=== PATIENT | male | born 1950 | race Caucasian/White ===

== ENCOUNTER → 2020-08-24 15:07 | Outpatient (BNVA) | payer OTHER, SELFPAY | PROVIDERS: Family Provider Emergency Medicine Emergency Medical Services; PCP Emergency Medicine Emergency Medical Services; Referring Provider Emergency Medicine Emergency Medical Services; Visit Provider Nurse Practitioner Family | DX: N40.1 Benign prostatic hyperplasia with lower urinary tract symptoms (principal); R32 Unspecified urinary incontinence; R97.20 Elevated prostate specific antigen [PSA] | CPT/HCPCS: 81003 ==

== ENCOUNTER → 2020-08-25 07:16 | Outpatient (BNVA) | payer OTHER, SELFPAY | PROVIDERS: Family Provider Emergency Medicine Emergency Medical Services; PCP Emergency Medicine Emergency Medical Services; Referring Provider Emergency Medicine Emergency Medical Services; Visit Provider Nurse Practitioner Family | DX: R32 Unspecified urinary incontinence (principal); N40.1 Benign prostatic hyperplasia with lower urinary tract symptoms; R97.20 Elevated prostate specific antigen [PSA] | CPT/HCPCS: 84153 ==

== ENCOUNTER 2020-09-12 09:17 | Outpatient (CLI) | payer OTHER, SELFPAY ==
--- NOTE | 2020-09-12 09:30 | MR_ITS ---
WS: [id number] MRI LEFT SHOULDER HISTORY: BICIPITAL TENDINITIS, LEFT SHOULDER COMPARISON: None available. TECHNIQUE: Multiplanar sequences of the shoulder joint are submitted. Mild hypertrophic changes involving the AC joint. Soft tissue and bone hypertrophy with increased T2 signal. Downward sloping of the acromion abutting the distal supraspinatus tendon and a moderate size osteophyte along the undersurface of the acromion. Very small amount of fluid in the subacromial bur sa. Biceps tendon is in normal position at the bicipital groove. No increased fluid within the biceps tendon sheath. No os acromion. Moderate narrowing of the acromial humeral space. There is increased T2 signal within the supraspinat us tendon beginning at the superior humeral head and extending distally. There is a small amount of f luid extending intrasubstance within the supraspinatus tendon there is a small insertion site tear an teriorly. Marked fraying along both the bursal and articular surfaces of the tendon. Infraspinatus an d supraspinatus tendons are intact. Subchondral cystic change in the posterior superior humeral head and also multiple subchondral cysts along the glenoid with loss of cartilage. Increased signal extend ing incompletely through the anterior and posterior labrum consistent with tears. MR/MR shoulder LT wo con* [id number] IMPRESSION: 1. Moderate degenerative changes at the glenohumeral joint with subchondral cy stic changes and loss of cartilage and joint space narrowing. 2. Distal 3 to 4 cm of the supraspinatus tendon with tendinopathy and a small insertion site tear with interstitial extension of fluid. 3. Acromiohumeral distance is narrowed due to a high riding humeral head and a n osteophyte from the distal undersurface of the acromion. Acromion is also sarah nsloping contributing to the encroachment. 4. Mild AC joint hypertrophy. 5. Abnormal signal in the anterior and posterior labrum from labral tears.
== END 2020-09-12 09:18 | disposition home or self-care (01) ==
LOC: RADWPI 09:20
PROVIDERS: PCP Emergency Medicine Emergency Medical Services; Visit Provider Orthopaedic Surgery
DX: M75.22 Bicipital tendinitis, left shoulder (principal)
CPT/HCPCS: 73221

== ENCOUNTER 2021-03-21 07:45 | Outpatient (CLI) | payer OTHER, SELFPAY ==
--- NOTE | 2021-03-21 07:53 | MR_ITS ---
WS: [id number] MRI BRAIN WITH AND WITHOUT CONTRAST HISTORY: MEMORY LOSS COMPARISON: None available. TECHNIQUE: Multiplanar imaging performed through the brain with MultiHance 20 ml's IV. No acute infarcts are seen. Damon-white matter differentiation is well preserved. There are a few scat tered T2 and FLAIR signal hyperintensities not unexpected for age. No prior infarcts. There is a prom inent perivascular space in the medial LEFT temporal lobe. Very mild cerebral atrophy. No susceptibility artifacts or prior lacunar infarcts. Ventricles and extra-axial spaces are normal. Clivus and pituitary gland are normal. Visualized posterior fossa and brainstem are also normal. Postcontrast images are negative for masses or vascular malformations. Dural venous sinuses are normal. Paranasal sinuses: Well aerated with no significant disease. Mastoid air cells: Moderate bilateral mastoid air cell effusions. Calvarium and scalp: Normal. MR/MR head wo/w con [id number] IMPRESSION: 1. No acute infarct or hemorrhage. 2. Mild atrophy and mild chronic microvascular ischemic disease. 3. No cerebral mass.
[2021-03-21] MEDS: gadobenate dimeglumine 20 mL vial IV (09:05)
== END 2021-03-21 07:46 | disposition home or self-care (01) ==
LOC: RADSHAW 07:49
PROVIDERS: PCP Emergency Medicine Emergency Medical Services; Visit Provider Emergency Medicine Emergency Medical Services
DX: R41.3 Other amnesia (principal); G31.9 Degenerative disease of nervous system, unspecified; I67.82 Cerebral ischemia
CPT/HCPCS: 70553; A9577

== ENCOUNTER 2021-06-01 12:04 | Outpatient (CLI) | payer OTHER, SELFPAY | END 2021-06-01 12:05 | disposition home or self-care (01) | LOC: LAB 12:07 | PROVIDERS: PCP Emergency Medicine Emergency Medical Services; Visit Provider Surgery | DX: K52.9 Noninfective gastroenteritis and colitis, unspecified (principal) | CPT/HCPCS: 83630; 87177; 87209; 87493; 87506 ==

== ENCOUNTER 2022-08-09 12:45 | Outpatient (CLI) | payer OTHER, SELFPAY ==
--- NOTE | 2022-08-09 13:10 | USCV_ITS ---
Bobby Kiran Age: 72 Gender: M : 1950 Exam Date: 08/09/2022 13:37 Ordering Phys: Edwar Mcgraw DO Technologist: PEACE Exam Location: [facility] [place] Indication: TIA BP: 128 / 80 HR: 52 Rhythm: Sinus Technical Quality: Adequate MEASUREMENTS (Male / Female) Normal Values 2D ECHO LVOT Diameter 2.0 cm LV Ejection Fraction MOD 2C 58.9 % LV Ejection Fraction 2C AL 58.0 % LA Diameter 3.1 cm LA Width 2.3 cm LA Height 5.1 cm RA Width 2.8 cm RA Height 4.0 cm Aorta at Sinotubular Diameter 2.7 cm M-MODE Aortic Annulus Diameter 2.9 cm LA Ao Ratio MM 1.0 MV E Point Septal Separation 0.7 cm DOPPLER AV Peak Velocity 147.0 cm/s LVOT Peak Velocity 116.0 cm/s AV Area Cont Eq vti 2.5 cm squared AV Area Cont Eq pk 2.5 cm squared MV Peak Velocity 95.0 cm/s MV Area PHT 2.9 cm squared Mitral E to A Ratio 0.9 MV E' Velocity 48.0 cm/s Mitral E to MV E' Ratio 9.4 Mitral E to LV E' Lateral Ratio 8.2 Mitral E to LV E' Septal Ratio 11.1 TR Peak Velocity 213.8 cm/s TR Peak Gradient 18.3 mmHg TR Mean Velocity 210.9 cm/s TR Mean Gradient 18.1 mmHg TR Velocity Time Integral 84.4 cm TV Peak E Velocity 49.0 cm/s Right Atrial Pressure 8.0 mmHg Pulmonary Artery Systolic Pressu 26.3 mmHg PV Peak Velocity 115.0 cm/s RV Acceleration Time 0.2 s RV Ejection Time 0.3 s RV AcT/ET 0.5 FINDINGS Left Ventricle Normal LV size with normal LV ejection fraction of 59%.. No significant wall motion abnormalities grade I/IV diastolic dysfunction (abnormal relaxation filling pattern), normal to mildly elevated filling pressures. Right Ventricle The right ventricle is normal in size and function. Right Atrium The right atrium is normal in size. Left Atrium Mildly increased left atrial size. Mitral Valve Mild mitral valve regurgitation. Aortic Valve No gross abnormalities noted Tricuspid Valve Trace of tricuspid regurgitation Pulmonic Valve Pulmonic valve not well visualized. Pericardium Normal pericardium without effusion. Aorta Normal ascending aorta dimension. IVC Normal inferior vena cava. CONCLUSIONS Normal LV size with normal LV ejection fraction of 59%. No gross wall motion normalities. Grade I/IV diastolic dysfunction (abnormal relaxation filling pattern), normal to mildly elevated filling pressures. Mildly increased left atrial size. Mild mitral valve regurgitation. Trace of tricuspid regurgitation There is no pericardial effusion. There are no intracardiac masses. No similar previous studies are available for comparison Dr Bridgette Cortes MD FACC (Electronically Signed) Final Date: 09 August 2022 20:27 S
--- NOTE | 2022-08-09 13:34 | USCV_ITS ---
Bobby Kiran Age: 72 Gender: M : 1950 Exam Date: 08/09/2022 13:53 Ordering Phys: Edwar Mcgraw DO Technologist: KIM Exam Location: [facility] [place] Indication: HX of TIA Risk Factors: Previous Vascular Surgery: Right Brachial BP: / Left Brachial BP: / Right Left Velocity (cm/s) Spectral Plaque Velocity (cm/s) Spectral Plaque Syst/Diast Broadening Syst/Diast Broadening 73.90/ 17.60 Prox CCA 76.10 / 12.40 72.80/ 19.80 Mid CCA 74.60 / 14.00 52.00/ 14.00 Distal CCA 63.10 / 17.10 41.90/ 14.00 Prox ICA 73.60 / 23.70 41.90/ 23.30 Mid ICA 72.30 / 26.30 89.30/ 32.00 Distal ICA 72.60 / 29.10 75.40 ECA 69.70 1.21 ICA/CCA 0.97 Antegrade Vertebral Antegrade 52.90/ 9.90 cm/s 56.40/ 15.40 cm/s Tri Subclavian Tri 268.9 145.7 0 0 FINDINGS Comparison: none available. No significant elevation of systolic or diastolic velocities. Waveforms are normal. No significant amount of calcified plaque or intimal thickening identified. Antegrade vertebral arteries. CONCLUSIONS Normal carotid doppler ultrasound. Dr. Nakia Boles DO (Electronically Signed) Final Date: 09 August 2022 14:28 S
== END 2022-08-09 12:46 | disposition home or self-care (01) ==
PROVIDERS: PCP Emergency Medicine Emergency Medical Services; Visit Provider Emergency Medicine Emergency Medical Services
DX: Z86.73 Personal history of transient ischemic attack (TIA), and cerebral infarction without residual deficits (principal); I08.1 Rheumatic disorders of both mitral and tricuspid valves
CPT/HCPCS: 93306; 93880

== ENCOUNTER 2024-06-21 15:07 | Outpatient (CLI) | payer OTHER, SELFPAY | END 2024-06-21 15:08 | disposition home or self-care (01) | LOC: LAB 15:13 | PROVIDERS: PCP Family Medicine; Visit Provider Urology | DX: R97.20 Elevated prostate specific antigen [PSA] (principal) | CPT/HCPCS: 36415; 84153 ==

== ENCOUNTER → 2024-06-30 08:24 | Outpatient (BNVA) | payer MEDICARE, OTHER, SELFPAY | PROVIDERS: PCP Family Medicine; Visit Provider Podiatrist Foot & Ankle Surgery | DX: M79.671 Pain in right foot (principal); L84 Corns and callosities | CPT/HCPCS: 73630; 99203 ==

== ENCOUNTER → 2024-08-18 14:39 | Outpatient (BNVA) | payer OTHER, SELFPAY | PROVIDERS: PCP Family Medicine; Visit Provider Podiatrist Foot & Ankle Surgery | DX: L84 Corns and callosities (principal) | CPT/HCPCS: 99213 ==

== ENCOUNTER 2024-10-19 07:34 | Outpatient (CLI) | payer OTHER, SELFPAY ==
[2024-10-19 07:53] VITALS: BMI 16.9
--- NOTE | 2024-10-19 07:56 | ECG_ITS ---
[place] Test Date: 2024-10-19 Pat Name: Bobby Kiran Department: Room: Gender: Male Brand Advisor: : 1950 Requested By: Jenny Kasper Order Number: [id number] Reading MD: ELENA SIMMONS Interpretive Statements Lung unchanged pre/post procedure; Intraprocedure shortess of breath; Symptoms resoled by discharge EXERCISE DATA: The patient was exercised by Marcelino protocol. Baseline heart rate was 89 beats per minute. Baseline blood pressure was 143/86 millimeters of mercury. Target heart rate was 147 beats per minute. Maximum heart rate achieved was 134, which was 91 % of the target heart rate. Maximum blood pressure was 160/112 millimeters of mercury. Total exercise time was 6 minutes 59 seconds. Maximum METs achieved was 10.2, maximum VO2 was 35.7. The reason for ending the test was maximum effort achieved. The patient complained of shortness of breath during the stress test, which then resolved at the end of the test. ELECTROCARDIOGRAM: BASELINE: Showed sinus rhythm, normal axis, no significant ST-T changes at the baseline noted. EXERCISE: At the peak exercise level, no significant ST-T changes suggestive of ischemia noted. RECOVERY: During the recovery period, heart rate dropped appropriately. No significant ST-T changes in the recovery suggestive of ischemia noted. CONCLUSION: 1. Exercise capacity fair. 2. Heart rate response was appropriate. 3. Blood pressure response was appropriate. 4. Symptoms not suggestive of ischemia. 5. Electrocardiogram portion of the stress test was not suggestive of ischemia. 6. Nuclear scan will be documented separately. Electronically Signed On 10-26-2024 19:17:57 CDT by ELENA SIMMONS [email or web address]
--- NOTE | 2024-10-19 07:57 | NMCV_ITS ---
NM gabriella perf SPECT r/s* [id number] Bobby Kiran Age: 74 Gender: M : 1950 Exam Date: 10/19/2024 08:43 Ordering Phys: Jenny Kasper MD Technologist: HAYDE Rahman Exam Location: [facility] Indications: cp STRESS TEST Please [facility] IMAGE PROTOCOL Rest/Stress 1 Exercise Day Radiopharmaceutical Dose (mCi) Administration Site Administered by Rest: Tc-99m 10.9 IV Maria Victoria Corbin, PROJECT ADMIN Sestamibi Stress:Tc-99m 32.8 IV Maria Vitcoria Corbin, PROJECT ADMIN Sestamibi Rest: 19-Oct-2024 60 Discovery 630 Stress: 19-Oct-2024 30 Discovery 630 Radiopharmaceutical was injected at 85 % maximum heart rate. Images obtained in supine and prone position. SPECT RESULTS Technical Quality: Good Raw Data Analysis: Normal Image Corrections: No attenuation or motion correction applied Summed Stress Score: 5 Summed Rest Score: 9 Summed Difference Score: 1 PERFUSION FINDINGS Medium sized area of fixed perfusion defect noted in basal to distal inferior wall suggestive of old myocardial infarction versus scarring. This study is negative for ischemia but shows old myocardial infarction in RCA territory. FUNCTIONAL RESULTS (calculated via Gated SPECT) Stress Image LV EF (%): 60 Stress EDV (mL):101 TID: 0.86 Stress ESV (mL):40 FUNCTIONAL FINDINGS: There appeared to be basal to distal inferior wall akinesis IMPRESSIONS Medium sized area of fixed perfusion defect noted in basal to distal inferior wall suggestive of old myocardial infarction versus scarring. This study is negative for ischemia but shows old myocardial infarction in RCA territory. Nayan Gómez MD (Electronically Signed) Final Date: 26 Oct 2024 12:34 S
[2024-10-19 09:30] VITALS: BP 100/70; PULSE 72
== END 2024-10-19 07:35 | disposition home or self-care (01) ==
LOC: CDL 07:35
PROVIDERS: PCP Family Medicine; Visit Provider Family Medicine
DX: R07.9 Chest pain, unspecified (principal); R93.1 Abnormal findings on diagnostic imaging of heart and coronary circulation; I25.2 Old myocardial infarction
CPT/HCPCS: 36415; 78452; 93017; 96374; A9500

== ENCOUNTER 2025-02-17 14:27 | Emergency (ER) | payer OTHER, SELFPAY ==
--- OUTSIDE RECORDS SUMMARY | 2024-05-31 08:00 | XMS_ITS | Encounter Summary ---
Author Name [facility] Address [address] [place] [address] Care Team Providers Care Transplanter Orchid Name Role Phone ILIANA GOODEN Primary Care Provider Unavailabl e Insurance Providers: All historical and current Section Date Range: From patient's date of to the date document was created. This section includes the names of all active insurance providers for the patient. Insurance Provider Type of Coverage Plan Name Start of Policy Coverage End of Policy Coverage Group Number Member ID Insurance Provider's Telephone Number Policy Canas's Name Patient's Relationship to Policy Canas MEDICARE (WNR) MEDICARE (M) PART A Jul 24, 2016 PART A [id number] [phone] LISSETTEMARIO PATIENT MEDICARE (WNR) MEDICARE (M) PART A Jul 24, 2016 PART A [id number] MARIO MCLAUGHLIN PATIENT Selected Encounter This section includes the information on record at [place] for the Encounter. Date/Time Encounter Type Encounter Description Reason Provider Source May 31, 2024 01:00 PM TELEHEALTH FACILITY FEE PRIMARY CARE/MEDICINE ICD-10-CM M79.674 Pain in right toe(s) JASMINA NICOLE Encounter Template Text not used by VA Assessments - Encounter Diagnoses This section includes the primary and secondary diagnoses documented for the Encounter. Date/Time Primary/Secondary Diagnosis Diagnosis Name Provider Source Jun 01, 2024 09:08 AM PRIMARY Pain in right toe(s) SATISH HOOKS [facility] Plan of Treatment: Future Appointments (+ 6 months) and Future Tests (+/- 45 days) The Plan of Treatment section includes [facility] care activities for the [facility] [place] [facility] This section includes future appointments and future orders which are active, pending or scheduled. Future Appointments This section includes appointments that were scheduled to occur 6 months from the date of the Encounter, up to a maximum of 20 appointments. The data comes from all [place] treatment facilities. Appointment Date/Time Appointment Type Appointme nt Facility Name Jun 14, 2024 11:41 AM AMBULATORY - MEDICINE [facility] Jun 30, 2024 09:00 AM AMBULATORY - MEDICINE [facility] Jul 07, 2024 11:00 AM AMBULATORY - MEDICINE [facility] Jul 22, 2024 10:40 AM AMBULATORY - MEDICINE [facility] Sep 20, 2024 08:00 AM AMBULATORY - MEDICINE [facility] Oct 04, 2024 02:30 PM AMBULATORY - MEDICINE [facility] Oct 19, 2024 08:15 AM AMBULATORY - MEDICINE [facility] Vital Signs: All taken on the encounter date This section contains inpatient and outpatient Vital Signs collected on the date of the Encounter. Date/Time Temperature Pulse Blood Pressure Respiratory Rate SP02 Pain Height Weight Body Mass Index Source May 31, 2024 01:07 PM 72 138/78 95 [facility] May 31, 2024 01:06 PM 71 18 97 0 72.0 234.8 32 [facility] Social History: Smoking Status (Most current) and Tobacco Use (All prior to encounter date) This section includes the most current, and the historical, smoking and tobacco- related health factors from the [place] facility where the Encounter took place. Current Smoking Status This section includes the most current smoking, or tobacco-related health factor, from the [place] facility where the Encounter took place. Date/Time Current Smoking Status Comment Alem willis Jan 15, 2024 09:00 AM VA-TOBACCO FORMER USER [facility] Tobacco Use History This section includes a history of the smoking, or tobacco-related health factors, that were collected on or before the date of the Encounter. The data comes from the [place] facility where the Encounter took place. Date/Time Smoking Status/Tobacco Use Comment F acility Jan 15, 2024 09:00 AM VA-TOBACCO QUIT 15 YRS OR MORE [facility] Apr 30, 2022 01:00 PM VA-TOBACCO FORMER USER [facility] Apr 30, 2022 01:00 PM VA-TOBACCO QUIT 15 YRS OR MORE [facility] Mar 13, 2021 11:00 AM VA-TOBACCO FORMER USER [facility] Mar 13, 2021 11:00 AM VA-TOBACCO QUIT 15 YRS OR MORE [facility] Mar 24, 2018 11:33 AM QUIT TOBACCO >7 YEARS AGO [facility] Feb 11, 2018 02:19 PM QUIT TOBACCO >7 YEARS AGO [facility] Apr 07, 2008 09:34 AM QUIT TOBACCO >7 YEARS AGO [facility] Dec 23, 2007 03:21 PM QUIT TOBACCO >7 YEARS AGO [facility] Advance Directives: All historical and current Section Date Range: From patient's date of to the date document was created. This section includes ALL of a patient's completed or amended [place] Advance and Rescinded Directives. The entries below indicate that a directive exists for the patient, but an actual copy is not included with this document. The data comes from all [facility]. Date Advance Directives Provider Source Mar 17, 2017 ADVANCE DIRECTIVE SEJAL ACOSTA [facility]UL[facility] Radiology Reports: +/- 30 days of the encounter Radiology Reports For cases when an order for radiology services may have been completed prior to the date of the Encounter, the report list includes the Radiology Reports that were completed up to 30 days before dateof the Encounter. For cases when an order for radiology services may have been completed after the date of the Encounter, the report list also includes the Radiology Reports that were completed up to30 days after date of the Encounter. The data comes from all [place] treatment facilities. Date/Time Radiology Report Provider Source May 31, 2024 03:27 PM FOOT,RIGHT,3 VIEWS OR MORE: MARYNarcisaSHYMARIO MADELINE [id number] -1950 M Exm Date: MAY 31, 2024@15:27 Req Phys: JASMINA NICOLE Loc: PB-POC CVT POCKET MAKER(PRO) (Req'g Loc) Img Loc: PB-XRAY [place] Service: [place] [address] (Case [id number] COMPLETE) FOOT,RIGHT,3 VIEWS OR MORE (RAD Detailed) CPT:66501 Proc Modifiers : RIGHT Reason for Study: pain of 5th toe, right foot. Clinical History: Report Status: Verified Date Reported: MAY 31, 2024 Date Verified: MAY 31, 2024 Data Support Specialist E-Sig: Report: EXAM: Right foot AP, oblique, and lateral views. FINDINGS: There is no acute fracture or dislocation. There is hallux valgus. There are degenerative changes including bunion deformity involving the first MTP joint. Impression: 1. No evidence of acute osseous injury involving the right foot. 2. Hallux valgus. 3. Degenerative changes Primary Interpreting Staff: Lenka Fritz M.D., Radiology (Data Support Specialist, no e-sig) /LENKA LUIS [facility] Encounter Notes: All associated encounter notes This section contains the clinical notes associated to the Encounter. Date/Time Encounter Note(s) Provider Source May 31, 2024 12:58 PM PRIMARY CARE NURSI NG NOTE: LOCAL TITLE: PRIMARY CARE NURSING PROGRESS NOTE (TEXT) NURSING P STANDARD TITLE: PRIMARY CARE NURSING NOTE DATE OF NOTE: MAY 31, 2024@12:58 ENTRY DATE: MAY 31, 2024@12:58:58 AUTHOR: SATISH HOOKS EXP COSIGNER: URGENCY: STATUS: COMPLETED Established Patient MARIO MCLAUGHLIN IS A 73 YEAR OLD MALE BEING SEEN IN CLINIC MAY 31, 2024. REASON FOR VISIT: here today with c/o Redness and Pain to Right 5th toe/foot. He reports is has been a problem for several months and would like something done. On the Fifth toe there is a Calus on the inside of the 5th toe. He reports it is painful to touch. He is using Wood pads and gets some relief from that. He reports it is much better when he is not wearing shoes. Are you receiving care any where other than the [facility]? No HEALTH AND SURGICAL HISTORY: Does patient report using home oxygen? No CURRENT ACTIVE MEDICATIONS FOR REVIEW: Allergies/ADRs (Tool #5) FACILITY ALLERGY/ADR -------- No Remote Allergy/ADR Data available for this patient [facility] No Known Allergies Med. Reconciliation (Tool #1) INCLUDED IN THIS LIST: Alphabetical list of active outpatient prescriptions dispensed from this [place] (local) and dispensed from another [place] or [facility] facility (remote) as well as inpatient orders (local pending and active), local clinic medications, locally documented non-VA medications, and local prescriptions that have or been discontinued in the past 90 days. Non-VA Meds Last Documented On: Jan 09, 2023 NOTE The display of VA prescriptions dispensed from another [place] or [facility] facility (remote) is limited to active outpatient prescription entries matched to National Drug File at the originating site and may not include some items such as investigational drugs, compounds, etc. NOT INCLUDED IN THIS LIST: Medications self-entered by the patient into personal health records (i.e. [employer]) are NOT included in this list. Non-VA medications documented outside this [place], remote inpatient orders (regardless of status) and remote clinic medications are NOT included in this list. The patient and provider must always discuss medications the patient is taking, regardless of where the medication was dispensed or obtained. OUTPT ATORVASTATIN CALCIUM 20MG TAB (Status = Active/Suspended) TAKE ONE TABLET BY MOUTH EVERY EVENING FOR HIGH CHOLESTEROL Rx# [id number] Last Released: 04/24/24 Qty/Days Supply: Rx Expiration Date: 01/15/25 Refills Remainin Indication: FOR HIGH CHOLESTEROL OUTPT CETIRIZINE HCL 10MG TAB (Status = Active) TAKE ONE TABLET BY MOUTH ONCE A DAY FOR ALLERGY SYMPTOMS Rx# [id number] Last Released: 02/11/24 Qty/Days Supply: Rx Expiration Date: 02/09/25 Refills Remainin Indication: FOR ALLERGY SYMPTOMS Non-VA CHOLECALCIF 50MCG (D3-2,000UNIT) TAB TAKE ONE TABLET BY MOUTH ONCE A DAY Medication prescribed by Non-VA provider OUTPT MEMANTINE HCL 10MG TAB (Status = Discontinued) TAKE ONE TABLET BY MOUTH EVERY MORNING AND TAKE ONE TABLET EVERY EVENING Rx# [id number] Last Released: 04/13/24 Qty/Days Supply: Rx Expiration Date: 07/07/24 Refills Remainin OUTPT MEMANTINE HCL 10MG TAB (Status = Active/Suspended) TAKE ONE TABLET BY MOUTH EVERY MORNING AND TAKE ONE TABLET EVERY EVENING Rx# [id number] Last Released: QtDays Supply: Rx Expiration Date: 07/18/24 Refills Remainin OUTPT MONTELUKAST NA 10MG TAB (Status = Discontinued) TAKE ONE TABLET BY MOUTH EVERY EVENING Rx# [id number] Last Released: 12/05/23 Qty/Days Supply: Rx Expiration Date: 03/24/24 Refills Remainin OUTPT MONTELUKAST NA 10MG TAB (Status = Active) TAKE ONE TABLET BY MOUTH EVERY EVENING Rx# [id number] Last Released: 03/29/24 Qty/Days Supply: Rx Expiration Date: 03/27/25 Refills Remainin OUTPT SILDENAFIL CITRATE 100MG TAB (Status = Active) TAKE ONE TABLET BY MOUTH EVERY WEEK NEEDED FOR ERECTILE DYSFUNCTION (TAKE 60 MINUTES PRIOR TO SEXUAL ACTIVITY) - LIMIT 4 DOSES PER 30 DAYS Rx# [id number] Last Released: 05/28/24 Qty/Days Supply: Rx Expiration Date: 05/25/25 Refills Remainin OUTPT TAMSULOSIN HCL 0.4MG CAP (Status = Active) TAKE ONE CAPSULE BY MOUTH EVERY EVENING APPROXIMATELY 30 MINUTES AFTER THE SAME MEAL EACH DAY (FOR PROSTATE) Rx# [id number] Last Released: 04/30/24 Qty/Days Supply: Rx Expiration Date: 01/30/25 Refills Remainin SUPPLIES PHARMACY TERMS AND POSSIBLE PATIENT ACTIONS INPT = [place] inpatient order IV = [place] intravenous medication OUTPT = [place] outpatient prescription PHARMACY POSSIBLE PATIENT TERMS EXPLANATION ACTIONS -------- --- ACTIVE A prescription that can be If you have refills, filled at the local [place] pharmacy. you may request a refill of this prescription from your [place] pharmacy. CLINIC A medication you received during If you have questions a visit to a [place] clinic or about this medication emergency department. contact your [place] healthcare team. DISCONTINUED A prescription your provider has Contact your [place] stopped. It is no longer healthcare team if you available to be sent to you or need more of this picked up at the [place] pharmacy medication. window. A prescription which is too old Contact your [place] to fill. This does not refer to healthcare team if you the expiration date of the need more of this medication in the container. medication. NON-VA A medication that came from If this medication someplace other than a VA information is pharmacy. This may be a incorrect or out of prescription from either the VA date, please tell your or non VA providers that was VA healthcare team. filled outside the VA. Or, it may be an [id number] (OTC), herbal, dietary supplements or sample medication. ON HOLD An active prescription that will Contact your VA not be filled until pharmacy pharmacy when you need resolves the issue. more of this medication. PARKED An active prescription that will Contact your VA not be filled until the patient pharmacy when you need requests it. this medication. PENDING This prescription order has been If you have been sent to the pharmacy for review instructed to start and is not ready yet. this medication now, contact your VA pharmacy. SUSPENDED An active prescription that is Contact your VA not scheduled to be filled yet. pharmacy if you need You should receive it before this medication now. you run out. ======== Patient reports taking medications as IS PATIENT TAKING ANY OVER THE COUNTER MEDICATIONS, SUCH VITAMINS OR HERBAL SUPPLEMENTS, INCLUDING ANY MEDICATIONS PRESCRIBED BY ANOTHER PHYSICIAN? No ALLERGIES/ADVERSE REACTIONS: Patient has answered NKA Does patient have any new allergies to report since last visit? NO VITALS: TEMPERATURE: 97.8 F [36.6 C] (01/15/2024 09:05) BP: 137/84 (01/15/2024 09:44) RESP: 19 (01/15/2024 09:05) PULSE: 57 (01/15/2024 09:05) HT: 72.0 in [182.9 cm] (01/15/2024 09:05) WT: 230.8 lb [104.69 kg] (01/15/2024 09:05) BMI: 31.4 PAIN ASSESSMENT: (Most Recent Pain Score in Vitals Package: 0 (01/15/2024 09:05) ) The patient indicated that they and their close contacts have not traveled outside of the [place] in the past 21 days. The patient reports the following symptoms: No symptoms present The patient is not immunocompromised. The patient does not report having a history of Multi Drug Resistant Organism (MDRO) within the last five years. The patient does not report having been exposed to measles, chickenpox, or zoster in last 30 days. Patient reports no pain at this visit. Pain Score = 0. STRESS: Thank you for your service. Now let us serve you. At the [facility], we strive to provide you with exceptional health care that improves your health and well-being. Are you feeling sad, empty, or depressed? No Do you need to talk about things in your life that worry you or cause you stress? No Do you need to talk about personal problems, family problems, alcohol use, drug use, or mental or emotional illness? No SUICIDE SCREENING: The patient was asked, Over the past two weeks, how often have you been bothered by thoughts that you would be better off or of hurting yourself in some way? Not At All SPIRITUAL ASSESSMENT: Are there sabianist practices or spiritual concerns you want the merchandise presentation manager, your physician, and other health care team members to immediately know about? No Patient advised to call the clinic for any concerns, questions, or symptoms. Patient and/or caregiver verbalized understanding of plan of care. /reyna/ SATISH HOOKS LPN Signed: 05/31/2024 13:26 SATISH HOOKS [facility]
--- OUTSIDE RECORDS SUMMARY | 2024-05-31 08:01 | XMS_ITS | Encounter Summary ---
Author Name [facility] [place] [place] Organization [facility] [place] Address [address] [place] [address] Care Team Providers Care Oil Sales And Service Rep Name Role Phone GIACOMOILIANA MAGAÑA Primary Care Provider Unavailabl e Insurance Providers: [...] PART A Jul 24, 2016 PART A [id number] LISSETTEMARIO PATIENT MEDICARE (WNR) MEDICARE (M) PART A Jul 24, 2016 PART A [id number] MARIO MCLAUGHLIN PATIENT Selected Encounter This section includes the information on record at [place] for the Encounter. Date/Time Encounter Type Encounter Description Reason Provider Source May 31, 2024 01:01 PM OFFICE O/P EST LOW 20 MIN PRIMARY CARE/MEDICINE ICD-10-CM M79.674 Pain in right toe(s) JASMINA NICOLE Encounter Template Text not used by [facility] Assessments - Encounter Diagnoses This section includes the primary and secondary diagnoses documented for the Encounter. Date/Time Primary/Secondary Diagnosis Diagnosis Name Provider Source May 31, 2024 01:28 PM PRIMARY Pain in right toe(s) [facility]AS[facility]A NICOLE [facility] Plan of Treatment: Future Appointments (+ 6 months) and Future Tests (+/- 45 days) The Plan of Treatment section includes future care activities for the [facility] This section includes future appointments and future orders which are active, pending or scheduled. Future Appointments This section includes appointments that were scheduled to occur 6 months from the date of the Encounter, up to a maximum of 20 appointments. The data comes from all [facility]. Appointment Date/Time Appointment Type Appointme nt Facility Name Jun 14, 2024 11:41 AM AMBULATORY - MEDICINE [facility] Jun 30, 2024 09:00 AM [facility] Jul 07, 2024 11:00 AM [facility] Jul 22, 2024 10:40 AM AM[facility] Sep 20, 2024 08:00 AM AMBULATORY - MEDICINE [facility] Oct 04, 2024 02:30 PM AMBULATORY - MEDICINE [facility] Oct 19, 2024 08:15 AM AMBULATORY - MEDICINE [facility] Advance Directives: All historical and current Section Date Range: From patient's date of to the date document was created. This section includes ALL of a patient's completed or amended [place] Advance and Rescinded Directives. The entries below indicate that a directive exists for the patient, but an actual copy is not included with this document. The data comes from all [facility]. Date Advance Directives Provider Source Mar 17, 2017 ADVANCE DIRECTIVE SEJAL ACOSTA [facility] Radiology Reports: +/- 30 days of the [...] the Encounter. The data comes from all [facility] treatment facilities. 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 Clinical History: Report Status: Verified Date Reported: MAY 31, 2024 Date Verified: MAY 31, 2024 Sulfuric Acid Plant Operator E-Sig: Report: EXAM: Right foot AP, oblique, and lateral views. FINDINGS: There is no acute fracture or dislocation. There is hallux valgus. There are degenerative changes including bunion deformity involving the first MTP joint. Impression: 1. No evidence of acute osseous injury involving the right foot. 2. Hallux valgus. 3. Degenerative changes Primary Interpreting Staff: Lenka Fritz M.D., Radiology (Sulfuric Acid Plant Operator, no e-sig) /LENKA LUIS [facility] Encounter Notes: All associated encounter notes This section contains the clinical notes associated to the Encounter. Date/Time Encounter Note(s) Provider Source May 31, 2024 01:21 PM PRIMARY CARE PROGR ESS NOTE: LOCAL TITLE: PRIMARY CARE CLINIC PROGRESS NOTE PB STANDARD TITLE: PRIMARY CARE PROGRESS NOTE DATE OF NOTE: MAY 31, 2024@13:21 ENTRY DATE: MAY 31, 2024@13:21:42 AUTHOR: JASMINA NICOLE EXP COSIGNER: URGENCY: STATUS: COMPLETED SUBJECTIVE: MARIO MCLAUGHLIN is a 73 y.o.MALE. HPI: contacted via Telehealth appointment due to location/staffing limitations. Patient is located at the [facility] for this appointment, whereas [facility] affiliated provider is located off-site utilizing remotely secured video connection. Patient is being seen for a pain of right 5th toe with callus to medial side of this toe. he has not been evaluated by podiatry. he is not diabetic. denies injury to foot. denies fever. denies drainag from affected area. He is agreeable to podiatry apt. Problem List 1) Depression 2) Elevated PSA 3) Primary erectile dysfunction 4) Insomnia 5) Memory loss 6) Lacunar infarction 7) COPD - Chronic Obstructive Pulmonary Disease (SCT [id number]) 8) Carotid artery stenosis 9) Bilateral tinnitus 10) Sensorineural hearing loss of bilateral ears 11) Mild neurocognitive disorder 12) Allergic Rhinitis ([facility] [id number]) Active Outpatient Medications (including Supplies): Active Outpatient Medications Status 1) ATORVASTATIN CALCIUM 20MG TAB TAKE ONE TABLET BY ACTIVE (S) MOUTH EVERY EVENING FOR HIGH CHOLESTEROL 2) CETIRIZINE HCL 10MG TAB TAKE ONE TABLET BY MOUTH ONCE ACTIVE A DAY FOR ALLERGY SYMPTOMS 3) MEMANTINE HCL 10MG TAB TAKE ONE TABLET BY MOUTH EVERY ACTIVE (S) MORNING AND TAKE ONE TABLET EVERY EVENING 4) MONTELUKAST NA 10MG TAB TAKE ONE TABLET BY MOUTH ACTIVE EVERY EVENING 5) SILDENAFIL CITRATE 100MG TAB TAKE ONE TABLET BY MOUTH ACTIVE EVERY WEEK NEEDED FOR ERECTILE DYSFUNCTION (TAKE 60 MINUTES PRIOR TO SEXUAL ACTIVITY) - LIMIT 4 DOSES PER 30 DAYS 6) TAMSULOSIN HCL 0.4MG CAP TAKE ONE CAPSULE BY MOUTH ACTIVE EVERY EVENING APPROXIMATELY 30 MINUTES AFTER THE SAME MEAL EACH DAY (FOR PROSTATE) Active Non-VA Medications Status 1) Non-VA CHOLECALCIF 50MCG (D3-2,000UNIT) TAB 50MCG BY ACTIVE MOUTH ONCE A DAY 7 Total Medications Allergies: Patient has answered NKA Review of Systems Systemic: Denies fatique, fever, chills, or weight loss CV: Denies chest pain, palpitations Pulm: Denies hemoptysis GI: Denies constipation, bloody stools. Musculo- skeletal: Denies swelling Neuro: Denies slurred speech Skin: Denies abnormal lesions; denies any new rashes PSYCH: Denies SI/HI OBJECTIVE: Vital Signs Temperature: 97.8 F [36.6 C] (01/15/2024 09:05) Respiratory Rate: 18 (05/31/2024 13:06) Pulse Rate: 72 (05/31/2024 13:07) Blood Pressure: 138/78 (05/31/2024 13:07) HT: 72.0 in [182.9 cm] (05/31/2024 13:06) WT: 234.8 lb [106.50 kg] (05/31/2024 13:06) BMI: 31.9 SPO2: 95% (05/31/2024 13:07) Vital Signs per chart to date and reviewed by signee. Physical Exam: exam completed utilising telecart with clear steth. General: NAD noted, A&Ox3, pleasant, appears stated age HEENT: NCAT Neck: Supple, normal ROM Heart: s1 s2 wnl, no murmurs noted. Resp: Respirations even and unlabored; CTA APL Abdomen: Non-distended appearing Musculo- skeletal: No obvious deformity skin: 5th toe right foot with callus present. no open lesions, drainage, or erythema present. Neuro: Grossly intact Psych: Affect normal, answers questions appropriately throughout visit A/P: ASSESSMENT and PLAN Callus of right 5th toe: poditary consult placed. keep area clean and dry. place barrier between 4th and 5th toe. I would suggest getting a wider shoe as the shoes he has on do appear narrow. f/u w/ podiatry as directed. Stable. Discussed health conditions listed above and medications with patient; med rec completed. Continue current regimen as prescribed by PCP and specialists. RTC as needed if developing any new or worsening symptoms. Please notify PACT with medication changes or for orders coordination as needed if seen by a specialist in the future. Will f/u with patient once updated labs / imaging / testing received; otherwise f/u as listed below. Follow-up: months and/or as needed. All questions answered; agrees to plan of care. Follow up as listed above, annually, and as needed. Keep all appointments. Medications Reconciled. Time spent 30 minutes. Discussed with patient that in the event of community imaging / testing being ordered in the future, once the imaging / testing has been completed, please notify PACT of completion at outside facility if not called with results within 1 week by a [facility] PACT member; this is due to intermittent lapses in notification of imaging completion within [facility]. Appointment was conducted via [facility] Video Connect, Video to home, or Telehealth via in-person interview within the local [place] [facility] as discussed in note above. VVC / Video to home / Telehealth via in-person interview appointment information: The following items were reviewed: - The nature of telehealth, its benefits, and risks. - Confidentiality and its limits. - The importance of having a confidential location for the service. - The emergency plan. - The appointment should be treated like an in person appointment (no smoking or driving during session, showing up fully dressed, etc.) *The Virtual Medical Room locked for this encounter (VVC or Video to home). *A survey of the environment was conducted and it is appropriate to conduct a CVT/VVC appointment. *Confirmed [place]'s Non-VA location for appointment (VVC or Video to home). *[place] was notified of right to decline Telehealth services and eligibility for other options. consented to be seen via CVT/VVC/Telehealth via in-person interview at local CB. EMERGENCY PLAN In the event of an emergency, the [place] or family will call emergency services, if capable. Teleprovider will remain in the virtual medical room until emergency response arrives and handoff to emergency services is complete. If is unable to make emergency call, Teleprovider is to call the national E911 service at [phone] and ask to be connected to emergency services for the [place]'s location. Crisis Hotline: 589.439.2973 [employer] Help Desk ([employer]): 366.259.7064 or [phone] Verified Provider's location and contact information for this appointment: Other Location: [facility] or Remote from home /es/ DIMAS SANCHEZ-ADAN NASSAR [facility] Signed: 05/31/2024 13:26 JASMINA NICOLE [facility]
--- OUTSIDE RECORDS SUMMARY | 2024-06-14 06:41 | XMS_ITS | Encounter Summary ---
Author Name [facility] [place] Organization [place] Address [address] [place] [address] Care Team Providers Care International Marketing Specialist Name Role Phone ILIANA GOODEN Primary Care [...] PART A Jul 24, 2016 PART A [id number] LISSETTEMARIO PATIENT MEDICARE (WNR) MEDICARE (M) PART A Jul 24, 2016 PART A [id number] MARIO MCLAUGHLIN PATIENT Selected Encounter This section includes the information on record at [place] for the Encounter. Date/Time Encounter Type Encounter Description Reason Provider Source Jun 14, 2024 11:41 AM OFF/OP EST OCTOBER X REQ PHY/QHP PRIMARY CARE/MEDICINE ICD-10-CM M79.674 Pain in right toe(s) CUSTRED,LEIGH J IHE Encounter Template Text not used by [place] Assessments - Encounter Diagnoses This section includes the primary and secondary diagnoses documented for the Encounter. Date/Time Primary/Secondary Diagnosis Diagnosis Name Provider Source Jun 14, 2024 02:23 PM PRIMARY Pain in right toe(s) DEELEIGH Rea [facility] Plan of Treatment: Future Appointments (+ 6 months) and Future Tests (+/- 45 days) The Plan of Treatment section includes future care activities for the patient from all [place] treatmentfacilities. This section includes future appointments and future orders which are active, pending or scheduled. Future Appointments This section includes appointments that were scheduled to occur 6 months from the date of the Encounter, up to a maximum of 20 appointments. The data comes from all [place] treatment facilities. Appointment Date/Time Appointment Type Appointme nt Facility Name Jun 30, 2024 09:00 AM AMBULATORY - MEDICINE [facility] Jul 07, 2024 11:00 AM AMBULATORY - MEDICINE [facility] Jul 22, 2024 10:40 AM AMBULATORY - MEDICINE [facility] Sep 20, 2024 08:00 AM AMBULATORY - MEDICINE [facility] Oct 04, 2024 02:30 PM AMBULATORY - MEDICINE [facility] Oct 19, 2024 08:15 AM AMBULATORY - MEDICINE [facility] Vital Signs: All taken on the encounter date This section contains inpatient and outpatient Vital Signs collected on the date of the Encounter. Date/Time Temperature Pulse Blood Pressure Respiratory Rate SP02 Pain Height Weight Body Mass Index Source Jun 14, 2024 01:02 PM 97.3 92 143/88 [facility] Social History: Smoking Status (Most current) and Tobacco Use (All prior to encounter date) This section includes the most current, and the historical, smoking and tobacco- related health factors from the [place] facility where the Encounter took place. Current Smoking Status This section includes the most current smoking, or tobacco-related health factor, from the [place] facility where the Encounter took place. Date/Time Current Smoking Status Mynor willis Jan 15, 2024 09:00 AM VA-TOBACCO FORMER USER [facility] Tobacco Use History This section includes a history of the smoking, or tobacco-related health factors, that were collected on or before the date of the Encounter. The data comes from the [place] facility where the Encounter took place. Date/Time Smoking Status/Tobacco Use Comment F acility Jan 15, 2024 09:00 AM VA-TOBACCO QUIT 15 YRS OR MORE [facility] Apr 30, 2022 01:00 PM VA-TOBACCO FORMER USER [facility] Apr 30, 2022 01:00 PM VA-TOBACCO QUIT 15 YRS OR MORE [facility] Mar 13, 2021 11:00 AM VA-TOBACCO FORMER USER [facility] Mar 13, 2021 11:00 AM VA-TOBACCO QUIT 15 YRS OR MORE [facility] Mar 24, 2018 11:33 AM QUIT TOBACCO >7 YEARS AGO [facility] Feb 11, 2018 02:19 PM QUIT TOBACCO >7 YEARS AGO [facility] Apr 07, 2008 09:34 AM QUIT TOBACCO >7 YEARS AGO [facility] Dec 23, 2007 03:21 PM QUIT TOBACCO >7 YEARS AGO [facility] Advance Directives: All historical and current Section Date Range: From patient's date of to the date document was created. This section includes ALL of a patient's completed or amended [place] Advance and Rescinded Directives. The entries below indicate that a directive exists for the patient, but an actual copy is not included with this document. The data comes from all [place] facilities. Date Advance Directives Provider Source Mar 17, 2017 ADVANCE DIRECTIVE SEJAL ACOSTA [facility] Radiology Reports: +/- 30 days of the [...] the Encounter. The data comes from all [place] treatment facilities. Date/Time Radiology Report Provider Source May 31, 2024 03:27 PM FOOT,RIGHT,3 VIEWS OR MORE: MARIO MCLAUGHLIN [id number] -1950 M Exm Date: MAY 31, 2024@15:27 Req Phys: JASMINA NICOLE Loc: PB-POC CVT E/M ENGINEER(PRO) (Req'g Loc) Img Loc: PB-XRAY [place] Service: Unknown [place] [address] (Case [id number] COMPLETE) FOOT,RIGHT,3 VIEWS OR MORE (RAD Detailed) CPT:22471 Proc Modifiers : RIGHT Reason for Study: pain of 5th toe, right foot. Clinical History: Report Status: Verified Date Reported: MAY 31, 2024 Date Verified: MAY 31, 2024 Salesperson Jewelry E-Sig: Report: EXAM: Right foot AP, oblique, and lateral views. FINDINGS: There is no acute fracture or dislocation. There is hallux valgus. There are degenerative changes including bunion deformity involving the first MTP joint. Impression: 1. No evidence of acute osseous injury involving the right foot. 2. Hallux valgus. 3. Degenerative changes Primary Interpreting Staff: Lenka Fritz M.D., Radiology (Salesperson Jewelry, no e-sig) /LENKA LUIS [facility] Encounter Notes: All associated encounter notes This section contains the clinical notes associated to the Encounter. Date/Time Encounter Note(s) Provider Source Jun 14, 2024 01:02 PM NURSING PROGRESS N OTE: LOCAL TITLE: NURSING NOTE PB STANDARD TITLE: NURSING PROGRESS NOTE DATE OF NOTE: JUN 14, 2024@13:02 ENTRY DATE: JUN 14, 2024@13:02:05 AUTHOR: LEIGH PRICE EXP COSIGNER: URGENCY: STATUS: COMPLETED Blood Pressure: 143/88 Pulse: 92 Temperature: 97.3 F (36.3 C) Pulse Oximetry: 97% Active Outpatient Medications: Active Outpatient Medications (including Supplies): Active Outpatient Medications Status 1) ATORVASTATIN CALCIUM 20MG TAB TAKE ONE TABLET BY MOUTH EVERY ACTIVE (S) EVENING Indication: FOR HIGH CHOLESTEROL 2) CETIRIZINE HCL 10MG TAB TAKE ONE TABLET BY MOUTH ONCE A DAY ACTIVE Indication: FOR ALLERGY SYMPTOMS 3) MEMANTINE HCL 10MG TAB TAKE ONE TABLET BY MOUTH EVERY ACTIVE (S) MORNING AND TAKE ONE TABLET EVERY EVENING 4) MONTELUKAST NA 10MG TAB TAKE ONE TABLET BY MOUTH EVERY ACTIVE EVENING 5) SILDENAFIL CITRATE 100MG TAB TAKE ONE TABLET BY MOUTH EVERY ACTIVE (S) WEEK NEEDED FOR ERECTILE DYSFUNCTION (TAKE 60 MINUTES PRIOR TO SEXUAL ACTIVITY) - LIMIT 4 DOSES PER 30 DAYS 6) TAMSULOSIN HCL 0.4MG CAP TAKE ONE CAPSULE BY MOUTH EVERY ACTIVE EVENING APPROXIMATELY 30 MINUTES AFTER THE SAME MEAL EACH DAY (FOR PROSTATE) Active Non-VA Medications Status 1) Non-VA CHOLECALCIF 50MCG (D3-2,000UNIT) TAB 50MCG BY MOUTH ACTIVE ONCE A DAY CC: Banks presents stating pain in toe. Subjective: presents complaining of pain in right little toe. He was seen by Pact team 05/31/24 and toe was addressed during that visit. states he has podiatry appointment scheduled with Dr. Grant 06/30/2023. O/A: is alert and oriented. States pain in right little toe continues and is inquiring about if podiatry appointment can be moved to sooner date. Right toes assessed. Forth toe pushes into side of little toe. Small calous noted. Mild redness noted to little toe but no heat, drainage, or signs of infection. Circulation check normal. Plan/ Intervention: Banks appointment with podiatry in 2 weeks, encouraged to keep appointment as scheduled. Educated on signs of complications such as redness, swelling, warmth and increased pain requires immediate evaluation either in clinic or ER. 72 hour ER reporting information given with understanding. 2x2 guaze given to to place between toes with stated improvement of discomfort. Encouraged to rest when able with foot elevated, and use guaze between toes. If any changes to toe seek evaluation. RTC: As scheduled and as needed. /reyna/ LEIGH CARRIZALES, [facility] Signed: 06/14/2024 13:17 Receipt Acknowledged By: 06/14/2024 13:24 /es/ JASMINA CASANOVA D.O. for ILIANA PRICE,[facility]IGH [facility]
--- OUTSIDE RECORDS SUMMARY | 2024-09-20 03:00 | XMS_ITS | Encounter Summary ---
Author Name [facility] Organization [facility] [place] Address [address] [place] [address] Care Team Providers Care Valver Name Role Phone JENNY KASPER Primary Care Provider Unavailabl e Insurance Providers: [...] PART A Jul 24, 2016 PART A [id number] [phone] [place] PATIENT MEDICARE (WNR) MEDICARE (M) PART A Jul 24, 2016 PART A [id number] MARIO MCLAUGHLIN PATIENT Selected Encounter This section includes the information on record at [place] for the Encounter. Date/Time Encounter Type Encounter Description Reason Provider Source Sep 20, 2024 08:00 AM OFF/OP EST OCTOBER X REQ PHY/QHP PRIMARY CARE/MEDICINE ICD-10-CM R07.9 Chest pain, unspecified CUSTRED,LUCERO Lucia Mike Encounter Template Text not used by [place] Assessments - Encounter Diagnoses This section includes the primary and secondary diagnoses documented for the Encounter. Date/Time Primary/Secondary Diagnosis Diagnosis Name Provider Source Sep 20, 2024 09:06 AM PRIMARY Chest pain, unspecified LUCERO JENSEN [facility] Plan of Treatment: Future Appointments (+ 6 months) and Future Tests (+/- 45 days) The Plan of Treatment section includes future care activities for the patient from all [place] [facility]. This section includes future appointments and future orders which are active, pending or scheduled. Future Appointments This section includes appointments that were scheduled to occur 6 months from the date of the Encounter, up to a maximum of 20 appointments. The data comes from all [place] treatment facilities. Appointment Date/Time Appointment Type Appointme nt Facility Name Oct 04, 2024 02:30 PM AMBULATORY - MEDICINE [facility] Oct 19, 2024 08:15 AM AMBULATORY - MEDICINE [facility] [facility] Dec 27, 2024 09:30 AM AMBULATORY - PSYCHIATRY PO [place] [facility] Dec 27, 2024 09:31 AM AMBULATORY - PSYCHIATRY [facility] Dec 30, 2024 08:30 AM AMBULATORY - MEDICINE [facility] Jan 03, 2025 08:00 AM AMBULATORY - MEDICINE [facility] Jan 14, 2025 08:30 AM AMBULATORY - MEDICINE [facility] Jan 14, 2025 08:45 AM AMBULATORY - MEDICINE [facility] Jan 31, 2025 09:00 AM AMBULATORY - MEDICINE [facility] Feb 03, 2025 08:00 AM AMBULATORY - MEDICINE [facility] Feb 07, 2025 09:15 AM AMBULATORY - MEDICINE [facility] Feb 09, 2025 03:30 PM AMBULATORY - MEDICINE [facility] [facility] Feb 17, 2025 01:30 PM AMBULATORY - MEDICINE [facility] Feb 25, 2025 11:30 AM AMBULATORY - NONE [facility] [facility] Mar 02, 2025 01:30 PM AMBULATORY - MEDICINE [facility] [facility] Mar 03, 2025 11:30 AM AMBULATORY - MEDICINE [facility] [facility] Vital Signs: All taken on the encounter date This section contains inpatient and outpatient Vital Signs collected on the date of the Encounter. Date/Time Temperature Pulse Blood Pressure Respiratory Rate SP02 Pain Height Weight Body Mass Index Source Sep 20, 2024 08:49 AM 98.1 72 128/85 [facility] Social History: Smoking Status (Most current) and Tobacco Use (All prior to encounter date) This section includes the most current, and the historical, smoking and tobacco- related health factors from the [place] facility where the Encounter took place. Current Smoking Status This section includes the most current smoking, or tobacco-related health factor, from the [place] facility where the Encounter took place. Date/Time Current Smoking Status Comment Facil ity Jan 15, 2024 09:00 AM VA-TOBACCO FORMER USER [facility] Tobacco Use History This section includes a history of the smoking, or tobacco-related health factors, that were collected on or before the date of the Encounter. The data comes from the [place] facility where the Encounter took place. Date/Time Smoking Status/Tobacco Use Comment F acility Jan 15, 2024 09:00 AM VA-TOBACCO QUIT 15 YRS OR MORE [facility] Apr 30, 2022 01:00 PM VA-TOBACCO FORMER USER [facility] Apr 30, 2022 01:00 PM VA-TOBACCO QUIT 15 YRS OR MORE [facility] Mar 13, 2021 11:00 AM VA-TOBACCO FORMER USER [facility] Mar 13, 2021 11:00 AM VA-TOBACCO QUIT 15 YRS OR MORE [facility] Mar 24, 2018 11:33 AM QUIT TOBACCO >7 YEARS AGO [facility] Feb 11, 2018 02:19 PM QUIT TOBACCO >7 YEARS AGO [facility] Apr 07, 2008 09:34 AM QUIT TOBACCO >7 YEARS AGO [facility] Dec 23, 2007 03:21 PM QUIT TOBACCO >7 YEARS AGO [facility] Advance Directives: All historical and current Section Date Range: From patient's date of to the date document was created. This section includes ALL of a patient's completed or amended [place] Advance and Rescinded Directives. The entries below indicate that a directive exists for the patient, but an actual copy is not included with this document. The data comes from all [place] facilities. Date Advance Directives Provider Source Mar 17, 2017 ADVANCE DIRECTIVE SEJAL ACOSTA FF [facility] Radiology Reports: +/- 30 days of [...] the Encounter. The data comes from all [place] treatment facilities. Date/Time Radiology Report Provider Source Sep 24, 2024 01:09 PM CHEST X-RAY, 2 VIE WS: MARIO MCLAUGHLIN [id number] -[id number] M Exm Date: SEP 24, 2024@13:09 Req Phys: JENNY KASPER Loc: PB-SATINDER PACT ECHO CHRIS (Req'g Lo Img Loc: PB-XRAY COLON Service: [place] [address] (Case [id number] COMPLETE) CHEST X-RAY, 2 VIEWS (RAD Detailed) CPT:23773 Reason for Study: chest pain Clinical History: Report Status: Verified Date Reported: SEP 24, 2024 Date Verified: SEP 24, 2024 Damage Inside Adjuster E-Sig: Report: EXAM: Chest x-ray PA and lateral views. Findings: There is atherosclerotic change involving the thoracic aorta. There is no pulmonary vascular congestion or pleural effusion. The lungs are free of acute infiltrate. The heart is normal in size. There is degenerative change involving the thoracic spine. There is mild obstructive lung disease. Impression: 1. No active disease in the chest. 2. Mild obstructive lung disease. 3. Chronic changes. Primary Interpreting Staff: Lenka Fritz M.D., Radiology (Damage Inside Adjuster, no e-sig) /LENKA LUIS [facility] Encounter Notes: All associated encounter notes This section contains the clinical notes associated to the Encounter. Date/Time Encounter Note(s) Provider Source Sep 24, 2024 07:13 AM CARDIOLOGY NOTE: LOCAL TITLE: CP EKG PB STANDARD TITLE: CARDIOLOGY NOTE DATE OF NOTE: SEP 24, 2024@07:13:51 ENTRY DATE: SEP 24, 2024@07:13:51 AUTHOR: CLINICAL,DEVICE PRO EXP COSIGNER: URGENCY: STATUS: COMPLETED PROCEDURE SUMMARY CODE: Machine Resulted DATE/TIME PERFORMED: SEP 20, 2024@08:39:5 DOCUMENT IN VISTA IMAGING SEE FULL REPORT IN VISTA IMAGING SIGNATURE NOT REQUIRED SEE SIGNATURE IN VISTA IMAGING (MUSE EKG POP) AUTO-INSTRUMENT DIAGNOSIS Procedure: [id number] 12 Lead ECG Release Status: Released Off-Line Verified Date Verified: Sep 24, 2024@07:13:50 60786.2 Ventricular Rate: 68 BPM 87099.3 Atrial Rate: 68 BPM 76860.4 P-R Interval: 208 ms 61668.5 QRS Duration: 96 ms 32593.6 Q-T Interval: 400 ms 63971 QTC Calculation(Bazett)425 ms 14417.12 Calculated P [place]: 55 degrees 89279.13 Calculated R [place]: -40 degrees 93369.14 Calculated T [place]: 29 degrees Normal sinus rhythm Left axis deviation Possible Lateral infarct (cited on or before 21-MAY-2012) Abnormal ECG When compared with ECG of 20-SEP-2024 08:38, No significant change was found Confirmed by VANDA MARTINEZ ([id number]) on 09/24/2024 7:13:44 AM Administrative Closure: 09/24/2024 by: CLINICAL,DEVICE PROXY SERVICE CLINICAL,DEVICE PROXY SERVICE [facility] Sep 20, 2024 08:48 AM NURSING PROGRESS N OTE: LOCAL TITLE: NURSING NOTE PB STANDARD TITLE: NURSING PROGRESS NOTE DATE OF NOTE: SEP 20, 2024@08:48 ENTRY DATE: SEP 20, 2024@08:48:57 AUTHOR: LUCERO JENSEN EXP COSIGNER: URGENCY: STATUS: COMPLETED NURSING NOTE PB Has ADDENDA Blood Pressure: 128/85 Pulse: 72 Temperature: 98.1 F (36.7 C) Pulse Oximetry: 97% Active Outpatient Medications: Active Outpatient Medications (including Supplies): Active Outpatient Medications Status === 1) ATORVASTATIN CALCIUM 20MG TAB TAKE ONE TABLET BY MOUTH EVERY ACTIVE EVENING Indication: FOR HIGH CHOLESTEROL 2) CETIRIZINE HCL 10MG TAB TAKE ONE TABLET BY MOUTH ONCE A DAY ACTIVE Indication: FOR ALLERGY SYMPTOMS 3) MONTELUKAST NA 10MG TAB TAKE ONE TABLET BY MOUTH EVERY ACTIVE EVENING 4) SILDENAFIL CITRATE 100MG TAB TAKE ONE TABLET BY MOUTH EVERY ACTIVE WEEK NEEDED FOR ERECTILE DYSFUNCTION (TAKE 60 MINUTES PRIOR TO SEXUAL ACTIVITY) - LIMIT 4 DOSES PER 30 DAYS 5) TAMSULOSIN HCL 0.4MG CAP TAKE ONE CAPSULE BY MOUTH EVERY ACTIVE EVENING APPROXIMATELY 30 MINUTES AFTER THE SAME MEAL EACH DAY (FOR PROSTATE) Active Non-VA Medications Status === 1) Non-VA CHOLECALCIF 50MCG (D3-2,000UNIT) TAB 50MCG BY MOUTH ACTIVE ONCE A DAY CC: reports to walk in clinic with reports of back pain radiating to chest. Subjective: reports over last couple of weeks he has had 3-4 episodes of pain that starts over left upper abdomen and flank area that radiates to chest. states that pain in chest is significant. States episodes usually last for 3-4 minutes and then subsides. Denies any contributing factors to when pain occurs such as exertion. Denies any dizziness, palpatations, shortness of breath, or edema. Denies any injury or trauma. O/A: is alert and oriented. Respirations are easy and non-labored with clear breath sounds throughout both lung lopez. Denies cough or dypsnea. Heart rate regular apically with no peripheral edema. Abdomen soft with normal bowel sounds. Denies nausea, vomiting, or tenderness on palpation. No pain at present time. Plan/ Intervention: Discussed with PACT PCP. EKG and Chest x-ray ordered. EKG done in clinic. X-ray machine not available today, ok to postpone. Huntley is to start taking baby ASA daily and schedule follow up appointment with PACT PCP. If any episodes of chest pain occur educated that he needs to be evaluated in ER. 72 hour self reporting information given with education. RTC: Follow up with PCP 10/04/24 as scheduled. Per A Directive 1605.06, wristband documentation: Patient wristband was removed and destroyed by (staff name) Lucero Jensen RN and placed in the designated Glocaled-It bin. /reyna/ LUCERO CARRIZALES, RN [facility] Signed: 09/20/2024 09:05 Receipt Acknowledged By: 09/20/2024 15:29 /reyna/ Jenny Kasper MD [facility] 09/20/2024 ADDENDUM STATUS: COMPLETED ECG done in clinic without any chest pain shows a normal sinus rhythm with a first-degree AV block ventricular rate of 67 he does have a leftward axis deviation no acute ST changes. /reyna/ Jenny Kasper MD [facility] Signed: 09/20/2024 15:30 LUCERO JENSEN [facility]
--- OUTSIDE RECORDS SUMMARY | 2024-10-04 09:30 | XMS_ITS | Encounter Summary ---
Author Name [facility] [place] Organization [facility] [place] Address [address] [place] [address] Care Team Providers Care Gis Geographer Name Role Phone JENNY KASPER Primary Care [...] PART A Jul 24, 2016 PART A [id number] [phone] LISSETTEMARIO PATIENT MEDICARE (WNR) MEDICARE (M) PART A Jul 24, 2016 PART A [id number] [phone] MARIO MCLAUGHLIN PATIENT Selected Encounter This section includes the information on record at [place] for the Encounter. Date/Time Encounter Type Encounter Description Reason Provider Source Oct 04, 2024 02:30 PM OFFICE O/P EST MOD 30 MIN PRIMARY CARE/MEDICINE ICD-10-CM R07.9 Chest pain, unspecified JENNY KASPER IHMike Encounter Template Text not used by [place] Assessments - Encounter Diagnoses This section includes the primary and secondary diagnoses documented for the Encounter. 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 This section includes future appointments and future orders which are active, pending or scheduled. Future Appointments This section includes appointments that were scheduled to occur 6 months from the date of the Encounter, up to a maximum of 20 appointments. The data comes from all [place] treatment facilities. Appointment Date/Time Appointment Type Appointme nt Facility Name Oct 19, 2024 08:15 AM AMBULATORY - MEDICINE [place] [facility] Dec 27, 2024 09:30 AM AMBULATORY - PSYCHIATRY [facility] Dec 27, 2024 09:31 AM AMBULATORY - PSYCHIATRY [facility] Dec 30, 2024 08:30 AM AMBULATORY - MEDICINE [facility] Jan 03, 2025 08:00 AM AMBULATORY - MEDICINE [facility] Jan 14, 2025 08:30 AM AMBULATORY - MEDICINE [facility] Jan 14, 2025 08:45 AM AMBULATORY - MEDICINE [facility] Jan 31, 2025 09:00 AM AMBULATORY - MEDICINE [facility] Feb 03, 2025 08:00 AM AMBULATORY - MEDICINE [facility] Feb 07, 2025 09:15 AM AMBULATORY - MEDICINE [place] [facility] Feb 09, 2025 03:30 PM AMBULATORY - MEDICINE [place] [facility] Feb 17, 2025 01:30 PM AMBULATORY - MEDICINE [facility] Feb 25, 2025 11:30 AM AMBULATORY - NONE [place] [facility] Mar 02, 2025 01:30 PM [facility]BUL[facility] Mar 03, 2025 11:30 AM AMBULATORY - MEDICINE [facility] Vital Signs: All taken on the encounter date This section contains inpatient and outpatient Vital Signs collected on the date of the Encounter. Date/Time Temperature Pulse Blood Pressure Respiratory Rate SP02 Pain Height Weight Body Mass Index Source Oct 04, 2024 02:27 PM 98 73 118/82 20 95 0 236 32 [facility] Social History: Smoking Status (Most current) and Tobacco Use (All prior to encounter date) This section includes the most current, and the historical, smoking and tobacco- related health factors from the [place] facility where the Encounter took place. Current Smoking Status This section includes the most current smoking, or tobacco-related health factor, from the [place] facility where the Encounter took place. Date/Time Current Smoking Status Comment Facil ity Jan 15, 2024 09:00 AM VA-TOBACCO FORMER USER [facility] Tobacco Use History This section includes a history of the smoking, or tobacco-related health factors, that were collected on or before the date of the Encounter. The data comes from the [place] facility where the Encounter took place. Date/Time Smoking Status/Tobacco Use Comment F acility Jan 15, 2024 09:00 AM VA-TOBACCO QUIT 15 YRS OR MORE [facility] Apr 30, 2022 01:00 PM VA-TOBACCO FORMER USER [facility] Apr 30, 2022 01:00 PM VA-TOBACCO QUIT 15 YRS OR MORE [facility] Mar 13, 2021 11:00 AM VA-TOBACCO FORMER USER [facility] Mar 13, 2021 11:00 AM VA-TOBACCO QUIT 15 YRS OR MORE [facility] Mar 24, 2018 11:33 AM QUIT TOBACCO >7 YEARS AGO [facility] Feb 11, 2018 02:19 PM QUIT TOBACCO >7 YEARS AGO [facility] Apr 07, 2008 09:34 AM QUIT TOBACCO >7 YEARS AGO [facility] Dec 23, 2007 03:21 PM QUIT TOBACCO >7 YEARS AGO [facility] Advance Directives: All historical and current Section Date Range: From patient's date of to the date document was created. This section includes ALL of a patient's completed or amended [place] Advance and Rescinded Directives. The entries below indicate that a directive exists for the patient, but an actual copy is not included with this document. The data comes from all [place] facilities. Date Advance Directives Provider Source Mar 17, 2017 ADVANCE DIRECTIVE [facility] Radiology Reports: +/- 30 days of [...] the Encounter. The data comes from all [place] treatment facilities. Date/Time Radiology Report Provider Source Sep 24, 2024 01:09 PM CHEST X-RAY, 2 VIE WS: MARIO MCLAUGHLIN MADELINE [id number] -[id number] M Exm Date: SEP 24, 2024@13:09 Req Phys: JENNY KASPER Pat Loc: PB-[facility] PACT ECHO [facility] (Req'g Lo Img Loc: PB-XRAY [place] Service: [place] [address] (Case [id number] COMPLETE) CHEST X-RAY, 2 VIEWS (RAD Detailed) CPT:52967 Reason for Study: chest pain Clinical History: Report Status: Verified Date Reported: SEP 24, 2024 Date Verified: SEP 24, 2024 Csw E-Sig: Report: EXAM: Chest x-ray PA and [...] Primary Interpreting Staff: Lenka Fritz M.D., Radiology (Csw, no e-sig) /LENKA LUIS [facility] Encounter Notes: All associated encounter notes This section contains the clinical notes associated to the Encounter. Date/Time Encounter Note(s) Provider Source November 08, 2024 09:45 AM ADDENDUM: LOCAL TITLE: Addendum STANDARD TITLE: ADDENDUM DATE OF NOTE: NOVEMBER 08, 2024@09:45:40 ENTRY DATE: NOVEMBER 08, 2024@09:45:41 AUTHOR: JENNY KASPER COSIGNER: URGENCY: STATUS: COMPLETED Notify patient that his nuclear stress test showed an old area of infarct at the RCA territory no new ischemic areas. No further workup needed at this time important to control risk factors with an aspirin a day cholesterol and blood pressure control. /es/ Jenny Kasper MD [facility] Signed: 11/08/2024 09:46 Receipt Acknowledged By: 11/10/2024 09:15 /es/ LILO BRANDT LPN [facility] --- Original Document --- 10/04/24 PRIMARY CARE CLINIC PROGRESS NOTE PB: CC: Back pain HPI: Patient reports about 3 weeks ago started having some heartburn which consisted of a raw throat and pain in his chest started taking some over-the- counter antiacids and then developed left-sided back pain that would radiate into his chest with significant squeeze type feeling lasting 3 to 5 minutes at a time. Not necessarily associated with activity. He was seen as a nurse visit on September 20, 2024 at that time had an ECG that did show normal sinus rhythm with a first-degree AV block ventricular rate of 67 he does have a leftward axis deviation no acute ST changes. Chest x-ray performed on 09/24/2024 was unremarkable. Patient reports he has had no further back chest pain or heartburn since he was last seen at his nurse visit he is no longer using the antiacid. In addition he was started on memantine by neurologist and reports not really noticing any improvement with that. The main thing he notices is he just cannot remember what he did the day before but if somebody will remind him then he will remember. Non-VA Primary Care Provider None Specialty Services ?neurologist [facility] urologist, Dr. 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 OVERSEAS STATIONS/DEPLOYMENTS: MAJOR ACCIDENTS OR INJURIES WHILE ON ACTIVE DUTY: no MST: no SURGICAL HX: Bilteral eyelids Problem List: 1) Depression 2) Elevated PSA 3) Primary erectile dysfunction 4) Insomnia 5) Memory loss 6) Lacunar infarction 7) COPD - Chronic Obstructive Pulmonary Disease ([facility] [id number]) 8) Carotid artery stenosis 9) Bilateral tinnitus 10) Sensorineural hearing loss of bilateral ears 11) Mild neurocognitive disorder 12) Allergic Rhinitis ([facility] [id number]) Active Outpatient Medications (including Supplies): Active Outpatient [...] 50MCG BY MOUTH ACTIVE ONCE A DAY 6 Total Medications OBJECTIVE: Vital Signs Temperature: 98 F [36.7 C] (10/04/2024 14:27) Respiratory Rate: 20 (10/04/2024 14:27) Pulse Rate: 73 (10/04/2024 14:27) Blood Pressure: 118/82 (10/04/2024 14:27) HT: 72.0 in [182.9 cm] (05/31/2024 13:06) WT: 236 lb [107.05 kg] (10/04/2024 14:) BMI: 32.1 95% (10/04/2024 14:) Physical Exam General: NAD noted, A&Ox3, pleasant, appears stated age HEENT: NCAT, TM's clear, nares and oropharynx clear Neck: Supple with normal active ROM, without any lymphadenopathy Heart: RRR, no murmur, clicks, or rub Resp: Lungs CTA bilaterally, respirations even and unlabored Abdomen: Soft, non-distended, non-tender Ext: No clubbing, cyanosis, edema or obvious deformity Neuro: Grossly intact Psych: Affect normal, answers questions appropriately throughout visit Assessment/Plan: 1) Chest pain/heartburn possible angina equivalent. Will set him up for an exercise stress test he has already taken 81 mg aspirin daily which instructed him to continue taking. 2) ischemic dementia-will add Aricept to his medicine regimen at this time and reassess at his next visit in December Follow-up: As scheduled s and/or as needed. Discussed with patient that in the event of community imaging / testing being ordered in the future, once the imaging / testing has been completed, please notify PACT of completion at outside facility if not called with results within 1 week by a [facility] PACT member; this is due to intermittent lapses in notification of imaging completion within CPRS. All questions answered; agrees to plan of care. Follow up as listed above, annually, and as needed. Keep all appointments. Medications Reconciled. See AVS given to Holman. Time spent 30 minutes. /reyna/ Jenny Kasper MD [facility] Signed: 10/04/2024 14:48 JENNY KASPER [facility] Oct 04, 2024 02:35 PM PRIMARY CARE NURSI NG NOTE: LOCAL TITLE: PRIMARY CARE NURSING PROGRESS NOTE (TEXT) NURSING P STANDARD TITLE: PRIMARY CARE NURSING NOTE DATE OF NOTE: OCT 04, 2024@14:35 ENTRY DATE: OCT 04, 2024@14:35:29 AUTHOR: HERMAN ORTEGA COSIGNER: URGENCY: STATUS: COMPLETED Established Patient MARIO MCLAUGHLIN IS A 74 YEAR OLD MALE BEING SEEN IN CLINIC OCT 04, 2024. = = REASON FOR VISIT: Here for follow up on complaint of radiating pain to back. Holman states he has had no further pain since stopping antacids on the advice of someone. he does voice concern that his memory is getting worse 'at a rapid pace'. States he cant recall what happened in the past 1-2 days but can his youth. When asked if he is cued as to some kind of incident from the day before if he can recall it and he said he can if he is reminded. Are you receiving care any where other than the [facility]? No HEALTH AND SURGICAL HISTORY: Does patient report using home oxygen? CURRENT ACTIVE MEDICATIONS FOR REVIEW: Allergies/ADRs (Tool #5) FACILITY ALLERGY/ADR -------- No Remote Allergy/ADR Data available for this patient [facility] No Known Allergies Med. Reconciliation (Tool #1) INCLUDED IN THIS LIST: Alphabetical list of active outpatient prescriptions dispensed from this [facility] (local) and dispensed from another [place] or [facility] facility (remote) as well as inpatient orders (local pending and active), local clinic medications, locally documented non-VA medications, and local prescriptions that have or been discontinued in the past 90 days. Non-VA Meds Last Documented On: Jan 09, 2023 NOTE The display of VA prescriptions dispensed from another [place] or [facility] facility (remote) is limited to active outpatient prescription entries matched to National Drug File at the originating site and may not include some items such as investigational drugs, compounds, etc. NOT INCLUDED IN THIS LIST: Medications self-entered by the patient into personal health records (i.e. [employer]) are NOT included in this list. Non-VA medications documented outside this [place], remote inpatient orders (regardless of status) and remote clinic medications are NOT included in this list. The patient and provider must always discuss medications the patient is taking, regardless of where the medication was dispensed or obtained. OUTPT ATORVASTATIN CALCIUM 20MG TAB (Status = Active) TAKE ONE TABLET BY MOUTH EVERY EVENING FOR HIGH CHOLESTEROL Rx# [id number] Last Released: 07/05/24 Qty/Days Supply: Rx Expiration Date: 01/15/25 Refills Remainin Indication: FOR HIGH CHOLESTEROL OUTPT CETIRIZINE HCL 10MG TAB (Status = Active) TAKE ONE TABLET BY MOUTH ONCE A DAY FOR ALLERGY SYMPTOMS Rx# [id number] Last Released: 08/19/24 Qty/Days Supply: Rx Expiration Date: 02/09/25 Refills Remainin Indication: FOR ALLERGY SYMPTOMS Non-VA CHOLECALCIF 50MCG (D3-2,000UNIT) TAB TAKE ONE TABLET BY MOUTH ONCE A DAY Medication prescribed by Non-VA provider OUTPT MEMANTINE HCL 10MG TAB (Status = ) TAKE ONE TABLET BY MOUTH EVERY MORNING AND TAKE ONE TABLET EVERY EVENING Rx# [id number] Last Released: 07/02/24 Qty/Days Supply: 180/ Rx Expiration Date: 07/18/24 Refills Remainin OUTPT MONTELUKAST NA 10MG TAB (Status = Active) TAKE ONE TABLET BY MOUTH EVERY EVENING Rx# [id number] Last Released: 07/12/24 Qty/Days Supply: 90 Rx Expiration Date: 03/27/25 Refills Remainin OUTPT SILDENAFIL CITRATE 100MG TAB (Status = Active) TAKE ONE TABLET BY MOUTH EVERY WEEK NEEDED FOR ERECTILE DYSFUNCTION (TAKE 60 MINUTES PRIOR TO SEXUAL ACTIVITY) - LIMIT 4 DOSES PER 30 DAYS Rx# [id number] Last Released: 08/02/24 Qty/Days Supply: Rx Expiration Date: 05/25/25 Refills Remainin OUTPT TAMSULOSIN HCL 0.4MG CAP (Status = Active) TAKE ONE CAPSULE BY MOUTH EVERY EVENING APPROXIMATELY 30 MINUTES AFTER THE SAME MEAL EACH DAY (FOR PROSTATE) Rx# [id number] Last Released: 09/13/24 Qty/Days Supply: Rx Expiration Date: 01/30/25 Refills Remainin SUPPLIES PHARMACY TERMS AND POSSIBLE PATIENT ACTIONS INPT = [place] inpatient order IV = [place] intravenous medication OUTPT = [place] outpatient prescription PHARMACY POSSIBLE PATIENT TERMS EXPLANATION ACTIONS -------- ---- ACTIVE A prescription that can be If you have refills, filled at the local [place] pharmacy. you may request a refill of this prescription from your [place] pharmacy. CLINIC A medication you received during If you have questions a visit to a [place] clinic or about this medication emergency department. contact your [place] healthcare team. DISCONTINUED A prescription your provider has Contact your [place] stopped. It is no longer healthcare team if you available to be sent to you or need more of this picked up at the [place] pharmacy medication. window. A prescription which is too old Contact your VA to fill. This does not refer to [...] the VA. Or, it may be an mcqg-yvt-bjvfyeh (OTC), herbal, dietary supplements or sample medication. [...] before this medication now. you run out. Medication list reviewed with Patient IS PATIENT TAKING ANY OVER THE COUNTER MEDICATIONS, SUCH VITAMINS OR HERBAL SUPPLEMENTS, INCLUDING ANY MEDICATIONS PRESCRIBED BY ANOTHER PHYSICIAN? Yes, List: Vitamin C 1000mg 2 tab daily / Vitamin D 2,000iu daily Does patient have any new allergies to report since last visit? VITALS: TEMPERATURE: 98 F [36.7 C] (10/04/2024 14:27) BP: 118/82 (10/04/2024 14:27) RESP: 20 (10/04/2024 14:27) PULSE: 73 (10/04/2024 14:) HT: 72.0 in [182.9 cm] (05/31/2024 13:06) WT: 236 lb [107.05 kg] (10/04/2024 14:27) BMI: 32.1 PAIN ASSESSMENT: (Most Recent Pain Score in Vitals Package: 0 (10/04/2024 14:27) ) The patient indicated that they and [...] chickenpox, or zoster in last 30 days. STRESS: Thank you for your service. Now let us serve you. At the [facility], we strive to provide you with exceptional [...] Not At All SPIRITUAL ASSESSMENT: Are there advent practices or spiritual concerns you want the information security analyst, your physician, and other health care team members to immediately know about? Patient advised to call the clinic for any concerns, questions, or symptoms. Patient and/or caregiver verbalized understanding of plan of care. Pain Assessment: - PAIN ASSESSMENT: .. Patient reports no pain at this visit. Pain Score = 0. Patient's self identified pain goal: 0 Patient/Nurse Interview: * * Patient states that questions were answered in a way that was easily understood. /reyna/ HERMAN ORTEGA LPN Signed: 10/04/2024 14:39 HERMAN ORTEGA [facility] Oct 04, 2024 02:26 PM PRIMARY CARE PROGR ESS NOTE: LOCAL TITLE: PRIMARY CARE CLINIC PROGRESS NOTE PB STANDARD TITLE: PRIMARY CARE PROGRESS NOTE DATE OF NOTE: OCT 04, 2024@14:26 ENTRY DATE: OCT 04, 2024@14:26:49 AUTHOR: JENNY KASPER COSIGNER: URGENCY: STATUS: COMPLETED PRIMARY CARE CLINIC PROGRESS NOTE PB Has ADDENDA CC: Back pain HPI: Patient reports about 3 weeks ago started having some heartburn which consisted of a raw throat and pain in his chest started taking some over-the- counter antiacids and then developed left-sided back pain that would radiate into his chest with significant squeeze type feeling lasting 3 to 5 minutes at a time. Not necessarily associated with activity. He was seen as a nurse visit on September 20, 2024 at that time had an ECG that did show normal sinus rhythm with a first-degree AV block ventricular rate of 67 he does have a leftward axis deviation no acute ST changes. Chest x-ray performed on 09/24/2024 was unremarkable. Patient reports he has had no further back chest pain or heartburn since he was last seen at his nurse visit he is no longer using the antiacid. In addition he was started on memantine by neurologist and reports not really noticing any improvement with that. The main thing he notices is he just cannot remember what he did the day before but if somebody will remind him then he will remember. Non-VA Primary Care Provider None Specialty Services ?neurologist [place] urologist, Dr. Grimm FAMILY HX: Mother is , age - 90 Father is , age - 81 Brother x2- prostate cancer SOCIAL HX: MARITAL STATUS: lives with SO WORK HX: work at [employer] HOBBIES: deer and [employer] TOBACCO: quit 1983; 20pyh ALCOHOL: sober 1980 DRUGS: no HX: BRANCH: [address] 1967-. 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 OVERSEAS STATIONS/DEPLOYMENTS: MAJOR ACCIDENTS OR INJURIES WHILE ON ACTIVE DUTY: no MST: no SURGICAL HX: Bilteral eyelids Problem List: 1) Depression 2) Elevated PSA 3) Primary erectile dysfunction 4) Insomnia 5) Memory loss 6) Lacunar infarction 7) COPD - Chronic Obstructive Pulmonary Disease ([facility] [id number]) 8) Carotid artery stenosis 9) Bilateral tinnitus 10) Sensorineural hearing loss of bilateral ears 11) Mild neurocognitive disorder 12) Allergic Rhinitis ([facility] [id number]) Active Outpatient Medications (including Supplies): Active Outpatient [...] 50MCG BY MOUTH ACTIVE ONCE A DAY 6 Total Medications OBJECTIVE: Vital Signs Temperature: 98 F [36.7 C] (10/04/2024 14:27) Respiratory Rate: 20 (10/04/2024 14:27) Pulse Rate: 73 (10/04/2024 14:27) Blood Pressure: 118/82 (10/04/2024 14:27) HT: 72.0 in [182.9 cm] (05/31/2024 13:06) WT: 236 lb [107.05 kg] (10/04/2024 14:27) BMI: 32.1 95% (10/04/2024 14:27) Physical Exam General: NAD noted, A&Ox3, pleasant, appears stated age HEENT: NCAT, TM's clear, nares and oropharynx clear Neck: Supple with normal active ROM, without any lymphadenopathy Heart: RRR, no murmur, clicks, or rub Resp: Lungs CTA bilaterally, respirations even and unlabored Abdomen: Soft, non-distended, non-tender Ext: No clubbing, cyanosis, edema or obvious deformity Neuro: Grossly intact Psych: Affect normal, answers questions appropriately throughout visit Assessment/Plan: 1) Chest pain/heartburn possible angina equivalent. Will set him up for an exercise stress test he has already taken 81 mg aspirin daily which instructed him to continue taking. 2) ischemic dementia-will add Aricept to his medicine regimen at this time and reassess at his next visit in December Follow-up: As scheduled s and/or as needed. Discussed with patient that in the event of community imaging / testing being ordered in the future, once the imaging / testing has been completed, please notify PACT of completion at outside facility if not called with results within 1 week by a [facility] PACT member; this is due to intermittent lapses in notification of imaging completion within CPRS. All questions answered; agrees to plan of care. Follow up as listed above, annually, and as needed. Keep all appointments. Medications Reconciled. See AVS given to . Time spent 30 minutes. /reyna/ Jenny Kasper MD [facility] Signed: 10/04/2024 14:48 11/08/2024 ADDENDUM STATUS: COMPLETED Notify patient that his nuclear stress test showed an old area of infarct at the RCA territory no new ischemic areas. No further workup needed at this time important to control risk factors with an aspirin a day cholesterol and blood pressure control. /reyna/ Jenny Kasper MD [facility] Signed: 11/08/2024 09:46 Receipt Acknowledged By: 11/10/2024 09:15 /es/ LILO BRANDT LPN [facility] 11/10/2024 ADDENDUM STATUS: COMPLETED Called and advised of the following: Notify patient that his nuclear stress test showed an old area of infarct at the RCA territory no new ischemic areas. No further workup needed at this time important to control risk factors with an aspirin a day cholesterol and blood pressure control. /reyna/ Jenny Kasper MD [facility] Primary Care Signed: 11/08/2024 09:46 Holman voiced understanding of all. No questions. /reyna/ LILO BRANDT LPN [facility] Signed: 11/10/2024 09:19 JENNY KASPER [facility]
--- OUTSIDE RECORDS SUMMARY | 2024-12-27 03:30 | XMS_ITS | Encounter Summary ---
Author Name Department of Vetera Affairs ([place]) Organization Department of Vetera [facility] ([place]) Address [address] [place] [address] Care Team Providers Care Remote Sensing Technician Name Role Phone ILIANA GOODEN Primary Care [...] PART A Jul 24, 2016 PART A [id number] LISSETTEMARIO PATIENT MEDICARE (WNR) MEDICARE (M) PART A Jul 24, 2016 PART A [id number] MARIO MCLAUGHLIN PATIENT Selected Encounter This section includes the information on record at [place] for the Encounter. Date/Time Encounter Type Encounter Description Reason Pro vider Source Dec 27, 2024 08:30 AM Outpatient Encounter PRIMARY CARE/MEDICINE IHE Encounter Template Text not used by [facility] Plan of Treatment: Future Appointments (+ 6 months) and Future Tests (+/- 45 days) The Plan of Treatment section includes future care activities for the patient from all [place] [facility] This section includes future appointments and future orders which are active, pending or scheduled. Future Appointments This section includes appointments that were scheduled to occur 6 months from the date of the Encounter, up to a maximum of 20 appointments. The data comes from all [facility]. Appointment Date/Time Appointment Type Appointme nt Facility Name Dec 30, 2024 08:30 AM AMBULATORY - MEDICINE [facility] Jan 03, 2025 08:00 AM AMBULATORY - MEDICINE [facility] Jan 14, 2025 08:30 AM AMBULATORY - MEDICINE [facility] Jan 14, 2025 08:45 AM AMBULATORY - MEDICINE [facility] Jan 31, 2025 09:00 AM AMBULATORY - MEDICINE [facility] Feb 03, 2025 08:00 AM AMBULATORY - MEDICINE [facility] Feb 07, 2025 09:15 AM AMBULATORY - MEDICINE [facility] Feb 09, 2025 03:30 PM AM[place]UL[place]ORY [place]ICINE [place] [facility] Feb 17, 2025 01:30 PM AMBULATORY - MEDICINE [facility] Feb 25, 2025 11:30 AM AMBULATORY - NONE [place] [facility] Mar 02, 2025 01:30 PM AMBUL[facility]ORY - MEDICINE [place] [facility] Mar 03, 2025 11:30 AM AMBULATORY - MEDICINE [place] [facility] Active, Pending, and Scheduled Orders This section includes a listing of several types of active, pending, and scheduled orders, including clinic medications orders, diagnostic test orders, procedure orders and consult orders; where the start date of the order is 45 days before the date of the Encounter or 45 days after the date of theEncounter. The data comes from all [facility]. Test Date/Time Test Type Test Details Facility Name Dec 27, 2024 01:54 PM Consult Order COMM[facility]ITY CARE-NEUROLOGY [id number] Cons Trench Pipe Layer's Choice [place] [facility] Dec 30, 2024 12:00 AM Laboratory - Chemi stry Order POC UA (STL-PB-MA) URINE SP [facility] Jan 03, 2025 12:36 PM Consult Order COMMUNITY CARE-OPTOMETRY ROUTINE [id number] Cons Trench Pipe [facility] Jan 28, 2025 12:34 PM Consult Order COMM[facility]ITY CARE-GI GENERAL [id number] Cons Trench Pipe [facility]'s Choice [facility] Lab Results: +/- 30 days of the encounter This section includes the Chemistry and Hematology Lab Results on record with [place] for the patient. Radiology Reports and Pathology Reports are provided separately, in subsequent sections. Lab Results This section contains the Chemistry/Hematology Results that were resulted 30 days before or 30 daysafter the date of the Encounter. Date/Time Source Result Type Result - Unit Interpretation Reference Range Specimen Type Comment Jan 14, 2025 09:01 AM [facility] LWSRHITVA-ASYXV-7,3-GALACTOSE IGE SERUM Speci men Type: SERUM Comment: REFERENCE RANGE: <0.10 kU/L Results above 0.1 kU/L indicate an allergen-specific IgE sensitization to truzuqrtw-v-9,3-g alactose, and such patients are at risk for delayed allergic reactions following beef, pork, or sahu consumption. Circulating IgE antibodies may remain undetectable despite a convincing clinical history because these antibodies may be directed towards allergens revealed or altered during industrial processing, cooking, or digestion and therefore do not exist in the original food for which the patient is tested. Sometimes individuals diagnosed with chronic urticaria may develop IgE antibodies directed against human thyroglobulin. Such antibodies may cross-react with the bovine thyroglobulin used in ImmunoCAP(R) Allergen o215, alpha-Gal, leading to a false-positive test result. A definitive diagnosis should be based on the evaluation of both clinical and laboratory findings and not on any single diagnostic method. Additional information can be found at http://www..[employer] .A & A Custom Cornhole Test performed by [facility] [address] [place] [address] Manager Adobe: Atiya Marie MD,PHD,CY Test Reported by [facility], [facility] [place], [id number] [place] [address] Edi Bansal M.D., Ph.D., Director of Laboratories , [place] [id number] Ordering Provider: LUPE FRANKS III Report Released Date/Time: Jan 14, 2025 08:46 AM Reporting Lab: [place] [facility] [address] [address] Performing Lab: [place] [facility] [address] [facility] GGKRAZQHH-ANHBY-0,3-GALACTOSE IGE <0.10 kU/L SEE BELOW Jan 14, 2025 09:01 AM [facility] CB COMPREHENSIVE METABOLIC PANEL PLASMA Specimen Type: PLASMA No comment entered. Ordering Provider: LUPE FRANKS III Report Released Date/Time: Jan 14, 2025 08:46 AM Reporting Lab: [place] [facility] [address] [place] [address] Performing Lab: [place] [facility] [address] [place] [address] CREATININE 1.04 mg/dL 0.7-1.3 UREA NITROGEN 18 mg/dL 9-25 GLUCOSE 99 mg/dL 72-99 SODIUM 143 meq/L 136-145 POTASSIUM 3.3 meq/L L 3.5-5 CHLORIDE 108 meq/L H 98-107 CARBON DIOXIDE 24 meq/L 22-31 CALCIUM 8.9 mg/dL 8.4-10.4 PROTEIN 6.7 g/dL 6-8.6 ALBUMIN 4.1 g/dL 3.4-5 TOTAL BILIRUBIN 0.9 mg/dL 0.2-1.2 ALKALINE PHOSPHATASE 115 U/L 40-150 AST/SGOT 22 U/L 5-34 ALT/SGPT 23 U/L 8-40 EGFR (CKD-EPI 2020) 76 Jan 14, 2025 09:01 AM [facility] CBC BLOOD Specimen Type: BLOOD No comment entered. Ordering Provider: LUPE FRANKS III Report Released Date/Time: Jan 14, 2025 08:46 AM Reporting Lab: [place] [facility] [address] [address] Performing Lab: [place] [facility] [address] [place] [address] WBC 5.7 10*3/uL 3.6-11.2 RBC 5.00 10*6/uL 4.10-5.70 HGB 13.9 g/dL 13.1-16.8 HCT 41.8 38.2-48.4 MCV 83.6 fL 80.0-100.0 MCH 27.8 pg 27.0-34.0 MCHC 33.3 g/dL 33.0-36.0 PLT 186 10*3/uL 150-400 MPV 10.0 fL 7.5-11.2 RDW 13.2 11.8-15.1 LYMPHOCYTES, AUTO % 25.7 MONOCYTES, AUTO % 12.6 NEUTROPHILS, AUTO % 60.3 EOSINOPHILS, AUTO % 0.9 BASOPHILS, AUTO % 0.3 LYMPHOCYTES, ABSOLUTE 1.47 10*3/uL 0.77- 4.50 MONOCYTES, ABSOLUTE 0.72 10*3/uL 0.19-0. 8 NEUTROPHILS, ABSOLUTE 3.46 10*3/uL 2.10- 8.00 EOSINOPHILS, ABSOLUTE 0.05 10*3/uL 0.00- 0.60 BASOPHILS, ABSOLUTE 0.02 10*3/uL 0.00-0. 20 IMMATURE GRANS, AUTO % 0.2 IMMATURE GRANS, AUTO ABS 0.01 10*3/uL 0. 00-0.05 Jan 03, 2025 02:29 PM [facility] OVA & PARASITE, STOOL (PB) FECES Specimen Typ e: FECES Comment: OVA AND PARASITES, CONCENTRATE AND PERMANENT SMEAR EXAMINATION FOR OVA AND PARASITES SOURCE : [id number] RESULT/COMMENT: It is controversial whether identification of Blastocystis in the stool requires treatment. In a symptomatic patient, isolation of cysts in stool specimens should trigger a thorough evaluation for other causes of the patient's gastrointestinal tract complaints, given the possibility for co-infection with other pathogens. 1. Few Blastocystis hominis Reference Range: No Ova and Parasites seen Routine Ova and Parasite Exam may not detect some parasites that occasionally cause diarrheal illness. Cryptosporidium Antigen and/or Cyclospora and Isospora Exam may be ordered to detect these parasites. One negative sample does not necessarily rule out the presence of a parasitic infection. Assay performed by wet mount after concentration. PARASITE EXAM, TRICHROME STAIN For additional information, please refer to https://education.Seriosity/faq/EKC012 (This link is being provided for informational/ educational purposes only.) Test Performed by [facility], [employer] [facility], [address] [place] [address] Edi Bansal M.D., Ph.D., Director of Laboratories , CLIA [id number] Ordering Provider: ILIANA GOODEN Report Released Date/Time: Jan 03, 2025 09:00 AM Reporting Lab: [place] [facility] [address] [place] [address] Performing Lab: [place] [facility] [address] [facility] OVA & PARASITE, STOOL (PB) comment Jan 03, 2025 02:29 PM [facility] C DIFF EPI PCR PNL FECES Specimen Type: FECES Comment: OVA AND PARASITES, CONCENTRATE AND PERMANENT SMEAR EXAMINATION FOR OVA AND PARASITES SOURCE : [id number] RESULT/COMMENT: It is controversial whether identification of Blastocystis in the stool requires treatment. In a symptomatic patient, isolation of cysts in stool specimens should trigger a thorough evaluation for other causes of the patient's gastrointestinal tract complaints, given the possibility for co-infection with other pathogens. 1. Few Blastocystis hominis Reference Range: No Ova and Parasites seen Routine Ova and Parasite Exam may not detect some parasites that occasionally cause diarrheal illness. Cryptosporidium Antigen and/or Cyclospora and Isospora Exam may be ordered to detect these parasites. One negative sample does not necessarily rule out the presence of a parasitic infection. Assay performed by wet mount after concentration. PARASITE EXAM, TRICHROME STAIN For additional information, please refer to https://education.Flyezee.com.A & A Custom Cornhole/faq/SBK875 (This link is being provided for informational/ educational purposes only.) Test Performed by [facility], [facility], [address] [place], [place] Edi Bansal M.D., Ph.D., Director of Laboratories , CLIA [id number] Ordering Provider: ILIANA GOODEN Report Released Date/Time: Jan 03, 2025 09:00 AM Reporting Lab: [place] [facility] [address] [facility] [address] Performing Lab: [place] [facility] [address] [facility] [address] [id number] STRAIN OF C.DIFF Presumptive Negativ e Presumptive Negative C DIFF EPI PCR Negative Negative Jan 03, 2025 02:29 PM [facility] FECAL LEUKOCYTES (PB) FECES Specimen Type: FE NICHOLAS Comment: OVA AND PARASITES, CONCENTRATE AND PERMANENT SMEAR EXAMINATION FOR OVA AND PARASITES SOURCE : [id number] RESULT/COMMENT: It is controversial whether identification of Blastocystis in the stool requires treatment. In a symptomatic patient, isolation of cysts in stool specimens should trigger a thorough evaluation for other causes of the patient's gastrointestinal tract complaints, given the possibility for co-infection with other pathogens. 1. Few Blastocystis hominis Reference Range: No Ova and Parasites seen Routine Ova and Parasite Exam may not detect some parasites that occasionally cause diarrheal illness. Cryptosporidium Antigen and/or Cyclospora and Isospora Exam may be ordered to detect these parasites. One negative sample does not necessarily rule out the presence of a parasitic infection. Assay performed by wet mount after concentration. PARASITE EXAM, TRICHROME STAIN For additional information, please refer to https://education.Flyezee.com.A & A Custom Cornhole/faq/COX772 (This link is being provided for informational/ educational purposes only.) Test Performed by [facility], [employer] [facility], [address] [place] [address] Edi Bansal M.D., Ph.D., Director of Laboratories , [facility] [id number] Ordering Provider: ILIANA GOODEN Report Released Date/Time: Jan 03, 2025 09:00 AM Reporting Lab: [place] [facility] [address] [facility] [address] Performing Lab: [place] [facility] [address] [facility] [address] FECAL LEUKOCYTES (PB) POSITIVE Dec 30, 2024 09:46 AM [facility] POC UA (STL-PB-MA) URINE Specimen Type: URINE No comment entered. Ordering Provider: ILIANA GOODEN Report Released Date/Time: Dec 30, 2024 09:53 AM Reporting Lab: [facility] [address] [facility] [address] Performing Lab: [facility] [address] [facility] [address] [facility] [address] PROTEIN POC UA 30 mg/dL Negative BLOOD POC UA Negative Negative LEUKOCYTES POC UA Negative Negative COLOR POC UA Mary YELLOW SPEC GRAV POC UA >=1.030 1.005-1.030 UROBILINOGEN POC UA 1.0 {Surendra'U}/dL 0 .1-1.0 BILIRUBIN POC UA Negative Negative KETONES POC UA Trace mg/dL Negative GLUCOSE POC UA Negative mg/dL Negative pH POC UA 6.0 5.0-8.0 NITRITE POC UA Negative Negative CLARITY POC UA Clear CLEAR Vital Signs: All taken on the encounter date This section contains inpatient and outpatient Vital Signs collected on the date of the Encounter. Date/Time Temperature Pulse Blood Pressure Respiratory Rate SP02 Pain Height Weight Body Mass Index Source Dec 27, 2024 11:03 AM 142/74 mm[Hg] [facility] Dec 27, 2024 10:45 AM 97.3 F 50 /min 155/87 mm[Hg] 20 /min 97 % 0 235.9 lb 32 [facility] Social History: Smoking Status (Most current) and Tobacco Use (All prior to encounter date) This section includes the most current, and the historical, smoking and tobacco- related health factors from the [place] facility where the Encounter took place. Current Smoking Status This section includes the most current smoking, or tobacco-related health factor, from the AL facility where the Encounter took place. Date/Time Current Smoking Status Comment Facil ity Jan 15, 2024 09:00 AM AL-TOBACCO FORMER USER [facility] Tobacco Use History This section includes a history of the smoking, or tobacco-related health factors, that were collected on or before the date of the Encounter. The data comes from the [place] facility where the Encounter took place. Date/Time Smoking Status/Tobacco Use Comment F acility Jan 15, 2024 09:00 AM VA-TOBACCO QUIT 15 YRS OR MORE [facility] Apr 30, 2022 01:00 PM VA-TOBACCO FORMER USER [facility] Apr 30, 2022 01:00 PM VA-TOBACCO QUIT 15 YRS OR MORE [facility] Mar 13, 2021 11:00 AM VA-TOBACCO FORMER USER [facility] Mar 13, 2021 11:00 AM VA-TOBACCO QUIT 15 YRS OR MORE [facility] Mar 24, 2018 11:33 AM QUIT TOBACCO >7 YEARS AGO [facility] Feb 11, 2018 02:19 PM QUIT TOBACCO >7 YEARS AGO [facility] Apr 07, 2008 09:34 AM QUIT TOBACCO >7 YEARS AGO [facility] Dec 23, 2007 03:21 PM QUIT TOBACCO >7 YEARS AGO [facility] Advance Directives: All historical and current Section Date Range: From patient's date of to the date document was created. This section includes ALL of a patient's completed or amended [facility] Advance and Rescinded Directives. The entries below indicate that a directive exists for the patient, but an actual copy is not included with this document. The data comes from all [place] facilities. Date Advance Directives Provider Source Mar 17, 2017 ADVANCE DIRECTIVE SEJAL ACOSTA [facility] Radiology Reports: +/- 30 days of [...] the Encounter. The data comes from all [place] treatment facilities. Date/Time Radiology Report Provider Source Jan 14, 2025 08:48 AM OBSTRUCTIVE SERIES : MARIO MCLAUGHLIN MADELINE [id number] -1950 M Exm Date: JAN 14, 2025@08:48 Req Phys: LUPE FRANKS E III Pat Loc: PB-SATINDER PACT ECHO CHRIS (Req'g Lo Img Loc: PB-XRAY [place] Service: [place] [address] (Case [id number] COMPLETE) OBSTRUCTIVE SERIES (RAD Detailed) CPT:02313 Reason for Study: diarrhea Clinical History: diarrhea x 4 weeks Report Status: Verified Date Reported: JAN 14, 2025 Date Verified: JAN 14, 2025 Environmental Services Worker E-Sig: Report: Multiple views of the abdomen and a single PA view of the chest reveal mild degenerative skeletal change with no acute osseous abnormality. The bowel pattern is nonspecific, and without evidence of bowel obstruction. There is no appreciable ascites or pneumoperitoneum. There is no identified urinary tract stone. There is no infiltrate, effusion or other acute intrathoracic process. Heart size is normal. Impression: No acute process Primary Interpreting Staff: TARIQ PIERSON RADIOLOGIST (Environmental Services Worker, no e-sig) /TARIQ Crawford [facility] Pathology Reports: +/- 30 days of the encounter Pathology Reports For cases when an order for pathology services may have been completed prior to the date of the Encounter, the report list includes the Pathology Reports that were completed up to 30 days before dateof the Encounter. For cases when an order for pathology services may have been completed after the date of the Encounter, the report list also includes the Pathology Reports that were completed up to30 days after date of the Encounter. The data comes from all [place] treatment facilities. Date/Time Pathology Report Provider Source Jan 03, 2025 02:29 PM LR MICROBIOLOGY RE PORT: Accession [UID]: [id number] [[id number]] Received: Jan 03, 2025@14:29 Collection sample: STOOL Collection date: Jan 03, 2025 14:29 Site/Specimen: FECES Provider: ILIANA GOODEN Test(s) ordered: C&S STOOL..................... completed: Jan 08, 2025 10:27 * BACTERIOLOGY FINAL REPORT => Jan 08, 2025 11:12 TECH CODE: [id number] Bacteriology Remark(s): 01/06/25 MANJULA Culture shows LIGHT GROWTH NORMAL ENTERIC VIKKI. There will be no work up. 01/07/25 MANJULA CULTURE IN PROGRESS. 01/08/25 RS NO Aeromonas, Campylobacter, E.coli 0157, Plesiomonas, Salmonella, Shigella, or Yersinia isolated. CULTURE GREW USUAL ENTERIC VIKKI- NO ENTERIC PATHOGENS ISOLATED. CULTURE COMPLETE. =--=--=--=--=--=--=--=--=--=--= --=--=--=--=--=--=--=--=--=--=- -=--=--=--=--=-- Performing Laboratory: Bacteriology Report Performed By: [facility] CLIA# [id number] [address] [facility] [address] [place] [address] LISA GARCIA [facility]
--- OUTSIDE RECORDS SUMMARY | 2024-12-27 04:31 | XMS_ITS | Encounter Summary ---
Author Name [facility] Organization [facility] Address [address] [place] [address] Care Team Providers Care Collar Closer Lockstitch Name Role Phone ILIANA GOODEN Primary Care [...] PART A Jul 24, 2016 PART A [id number] [phone] LISSETTEMARIO PATIENT MEDICARE (WNR) MEDICARE (M) PART A Jul 24, 2016 PART A [id number] [phone] MARIO MCLAUGHLIN PATIENT Selected Encounter This section includes the information on record at [place] for the Encounter. Date/Time Encounter Type Encounter Description Reason Provider Source Dec 27, 2024 09:31 AM [facility] FACILITY FEE PCMHI INDIV ICD-10-CM F41.9 Anxiety disorder, unspecified RENETTA CARLIN I[facility]ike Encounter Template Text not used by [facility] Assessments - Encounter Diagnoses This section includes the primary and secondary diagnoses documented for the Encounter. Date/Time Primary/Secondary Diagnosis Diagnosis Name Provider Source Dec 28, 2024 12:54 PM PRIMARY Anxiety disorder, unspecified NIGEL,SHERI Y Raymond [facility] Plan of Treatment: Future Appointments (+ 6 months) and Future Tests (+/- 45 days) The Plan of Treatment section includes future care activities for the patient from all [facility]. This section includes future appointments and future orders which are active, pending or scheduled. Future Appointments This section includes appointments that were scheduled to occur 6 months from the date of the Encounter, up to a maximum of 20 appointments. The data comes from all [facility]. Appointment Date/Time Appointment Type Appointme nt Facility Name Dec 30, 2024 08:30 AM AMBULATORY - MEDICINE [facility] Jan 03, 2025 08:00 AM AMBULATORY - MEDICINE [facility] Jan 14, 2025 08:30 AM AMBULATORY - MEDICINE [facility] Jan 14, 2025 08:45 AM AMBULATORY - MEDICINE [facility] Jan 31, 2025 09:00 AM AMBULATORY - MEDICINE [facility] Feb 03, 2025 08:00 AM AMBULATORY - MEDICINE [facility] Feb 07, 2025 09:15 AM AMBULATORY - MEDICINE [facility] Feb 09, 2025 03:30 PM [place] [place]IC[place] [facility] Feb 17, 2025 01:30 PM AMBULATORY - MEDICINE [facility] Feb 25, 2025 11:30 AM AMBULATORY - NONE [place] [facility] Mar 02, 2025 01:30 PM AM[facility] - [place]IC[place] [facility] Mar 03, 2025 11:30 AM [facility] - MEDICINE [place] [facility] Active, Pending, and Scheduled Orders This section includes a listing of several types of active, pending, and scheduled orders, including clinic medications orders, diagnostic test orders, procedure orders and consult orders; where the start date of the order is 45 days before the date of the Encounter or 45 days after the date of theEncounter. The data comes from all [facility]. Test Date/Time Test Type Test Details Facility Name Dec 27, 2024 01:54 PM Consult Order [facility]-NEUROLOGY [id number] Cons Flat Lock Operator's Choice [place] [facility] Dec 30, 2024 12:00 AM Laboratory - Chemi stry Order POC UA (STL-PB-MA) URINE SP [facility] Jan 03, 2025 12:36 PM Consult Order [facility]-OPTOMETRY ROUTINE [id number] Cons Flat Lock Operator's [facility] Jan 28, 2025 12:34 PM Consult Order [facility]-GI GENERAL [id number] Cons Flat Lock Operator's [facility] Lab Results: +/- 30 days of the encounter This section includes the Chemistry and Hematology Lab Results on record with [place] for the patient. Radiology Reports and Pathology Reports are provided separately, in subsequent sections. Lab Results This section contains the Chemistry/Hematology Results that were resulted 30 days before or 30 daysafter the date of the Encounter. Date/Time Source Result Type Result - Unit Interpretation Reference Range Specimen Type Comment Jan 14, 2025 09:01 AM [facility] CB KQJFBCWQT-IQSVI-3,3-GALACTOSE IGE SERUM Speci men Type: SERUM Comment: REFERENCE RANGE: <0.10 kU/L Results above 0.1 kU/L indicate an allergen-specific IgE sensitization to zwrosjjlw-m-2,3-g alactose, and such patients are at risk [...] method. Additional information can be found at [email or web address] .[employer] Test performed by [employer] [address] [place] [address] Lining Cutter: Atiya Marie MD,PHD,CY Test Reported by [employer], [employer], [address] [place], [place] Edi Bansal M.D., Ph.D., Director of Laboratories , JENNIFER [id number] Ordering Provider: LUPE FRANKS III Report Released Date/Time: Jan 14, 2025 08:46 AM Reporting Lab: [place] [facility] [address] [place] [address] Performing Lab: [place] [facility] [address] [facility] [id number]-QMWMK-0,3-GALACTOSE IGE <0.10 kU/L SEE BELOW Jan 14, 2025 09:01 AM [facility] COMPREHENSIVE METABOLIC PANEL PLASMA Specimen Type: PLASMA No comment entered. Ordering Provider: LUPE FRANKS III Report Released Date/Time: Jan 14, 2025 08:46 AM Reporting Lab: [place] [facility] [address] [place] [address] Performing Lab: [place] [facility] [address] [place] [address] CREATININE 1.04 mg/dL 0.7-1.3 UREA NITROGEN 18 [...] 2020) 76 Jan 14, 2025 09:01 AM [facility] CBC BLOOD Specimen Type: BLOOD No comment entered. Ordering Provider: LUPE FRANKS III Report Released Date/Time: Jan 14, 2025 08:46 AM Reporting Lab: [place] [facility] [address] [place] [address] Performing Lab: [place] [facility] [address] [place] [address] WBC 5.7 10*3/uL 3.6-11.2 RBC 5.00 10*6/uL [...] 0. 00-0.05 Jan 03, 2025 02:29 PM [facility] OVA & PARASITE, STOOL (PB) FECES Specimen Typ e: FECES Comment: OVA AND PARASITES, CONCENTRATE AND PERMANENT SMEAR EXAMINATION FOR OVA AND PARASITES SOURCE : [id number] RESULT/COMMENT: It is controversial whether identification of [...] STAIN For additional information, please refer to https://[employer] ([employer]).Gongpingjia/faq/TTO028 (This link is being provided for informational/ educational purposes only.) Test Performed by [employer], [employer], [address] [place] [address] Edi Bansal M.D., Ph.D., Director of Laboratories , [facility] [id number] Ordering Provider: ILIANA GOODEN Report Released Date/Time: Jan 03, 2025 09:00 AM Reporting Lab: [place] [facility] [address] [facility] [address] Performing Lab: [facility] [address] [facility] OVA & PARASITE, STOOL (PB) comment Jan 03, 2025 02:29 PM [facility] C DIFF EPI PCR PNL FECES Specimen Type: FECES Comment: OVA AND PARASITES, CONCENTRATE AND PERMANENT SMEAR EXAMINATION FOR OVA AND PARASITES SOURCE : [id number] RESULT/COMMENT: It is controversial whether identification of [...] STAIN For additional information, please refer to https://[employer] ([employer]).Gongpingjia/faq/DFI285 (This link is being provided for informational/ educational purposes only.) Test Performed by [employer], [address] [place], [place] Edi Bansal M.D., Ph.D., Director of Laboratories , CLIA [id number] Ordering Provider: ILIANA GOODEN Report Released Date/Time: Jan 03, 2025 09:00 AM Reporting Lab: [facility] [address] [place] [facility] [address] Performing Lab: [place] [facility] [address] [facility] [address] [id number] STRAIN OF C.DIFF Presumptive Negativ e Presumptive Negative C DIFF EPI PCR Negative Negative Jan 03, 2025 02:29 PM [facility] FECAL LEUKOCYTES (PB) FECES Specimen Type: FE NICHOLAS Comment: OVA AND PARASITES, CONCENTRATE AND PERMANENT SMEAR EXAMINATION FOR OVA AND PARASITES SOURCE : [id number] RESULT/COMMENT: It is controversial whether identification of [...] STAIN For additional information, please refer to https://education.[facility].[employer]/faq/OFE463 (This link is being provided for informational/ educational purposes only.) Test Performed by [employer], [employer] [facility], [address] [place] [address] Edi Bansal M.D., Ph.D., Director of Laboratories , CLIA [id number] Ordering Provider: ILIANA GOODEN Report Released Date/Time: Jan 03, 2025 09:00 AM Reporting Lab: [place] [facility] [address] [place] [address] Performing Lab: [place] [facility] [address] [place] [address] FECAL LEUKOCYTES (PB) POSITIVE Dec 30, 2024 09:46 AM [facility] POC UA (STL-PB-MA) URINE Specimen Type: URINE No comment entered. Ordering Provider: ILIANA GOODEN Report Released Date/Time: Dec 30, 2024 09:53 AM Reporting Lab: [facility] [address] [facility] [address] Performing Lab: [facility] [address] [facility] [address] PROTEIN POC UA 30 mg/dL Negative BLOOD [...] Dec 27, 2024 11:03 AM 142/74 mm[Hg] [facility] Dec 27, 2024 10:45 AM 97.3 F 50 /min 155/87 mm[Hg] 20 /min 97 % 0 235.9 lb 32 [facility] Social History: Smoking Status (Most current) and Tobacco Use (All prior to encounter date) This section includes the most current, and the historical, smoking and tobacco- related health factors from the [place] facility where the Encounter took place. Current Smoking Status This section includes the most current smoking, or tobacco-related health factor, from the [place] facility where the Encounter took place. Date/Time Current Smoking Status Comment Alem willis Jan 15, 2024 09:00 AM VA-TOBACCO FORMER USER [facility] Tobacco Use History This section includes a history of the smoking, or tobacco-related health factors, that were collected on or before the date of the Encounter. The data comes from the [place] facility where the Encounter took place. Date/Time Smoking Status/Tobacco Use Comment F acility Jan 15, 2024 09:00 AM VA-TOBACCO QUIT 15 YRS OR MORE [facility] Apr 30, 2022 01:00 PM VA-TOBACCO FORMER USER [facility] Apr 30, 2022 01:00 PM VA-TOBACCO QUIT 15 YRS OR MORE [facility] Mar 13, 2021 11:00 AM VA-TOBACCO FORMER USER [facility] Mar 13, 2021 11:00 AM VA-TOBACCO QUIT 15 YRS OR MORE [facility] Mar 24, 2018 11:33 AM QUIT TOBACCO >7 YEARS AGO [facility] Feb 11, 2018 02:19 PM QUIT TOBACCO >7 YEARS AGO [facility] Apr 07, 2008 09:34 AM QUIT TOBACCO >7 YEARS AGO [facility] Dec 23, 2007 03:21 PM QUIT TOBACCO >7 YEARS AGO [facility] Advance Directives: All historical and current Section Date Range: From patient's date of to the date document was created. This section includes ALL of a patient's completed or amended [place] Advance and Rescinded Directives. The entries below indicate that a directive exists for the patient, but an actual copy is not included with this document. The data comes from all [facility]. Date Advance Directives Provider Source Mar 17, 2017 ADVANCE DIRECTIVE SEJAL ACOSTA [facility] Radiology Reports: +/- 30 days of [...] the Encounter. The data comes from all [place] treatment facilities. Date/Time Radiology Report Provider Source Jan 14, 2025 08:48 AM OBSTRUCTIVE SERIES : MARIO MCLAUGHLIN [id number] -[id number] M Exm Date: JAN 14, 2025@08:48 Req Phys: TINY,MOLLYR E III Pat Loc: PB-SATINDER PACT ECHO CHRIS (Req'g Lo Img Loc: PB-XRAY [place] Service: [place] [address] (Case [id number] COMPLETE) OBSTRUCTIVE SERIES (RAD Detailed) CPT:24040 Reason for Study: diarrhea Clinical History: diarrhea x 4 weeks Report Status: Verified Date Reported: JAN 14, 2025 Date Verified: JAN 14, 2025 Manufacturing Baker E-Sig: Report: Multiple views of the abdomen [...] process Primary Interpreting Staff: TARIQ PIERSON RADIOLOGIST (Manufacturing Baker, no e-sig) /TARIQ Crawford [facility] Pathology Reports: +/- 30 days of the [...] the Encounter. The data comes from all [place] treatment facilities. Date/Time Pathology Report Provider Source Jan 03, 2025 02:29 PM LR MICROBIOLOGY RE PORT: Accession [UID]: [id number] [[id number]] Received: Jan 03, 2025@14:29 Collection sample: STOOL Collection date: Jan 03, 2025 14:29 Site/Specimen: FECES Provider: ILIANA GOODEN Test(s) ordered: C&S STOOL..................... completed: Jan 08, 2025 10:27 * BACTERIOLOGY FINAL REPORT => Jan 08, 2025 11:12 TECH CODE: [id number] Bacteriology Remark(s): 01/06/25 MANJULA Culture shows LIGHT GROWTH NORMAL ENTERIC VIKKI. There will be no work up. 01/07/25 MANJULA CULTURE IN PROGRESS. 01/08/25 RS NO Aeromonas, Campylobacter, E.coli 0157, Plesiomonas, Salmonella, Shigella, or Yersinia isolated. CULTURE GREW USUAL ENTERIC VIKKI- NO ENTERIC PATHOGENS ISOLATED. CULTURE COMPLETE. =--=--=--=--=--=--=--=--=--=--= --=--=--=--=--=--=--=--=--=--=- -=--=--=--=--=-- Performing Laboratory: Bacteriology Report Performed By: [address]# [id number] [address] [facility] [address] [place] [address] LISA GARCIA [facility] Encounter Notes: All associated encounter notes This section contains the clinical notes associated to the Encounter. Date/Time Encounter Note(s) Provider Source Dec 27, 2024 10:18 AM NURSING PROGRESS N OTE: LOCAL TITLE: NURSING NOTE STANDARD TITLE: NURSING PROGRESS NOTE DATE OF NOTE: DEC 27, 2024@10:18 ENTRY DATE: DEC 27, 2024@10:19:03 AUTHOR: LADONNA GAINES EXP COSIGNER: URGENCY: STATUS: COMPLETED This nurse met in room 128 @ 1012 after his appt with Renetta Carlin and escorted him to room 112. stated talking with Renetta was helpful. Lyle states he thinks sleeping is the real problem. Many years ago his to go to sleep med was alcohol. He went to rehab and attended AAA meetings. 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 William called while in this room and wanting to send him questionnaires that would need to be filled out prior to getting scheduled MH appt. was hesitant to do these over text or email. This nurse TEAMs messaged William and let the know this nurse will ask the questions. Active Outpatient Medications: Active Outpatient Medications (including Supplies): Active Outpatient Medications Status 1) ATORVASTATIN CALCIUM 20MG TAB TAKE ONE TABLET BY MOUTH EVERY ACTIVE EVENING Indication: FOR HIGH CHOLESTEROL 2) CETIRIZINE HCL 10MG TAB TAKE ONE TABLET BY MOUTH ONCE A DAY ACTIVE Indication: FOR ALLERGY SYMPTOMS 3) DONEPEZIL HCL 10MG TAB TAKE ONE-HALF TABLET BY MOUTH AT ACTIVE BEDTIME (JUST BEFORE BEDTIME) Indication: FOR DEMENTIA 4) MONTELUKAST NA 10MG TAB TAKE ONE [...] 50MCG BY MOUTH ACTIVE ONCE A DAY takes the above meds as prescribed ALONG with OTC ASA 81mg and vit B12 daily. Suicide Screen - V: C-SSRS Screening [place] Suicide Severity Rating Scale (C-SSRS) screener 1. Over the past month, have you wished you were or wished you could go to sleep and not wake up? No 2. Over the past month, have you had any actual thoughts of killing yourself? No 3. Over the past month, have you been thinking about how you might do this? Response not required due to responses to other questions. 4. Over the past month, have you had these thoughts and had some intention of acting on them? Response not required due to responses to other questions. 5. Over the past month, have you started to work out or worked out the details of how to kill yourself? Response not required due to responses to other questions. 6. If yes, at any time in the past month did you intend to carry out this plan? Response not required due to responses to other questions. 7. In your lifetime, have you ever done anything, started to do anything, or prepared to do anything to end your life (for example, collected pills, obtained a gun, gave away valuables, went to the roof but didn't jump)? No 8. If YES, was this within the past 3 months? Response not required due to responses to other questions. Pain Assessment: - PAIN ASSESSMENT: .. Patient reports no pain at this visit. Pain Score = 0. Patient's self-identified pain goal: 0 PTSD Screening - V: PC-PTSD-5 A PTSD screening test (PC-PTSD-5) was negative (score=0). Sometimes things happen to people that are unusually or especially frightening, horrible or traumatic. For example: A serious accident or fire a physical or sexual assault or abuse An earthquake or flood A war Seeing someone be killed or seriously injured Having a loved one through homicide or suicide 1. Have you ever experienced this kind of event? NO 2. Had nightmares about the event(s) or thought about the event(s) when you did not want to? Response not required due to responses to other questions. 3. Tried hard not to think about the event(s) or went out of your way to avoid situations that reminded you of the event(s)? Response not required due to responses to other questions. 4. Been constantly on guard, watchful, or easily startled? Response not required due to responses to other questions. 5. [place] numb or detached from people, activities, or your surroundings? Response not required due to responses to other questions. 6. [place] guilty or unable to stop blaming yourself or others for the event(s) or any problems the event(s) may have caused? Response not required due to responses to other questions. Depression Monitoring (PHQ-9) - M,N,P,PH,PS,R,S,T: PHQ-9 A PHQ-9 screen was performed. The score was 4. 1. Little interest or pleasure in doing things Not at all 2. Feeling down, depressed, or hopeless Not at all 3. Trouble falling or staying asleep, or sleeping too much Nearly every day He sleeps about 4 hrs. and wakes up, after that he dozes off and on until he gets up. 4. Feeling tired or having little energy Several days 5. Poor appetite or overeating Not at all 6. Feeling bad about yourself or that you are a failure or have let yourself or your family down Not at all 7. Trouble concentrating on things, such as reading the newspaper or watching television Not at all 8. Moving or speaking so slowly that other people could have noticed. Or the opposite being so fidgety or restless that you have been moving around a lot more than usual Not at all 9. Thoughts that you would be better off or of hurting yourself in some way Not at all 10. If you checked off any problems, how DIFFICULT have these problems made it for you to do your work, take care of things at home or get along with other people? Somewhat difficult Lyle had no previous PHQ-9 score to compare to current score to gauge improvement Interprofessional Communication: Other Communication: is not interested in MH, he feels his problems are related to not being able to sleep HTN Assess for Elevated BP>=140/90 - N,P,PH: Repeat blood pressure: 142/74 Generalized Anxiety Disorder- 1. Feeling nervous anxious or on edge several days 2. Not being able to stop or control worrying nearly every day 3. Worrying too much about different things nearly every day 4. Trouble relaxing several days 5. Being so restless that it is hard to sit still not at all 6. Becoming easily annoyed or irritable nearly every day 7. Feeling afraid as if something awful might happen several days Insomnia Severity Scale 1. Difficulty falling asleep mild 2. Difficulty staying asleep mild 3. Problems waking up too early severe 4. How satisfied/dissatisfied are you with your current sleep pattern? dissatisfied 5. How noticeable to others do you think your sleep problem is in terms of impairing the quality of your life? much 6. How worried/distressed are you about your current sleep problem? very much worried 7. To what extent do you consider your sleep problem to interfere with your daily functioning currently? very much interfering Danya is calm and pleasant during this assessment. He states he is not interested in MH counseling/psychiatry. Danya again states his biggest concern is his sleep. he will sleep about 4 hrs. and then wake up, after that he dozes off and on. Danya has never tried any sleep aids prescribed or OTC. This nurse explained there were multiple OTC sleep aids available, one of which is melatonin. Explained to him this nurse was going to talk with Dr Gooden on the does she recommended. Instructed he danya 10mg is what she recommended and wrote the name and dose on a sticky not for him. he is aware he has an appt with her scheduled for 12-30-24 @ 0830 and he will be able to let her know if this med is effective. Danya is agreeable to this plan and will let us know in the future if he wanted MH services. He was escorted to the lobby in satisfactory condition. /reyna/ SOFIE WINTER, RN [facility] Signed: 12/27/2024 11:29 LADONNA GAINES [facility]
--- OUTSIDE RECORDS SUMMARY | 2024-12-30 03:30 | XMS_ITS | Encounter Summary ---
Author Name [facility] [place] Organization [facility] [place] Address [address] [place] [address] Care Team Providers Care [employer] Team Member Name Role Phone ILIANA GOODEN Primary Care [...] PART A Jul 24, 2016 PART A [id number] LISSETTEMARIO PATIENT MEDICARE (WNR) MEDICARE (M) PART A Jul 24, 2016 PART A [id number] [phone] MARIO MCLAUGHLIN PATIENT Selected Encounter This section includes the information on record at [place] for the Encounter. Date/Time Encounter Type Encounter Description Reason Provider Source Dec 30, 2024 08:30 AM OFFICE O/P EST MOD 30 MIN PRIMARY CARE/MEDICINE ICD-10-CM F41.9 Anxiety disorder, unspecified ILIANA GOODEN [employer] Encounter Template Text not used by [place] Assessments - Encounter Diagnoses This section includes the primary and secondary diagnoses documented for the Encounter. Date/Time Primary/Secondary Diagnosis Diagnosis Name Provider Source Dec 30, 2024 01:26 PM PRIMARY Anxiety disorder, unspecified ILIANA GOODEN [facility] Dec 30, 2024 01:26 PM SECONDARY Primary insomnia ILIANA GOODEN [facility] Dec 30, 2024 01:26 PM SECONDARY Vascular dementia, unsp severity, without beh/psych/mood/anx ILIANA GOODEN [facility] Plan of Treatment: Future Appointments (+ 6 months) and Future Tests (+/- 45 days) The Plan of Treatment section includes future care activities for the patient from all [facility]. This section includes future appointments and future orders which are active, pending or scheduled. Future Appointments This section includes appointments that were scheduled to occur 6 months from the date of the Encounter, up to a maximum of 20 appointments. The data comes from all [facility]. Appointment Date/Time Appointment Type Appointme nt Facility Name Jan 03, 2025 08:00 AM AMBULATORY - MEDICINE [facility] Jan 14, 2025 08:30 AM AMBULATORY - MEDICINE [facility] Jan 14, 2025 08:45 AM AMBULATORY - MEDICINE [facility] Jan 31, 2025 09:00 AM AMBULATORY - MEDICINE [facility] Feb 03, 2025 08:00 AM AMBULATORY - MEDICINE [facility] Feb 07, 2025 09:15 AM AMBULATORY - MEDICINE [facility] Feb 09, 2025 03:30 PM AMBULATORY - MEDICINE [place] [facility] Feb 17, 2025 01:30 PM AMBULATORY - MEDICINE [facility] Feb 25, 2025 11:30 AM AMBULATORY - NONE [place] [facility] Mar 02, 2025 01:30 PM AMBULATORY - MEDICINE [place] [facility] Mar 03, 2025 11:30 AM AMBULATORY - MEDICINE [place] [facility] Active, Pending, and Scheduled Orders This section includes a listing of several types of active, pending, and scheduled orders, including clinic medications orders, diagnostic test orders, procedure orders and consult orders; where the start date of the order is 45 days before the date of the Encounter or 45 days after the date of theEncounter. The data comes from all [facility] treatment facilities. Test Date/Time Test Type Test Details Facility Name Dec 27, 2024 01:54 PM Consult Order [facility]-NEUROLOGY [id number] Cons Risk Investigator's Choice [place] [facility] Dec 30, 2024 12:00 AM Laboratory - Chemi stry Order POC UA (STL-PB-MA) URINE SP [facility] CB Jan 03, 2025 12:36 PM Consult Order [facility]-OPTOMETRY ROUTINE [id number] Cons Risk Investigator's [facility] Jan 28, 2025 12:34 PM Consult Order [facility]-GI GENERAL [id number] [facility] Risk Investigator's [facility] Lab Results: +/- 30 days of the encounter This section includes the Chemistry and Hematology Lab Results on record with [place] for the patient. Radiology Reports and Pathology Reports are provided separately, in subsequent sections. Lab Results This section contains the Chemistry/Hematology Results that were resulted 30 days before or 30 daysafter the date of the Encounter. Date/Time Source Result Type Result - Unit Interpretation Reference Range Specimen Type Comment Jan 14, 2025 09:01 AM [facility] ZBVBTAKHC-WFHMA-6,3-GALACTOSE IGE SERUM Speci men Type: SERUM Comment: REFERENCE RANGE: <0.10 kU/L Results above 0.1 kU/L indicate an allergen-specific IgE sensitization to aebxurymk-y-8,3-g alactose, and such patients are at risk [...] method. Additional information can be found at [email or web address] [email or web address]! Happen .Acomni Test performed by [employer] [facility] [address] [place] [address] Chief Medical Officer: Atiya Marie MD,PHD,CY Test Reported by [facility], [employer] [facility], [address] [place], [place] Edi Bansal M.D., Ph.D., Director of Laboratories , [place] [id number] Ordering Provider: LUPE FRANKS III Report Released Date/Time: Jan 14, 2025 08:46 AM Reporting Lab: [place] [facility] [address] [place] [address] Performing Lab: [place] [facility] [address] [facility] ASFOCHOUJ-MJDWZ-0,3-GALACTOSE IGE <0.10 kU/L SEE BELOW Jan 14, 2025 09:01 AM [facility] COMPREHENSIVE METABOLIC PANEL PLASMA Specimen Type: PLASMA No comment entered. Ordering Provider: LUPE FRANKS III Report Released Date/Time: Jan 14, 2025 08:46 AM Reporting Lab: [place] [facility] [address] [place] [address] Performing Lab: [place] [facility] [address] [place] [address] CREATININE 1.04 mg/dL 0.7-1.3 UREA NITROGEN 18 [...] 2020) 76 Jan 14, 2025 09:01 AM [facility] CBC BLOOD Specimen Type: BLOOD No comment entered. Ordering Provider: LUPE FRANKS III Report Released Date/Time: Jan 14, 2025 08:46 AM Reporting Lab: [place] [facility] [address] [place] [address] Performing Lab: [place] [facility] [address] [place] [address] WBC 5.7 10*3/uL 3.6-11.2 RBC 5.00 10*6/uL [...] EXAMINATION FOR OVA AND PARASITES SOURCE : [id number] RESULT/COMMENT: It is controversial whether identification of [...] STAIN For additional information, please refer to [email or web address]/faq/LOH002 (This link is being provided for informational/ educational purposes only.) Test Performed by [employer] [place], [employer] [facility], [address] [place] [address] Edi Bansal M.D., Ph.D., Director of Laboratories , [place] [id number] Ordering Provider: ILIANA GOODEN Report Released Date/Time: Jan 03, 2025 09:00 AM Reporting Lab: [facility] [address] [facility] [address] Performing Lab: [place] [id number] [facility] OVA & PARASITE, STOOL (PB) comment Jan 03, 2025 02:29 PM [facility] C DIFF EPI PCR PNL FECES Specimen Type: FECES Comment: OVA AND PARASITES, CONCENTRATE AND PERMANENT SMEAR EXAMINATION FOR OVA AND PARASITES SOURCE : [id number] RESULT/COMMENT: It is controversial whether identification of [...] STAIN For additional information, please refer to https://education.[employer]/faq/ZXS014 (This link is being provided for informational/ educational purposes only.) Test Performed by [employer], [address] [place] [address] Edi Bansal M.D., Ph.D., Director of Laboratories , [facility] [id number] Ordering Provider: ILIANA GOODEN Report Released Date/Time: Jan 03, 2025 09:00 AM Reporting Lab: [facility] [address] [facility] [address] Performing Lab: [facility] [address] [facility] [address] [id number] STRAIN OF C.DIFF Presumptive Negativ e Presumptive Negative C DIFF EPI PCR Negative Negative Jan 03, 2025 02:29 PM [facility] FECAL LEUKOCYTES (PB) FECES Specimen Type: FE NICHOLAS Comment: OVA AND PARASITES, CONCENTRATE AND PERMANENT SMEAR EXAMINATION FOR OVA AND PARASITES SOURCE : [id number] RESULT/COMMENT: It is controversial whether identification of [...] STAIN For additional information, please refer to [email or web address].[employer]/faq/VGF980 (This link is being provided for informational/ educational purposes only.) Test Performed by [employer], [address] [place] [address] Edi Bansal M.D., Ph.D., Director of Laboratories , [facility] [id number] Ordering Provider: ILIANA GOODEN Report Released Date/Time: Jan 03, 2025 09:00 AM Reporting Lab: [place] [facility] [address] [place] [address] Performing Lab: [place] [facility] [address] [place] [address] FECAL LEUKOCYTES (PB) POSITIVE Dec 30, 2024 09:46 AM [facility] POC UA (STL-PB-MA) URINE Specimen Type: URINE No comment entered. Ordering Provider: ILIANA GOODEN Report Released Date/Time: Dec 30, 2024 09:53 AM Reporting Lab: [facility] [address] [facility] [address] Performing Lab: [facility] [address] [facility] [address] PROTEIN POC UA 30 mg/dL Negative BLOOD [...] Height Weight Body Mass Index Source Dec 30, 2024 08:27 AM 98.3 F 74 /min 125/82 mm[Hg] 18 /min 94 % 0 72.0 in 228.6 lb 31 [facility] Social History: Smoking Status (Most current) and Tobacco Use (All prior to encounter date) This section includes the most current, and the historical, smoking and tobacco- related health factors from the [place] facility where the Encounter took place. Current Smoking Status This section includes the most current smoking, or tobacco-related health factor, from the [place] facility where the Encounter took place. Date/Time Current Smoking Status Comment Facil ity Jan 15, 2024 09:00 AM [place]-TOBACCO FORMER USER [facility] Tobacco Use History This section includes a history of the smoking, or tobacco-related health factors, that were collected on or before the date of the Encounter. The data comes from the [place] facility where the Encounter took place. Date/Time Smoking Status/Tobacco Use Comment F acility Jan 15, 2024 09:00 AM VA-TOBACCO QUIT 15 YRS OR MORE [facility] Apr 30, 2022 01:00 PM VA-TOBACCO FORMER US[place] [facility] Apr 30, 2022 01:00 PM VA-TOBACCO QUIT 15 YRS OR MORE [facility] Mar 13, 2021 11:00 AM VA-TOBACCO FORMER USER [facility] Mar 13, 2021 11:00 AM VA-TOBACCO QUIT 15 YRS OR MORE [facility] Mar 24, 2018 11:33 AM QUIT TOBACCO >7 YEARS AGO [facility] Feb 11, 2018 02:19 PM QUIT TOBACCO >7 YEARS AGO [facility] Apr 07, 2008 09:34 AM QUIT TOBACCO >7 YEARS AGO [facility] Dec 23, 2007 03:21 PM QUIT TOBACCO >7 YEARS AGO [facility] Advance Directives: All historical and current Section Date Range: From patient's date of to the date document was created. This section includes ALL of a patient's completed or amended [place] Advance and Rescinded Directives. The entries below indicate that a directive exists for the patient, but an actual copy is not included with this document. The data comes from all [place] facilities. Date Advance Directives Provider Source Mar 17, 2017 ADVANCE DIRECTIVE SEJAL ACOSTA [facility] Radiology Reports: +/- 30 days [...] the Encounter. The data comes from all [place] treatment facilities. Date/Time Radiology Report Provider Source Jan 14, 2025 08:48 AM OBSTRUCTIVE SERIES : MARIO MCLAUGHLIN [id number] -[id number] M Exm Date: JAN 14, 2025@08:48 Req Phys: FRANKS,MOLLYR E III Pat Loc: PB-SATINDER PACT ECHO CHRIS (Req'g Lo Img Loc: PB-XRAY [place] Service: [place] [address] (Case [id number] COMPLETE) OBSTRUCTIVE SERIES (RAD Detailed) CPT:11975 Reason for Study: diarrhea Clinical History: diarrhea x 4 weeks Report Status: Verified Date Reported: JAN 14, 2025 Date Verified: JAN 14, 2025 Learning Specialist E-Sig: Report: Multiple views of the abdomen [...] process Primary Interpreting Staff: TARIQ PIERSON RADIOLOGIST (Learning Specialist, no e-sig) /TARIQ Crawford [facility] Pathology Reports: +/- 30 days of [...] the Encounter. The data comes from all [place] treatment facilities. Date/Time Pathology Report Provider Source Jan 03, 2025 02:29 PM LR MICROBIOLOGY RE PORT: Accession [UID]: [id number] [[id number]] Received: Jan 03, 2025@14:29 Collection sample: STOOL Collection date: Jan 03, 2025 14:29 Site/Specimen: FECES Provider: ILIANA GOODEN Test(s) ordered: C&S STOOL..................... completed: Jan 08, 2025 10:27 * BACTERIOLOGY FINAL REPORT => Jan 08, 2025 11:12 TECH CODE: [id number] Bacteriology Remark(s): 01/06/25 [facility] Culture shows LIGHT GROWTH NORMAL ENTERIC VIKKI. There will be no work up. 01/07/25 MANJULA CULTURE IN PROGRESS. 01/08/25 NO Aeromonas, Campylobacter, E.coli 0157, Plesiomonas, Salmonella, Shigella, or Yersinia isolated. CULTURE GREW USUAL ENTERIC VIKKI- NO ENTERIC PATHOGENS ISOLATED. CULTURE COMPLETE. =--=--=--=--=--=--=--=--=--=--= --=--=--=--=--=--=--=--=--=--=- -=--=--=--=--=-- Performing Laboratory: Bacteriology Report Performed By: [facility] [address] CLIA# [id number] [address] [address] LISA GARCIA [facility] Encounter Notes: All associated encounter notes This section contains the clinical notes associated to the Encounter. Date/Time Encounter Note(s) Provider Source Dec 30, 2024 08:31 AM PRIMARY CARE PROGR ESS NOTE: LOCAL TITLE: PRIMARY CARE CLINIC PROGRESS NOTE PB STANDARD TITLE: PRIMARY CARE PROGRESS NOTE DATE OF NOTE: DEC 30, 2024@08:31 ENTRY DATE: DEC 30, 2024@08:31:32 AUTHOR: ILIANA GODOEN EXP COSIGNER: URGENCY: STATUS: COMPLETED SUBJECTIVE: MARIO MCLAUGHLIN is a 74 years old MALE. CC: anxiety HPI: Patient reports increasing issues with his baseline anxiety especially the last couple of weeks with starting a new job. He reports just difficulty shutting his mind down to sleep and and feeling anxious in general. He was seen by mental health nurse on 12/27/24, and after talking with me was started on melatonin 10 mg at bedtime. He does report sleeping better the last couple of days. He does report he is noticing that his dementia is continuing to slowly progress he has appointment neurology he thinks next week. He is also for the last 4 days he had a little bodyaches some diarrhea for the last 2 days chills frequent urination but is actually feeling better today. Non-VA Primary Care Provider None Specialty Services ?neurologist [place] urologist, Dr. 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] 50MCG BY MOUTH ACTIVE ONCE A DAY 7 Total Medications Allergies: Patient has answered NKA Review of Systems: as per HPI and Systemic: Denies fatigue, fever, chills, or weight loss CV: Denies chest pain, palpitations Pulmonary: Denies hemoptysis, Shortness of breath, dyspnea on exertion GI: Denies constipation, bloody stools, diarrhea, indigestion, or n/v Ext: Denies any swelling Neuro: Denies slurred speech or dizziness Skin: Denies abnormal lesions; denies any new rashes PSYCH: Denies SI/HI; denies nightmares OBJECTIVE: Vital Signs Temperature: 98.3 F [36.8 C] (12/30/2024 08:27) Respiratory Rate: 18 (12/30/2024 08:27) Pulse Rate: 74 (12/30/2024 08:27) Blood Pressure: 125/82 (12/30/2024 08:27) HT: 72.0 in [182.9 cm] (12/30/2024 08:27) WT: 228.6 lb [103.69 kg] (12/30/2024 08:27) BMI: 31.1 94% (12/30/2024 08:27) Physical Exam General: NAD noted, A&Ox3, pleasant, appears stated age HEENT: NCAT, TM's clear, nares and oropharynx clear Neck: Supple with normal active ROM, without any lymphadenopathy Heart: RRR, no murmur, clicks, or rub Resp: Lungs CTA bilaterally, respirations even and unlabored Ext: No clubbing, cyanosis, edema or obvious deformity Skin: Warm, pink, and dry, no rashes Neuro: Grossly intact Psych: Affect normal, answers questions appropriately throughout visit POC UA today negative for nitrates leukocytes, he did have a trace of ketones A/P: ASSESSMENT and PLAN 1) Anxiety/depression-discusse d starting patient on medication for his baseline anxiety which he did want to go ahead and proceed with will start on Celexa 20 mg daily called out to Naren to get started on that today. 2) Insomnia-we will continue with the melatonin 10 mg at bedtime 3) Memory loss-currently onmemantine and donepezil-will increase his 4donepezi to 10 mg daily 4) Resolving viral gastroenteritis-instructed on oral rehydration and supportive care Stable. Discussed medications with patient; med rec completed. Continue current regimen as prescribed by PCP and specialists. RTC as needed if developing any new or worsening symptoms. Please notify PACT with medication changes or for orders coordination as needed if seen by a specialist in the future. Will f/u with patient once updated labs / imaging / testing received; otherwise f/u as listed below. Follow-up: As scheduled With fasting labs prior to appointment and/or as needed. Discussed with patient that [...] appointments. Medications Reconciled. See AVS given to [place]. Time spent 30 minutes. /reyna/ MD Kathi Frank CB Primary Care Signed: 12/30/2024 13:29 ILIANA GOODEN CB Dec 30, 2024 08:20 AM PRIMARY CARE NURSI SERENITY NOTE: LOCAL TITLE: PRIMARY CARE NURSING PROGRESS NOTE (TEXT) NURSING P STANDARD TITLE: PRIMARY CARE NURSING NOTE DATE OF NOTE: DEC 30, 2024@08:20 ENTRY DATE: DEC 30, 2024@08:20:48 AUTHOR: LILO BRANDTIGNER: URGENCY: STATUS: COMPLETED Established Patient MARIO MCLAUGHLIN IS A 74 YEAR OLD MALE BEING SEEN IN CLINIC DEC 30, 2024. == == REASON FOR VISIT: [place] here with c/o increased anxiety since quitting job, difficulty sleeping, was sick last week, has cont diarrhea, frequent urinating Are you receiving care any where other than the VA? No HEALTH AND SURGICAL HISTORY: Does patient report using home oxygen? No CURRENT ACTIVE MEDICATIONS FOR REVIEW: If the list for review does not include a component, then it was not applicable to this patient. Allergies/ADRs (Tool #5) FACILITY ALLERGY/ADR -------- No Remote Allergy/ADR Data available for this patient [facility] No Known Allergies Med. Reconciliation (Tool #1) INCLUDED IN THIS LIST: Alphabetical list of active outpatient prescriptions dispensed from this VA (local) and dispensed from another VA or DoD facility (remote) as well as inpatient orders (local pending and active), local clinic medications, locally documented non-VA medications, and local prescriptions that have or been discontinued in the past 90 days. Non-VA Meds Last Documented On: Jan 09, 2023 NOTE The display of VA prescriptions dispensed from another VA or DoD facility (remote) is limited to active outpatient prescription entries matched to National Drug File at the originating site and may not include some items such as investigational drugs, compounds, etc. NOT INCLUDED IN THIS LIST: Medications self-entered by the patient into personal health records (i.e. [facility]) are NOT included in this list. Non-VA medications documented outside this [place], remote inpatient orders (regardless of status) and remote clinic medications are NOT included in this list. The patient and provider must always discuss medications the patient is taking, regardless of where the medication was dispensed or obtained. OUTPT ATORVASTATIN CALCIUM 20MG TAB (Status = Active) TAKE ONE TABLET BY MOUTH EVERY EVENING FOR HIGH CHOLESTEROL Rx# [id number] Last Released: 11/24/24 Qty/Days Supply: Rx Expiration Date: 01/15/25 Refills Remainin Indication: FOR HIGH CHOLESTEROL OUTPT CETIRIZINE HCL 10MG TAB (Status = Active) TAKE ONE TABLET BY MOUTH ONCE A DAY FOR ALLERGY SYMPTOMS Rx# [id number] Last Released: 08/19/24 Qty/Days Supply: Rx Expiration Date: 02/09/25 Refills Remainin Indication: FOR ALLERGY SYMPTOMS Non-VA CHOLECALCIF 50MCG (D3-2,000UNIT) TAB TAKE ONE TABLET BY MOUTH ONCE A DAY Medication prescribed by Non-VA provider OUTPT DONEPEZIL HCL 10MG TAB (Status = Active) TAKE ONE-HALF TABLET BY MOUTH AT BEDTIME FOR DEMENTIA (JUST BEFORE BEDTIME) Rx# [id number] Last Released: 10/06/24 Qty/Days Supply: Rx Expiration Date: 10/05/25 Refills Remainin Indication: FOR DEMENTIA OUTPT MONTELUKAST NA 10MG TAB (Status = Active) TAKE ONE TABLET BY MOUTH EVERY EVENING Rx# [id number] Last Released: 10/20/24 Qty/Days Supply: Rx Expiration Date: 03/27/25 Refills Remainin OUTPT SILDENAFIL CITRATE 100MG TAB (Status = Active) TAKE ONE TABLET BY MOUTH EVERY WEEK NEEDED FOR ERECTILE DYSFUNCTION (TAKE 60 MINUTES PRIOR TO SEXUAL ACTIVITY) - LIMIT 4 DOSES PER 30 DAYS Rx# [id number] Last Released: 08/02/24 Qty/Days Supply: Rx Expiration Date: 05/25/25 Refills Remainin OUTPT TAMSULOSIN HCL 0.4MG CAP (Status = Active) TAKE ONE CAPSULE BY MOUTH EVERY EVENING APPROXIMATELY 30 MINUTES AFTER THE SAME MEAL EACH DAY (FOR PROSTATE) Rx# [id number] Last Released: 09/13/24 Qty/Days Supply: Rx Expiration Date: 01/30/25 Refills Remainin SUPPLIES PHARMACY TERMS AND POSSIBLE PATIENT ACTIONS INPT = [place] inpatient order IV = [place] intravenous medication OUTPT = [place] outpatient prescription PHARMACY POSSIBLE PATIENT TERMS EXPLANATION ACTIONS -------- ----- ACTIVE A prescription that can be If you have refills, filled at the local [place] pharmacy. you may request a refill of this prescription from your [place] pharmacy. CLINIC A medication you received during If you have questions a visit to a [place] clinic or about this medication emergency department. contact your [place] healthcare team. DISCONTINUED A prescription your provider has Contact your VA stopped. It is no longer healthcare team if you available to be sent to you or need more of this picked up at the [place] pharmacy medication. window. A prescription which is too old Contact your [place] to fill. This does not refer to [...] the VA. Or, it may be an hkpm-gnv-dcqwocz (OTC), herbal, dietary supplements or sample medication. [...] An active prescription that is Contact your [place] not scheduled to be filled yet. pharmacy if you need You should receive it before this medication now. you run out. Medication list reviewed with Patient Patient/Caregiver reports taking medications as ordered. IS PATIENT TAKING ANY OVER THE COUNTER MEDICATIONS, SUCH VITAMINS OR HERBAL SUPPLEMENTS, INCLUDING ANY MEDICATIONS PRESCRIBED BY ANOTHER PHYSICIAN? Yes, List: melatonin Does patient have any new allergies to report since last visit? NO VITALS: TEMPERATURE: 97.3 F [36.3 C] (12/27/2024 10:45) BP: 142/74 (12/27/2024 11:03) RESP: 20 (12/27/2024 10:45) PULSE: 50 (12/27/2024 10:45) HT: 72.0 in [182.9 cm] (05/31/2024 13:06) WT: 235.9 lb [107.00 kg] (12/27/2024 10:45) BMI: 32.1 PAIN ASSESSMENT: (Most Recent Pain Score in Vitals Package: 0 (12/27/2024 10:45) ) The patient indicated that they and [...] Now let us serve you. At the [facility], we strive to provide you with [...] Not At All SPIRITUAL ASSESSMENT: Are there restorationist practices or spiritual concerns you want the parachute folder, your physician, and other health care team members to immediately know about? No Patient advised to call the clinic for any concerns, questions, or symptoms. Patient and/or caregiver verbalized understanding of plan of care. /reyna/ MENA CHAO CBJESSENIA Signed: 12/30/2024 08:29 LILO BRANDT CBJESSENIA
--- OUTSIDE RECORDS SUMMARY | 2025-01-14 03:30 | XMS_ITS | Encounter Summary ---
Author Name [facility] [place] Address [address] [place] [address] Care Team Providers Care Neuroscience Director Na Name Role Phone ILIANA GOODEN Primary Care [...] PART A Jul 24, 2016 PART A [id number] LIS[place]ARIO PATIENT MEDICARE (WNR) MEDICARE (M) PART A Jul 24, 2016 PART A [id number] MARIO MCLAUGHLIN PATIENT Selected Encounter This section includes the information on record at [place] for the Encounter. Date/Time Encounter Type Encounter Description Reason Provider Source Jan 14, 2025 08:30 AM OFF/OP EST OCTOBER X REQ PHY/QHP PRIMARY CARE/MEDICINE ICD-10-CM R19.7 Diarrhea, unspecified GIOVANNY BERUMEN Encounter Template Text not used by [place] Assessments - Encounter Diagnoses This section includes the primary and secondary diagnoses documented for the Encounter. Date/Time Primary/Secondary Diagnosis Diagnosis Name Provider Source Jan 14, 2025 09:50 AM PRIMARY Diarrhea, unspecified GIOVANNY BERUMEN [facility] Plan of Treatment: Future Appointments (+ 6 months) and Future Tests (+/- 45 days) The Plan of Treatment section includes future care activities for the patient from all [place] [facility]. This section includes future appointments and future orders which are active, pending or scheduled. Future Appointments This section includes appointments that were scheduled to occur 6 months from the date of the Encounter, up to a maximum of 20 appointments. The data comes from all [facility]. Appointment Date/Time Appointment Type Appointme nt Facility Name Jan 31, 2025 09:00 AM AMBULATORY - MEDICINE [facility] Feb 03, 2025 08:00 AM AMBULATORY - MEDICINE [facility] Feb 07, 2025 09:15 AM AMBULATORY - MEDICINE [facility] Feb 09, 2025 03:30 PM [facility]ORY - MEDICINE [place] [facility] Feb 17, 2025 01:30 PM AMBULATORY - MEDICINE [facility] Feb 25, 2025 11:30 AM AMBULATORY - NONE [place] [facility] Mar 02, 2025 01:30 PM AMBUL[facility]ORY - MEDICINE [place] [facility] Mar 03, 2025 11:30 AM AMBULATORY - MEDICINE [place] [facility] Active, Pending, and Scheduled Orders This section includes a listing of several types of active, pending, and scheduled orders, including clinic medications orders, diagnostic test orders, procedure orders and consult orders; where the start date of the order is 45 days before the date of the Encounter or 45 days after the date of theEncounter. The data comes from all [facility]. Test Date/Time Test Type Test Details Facility Name Dec 27, 2024 01:54 PM Consult Order [facility]-NEUROLOGY [id number] Cons Folder Inspector's Choice [facility] Dec 30, 2024 12:00 AM Laboratory - Chemi stry Order POC UA (STL-PB-MA) URINE SP [facility] Jan 03, 2025 12:36 PM Consult Order [facility]ITY CARE-OPTOMETRY ROUTINE [id number] Cons Folder Inspector's Choice [facility] Jan 28, 2025 12:34 PM Consult Order [facility] [id number] Cons Folder Inspector's [facility] Feb 17, 2025 01:34 PM Procedure Order CP EKG PB CP MUSE EKG POP [id number] Proc Folder Inspector's [facility] Feb 17, 2025 01:54 PM Consult Order [facility] ROOM [id number] Cons Folder Inspector's [facility] Feb 25, 2025 12:00 AM Imaging - CT Scan Order CT ABD W&W/O -CT PELVIS W/CONTRAST -P [facility] Lab Results: +/- 30 days of the encounter This section includes the Chemistry and Hematology Lab Results on record with [place] for the patient. Radiology Reports and Pathology Reports are provided separately, in subsequent sections. Lab Results This section contains the Chemistry/Hematology Results that were resulted 30 days before or 30 daysafter the date of the Encounter. Date/Time Source Result Type Result - Unit Interpretation Reference Range Specimen Type Comment Feb 11, 2025 11:14 AM [facility] COMPREHENSIVE METABOLIC PANEL PLASMA Specimen Type: PLASMA No comment entered. Ordering Provider: LUPE FRANKS III Report Released Date/Time: Feb 10, 2025 11:38 AM Reporting Lab: [place] [facility] [address] [place] [facility] [address] Performing Lab: [place] [facility] [address] [facility] [address] CREATININE 1.06 mg/dL 0.7-1.3 UREA NITROGEN 9 mg/dL 9-25 GLUCOSE 100 mg/dL H 72-99 SODIUM 144 meq/L 136-145 POTASSIUM 3.8 meq/L 3.5-5 CHLORIDE 106 meq/L 98-107 CARBON DIOXIDE 28 meq/L 22-31 CALCIUM 9.0 mg/dL 8.4-10.4 PROTEIN 6.7 g/dL 6-8.6 ALBUMIN 4.1 g/dL 3.4-5 TOTAL BILIRUBIN 1.0 mg/dL 0.2-1.2 ALKALINE PHOSPHATASE 110 U/L 40-150 AST/SGOT 21 U/L 5-34 ALT/SGPT 19 U/L 8-40 EGFR (CKD-EPI 2020) 74 Jan 14, 2025 09:01 AM [facility] WMNGQKAFP-QKTUK-3,3-GALACTOSE IGE SERUM Speci men Type: SERUM Comment: REFERENCE RANGE: <0.10 kU/L Results above 0.1 kU/L indicate an allergen-specific IgE sensitization to mltjbuqmw-g-3,3-galactose, and such patients are at risk for [...] method. Additional information can be found at [email or web address] Test performed by [facility] [address] [place] [address] Brand Mgr: Atiya Marie MD,PHD,CY Test Reported by [facility], [facility], [address] [place] [address] Edi Bansal M.D., Ph.D., Director of Laboratories , [facility] [id number] Ordering Provider: LUPE FRANKS III Report Released Date/Time: Jan 14, 2025 08:46 AM Reporting Lab: [place] [facility] [address] [place] [address] Performing Lab: [place] [facility] [address] [facility] ZTYLSWTED-YHUBO-7,3-GALACTOSE IGE <0.10 kU/L SEE BELOW Jan 14, 2025 09:01 AM [facility] CB COMPREHENSIVE METABOLIC PANEL PLASMA Specimen Type: PLASMA No comment entered. Ordering Provider: LUPE FRANKS III Report Released Date/Time: Jan 14, 2025 08:46 AM Reporting Lab: [place] [facility] [address] [place] [address] Performing Lab: [place] [facility] [address] [place] [address] CREATININE 1.04 mg/dL 0.7-1.3 UREA NITROGEN 18 [...] 2020) 76 Jan 14, 2025 09:01 AM [facility] CBC BLOOD Specimen Type: BLOOD No comment entered. Ordering Provider: LUPE FRANKS III Report Released Date/Time: Jan 14, 2025 08:46 AM Reporting Lab: [place] [facility] [address] [place] [address] Performing Lab: [facility] [facility] [facility] [address] [place] [address] WBC 5.7 10*3/uL 3.6-11.2 RBC 5.00 10*6/uL [...] 0. 00-0.05 Jan 03, 2025 02:29 PM [facility] OVA & PARASITE, STOOL (PB) FECES Specimen Typ e: FECES Comment: OVA AND PARASITES, CONCENTRATE AND PERMANENT SMEAR EXAMINATION FOR OVA AND PARASITES SOURCE : [id number] RESULT/COMMENT: It is controversial whether identification of [...] STAIN For additional information, please refer to https://education.[employer] ([employer]/faq/XIH827 (This link is being provided for informational/ educational purposes only.) Test Performed by [facility], [facility], [address] [place], [place] Edi Bansal M.D., Ph.D., Director of Laboratories , [facility] [id number] Ordering Provider: ILIANA GOODEN Report Released Date/Time: Jan 03, 2025 09:00 AM Reporting Lab: [place] [facility] [address] [place] [address] Performing Lab: [place] [facility] [address] [facility] OVA & PARASITE, STOOL (PB) comment Jan 03, 2025 02:29 PM [facility] C DIFF EPI PCR PNL FECES Specimen Type: FECES Comment: OVA AND PARASITES, CONCENTRATE AND PERMANENT SMEAR EXAMINATION FOR OVA AND PARASITES SOURCE : [id number] RESULT/COMMENT: It is controversial whether identification of [...] STAIN For additional information, please refer to https://education.[employer]/faq/LSG454 (This link is being provided for informational/ educational purposes only.) Test Performed by [facility], [facility], [address] [place] [address] Edi Bansal M.D., Ph.D., Director of Laboratories , [facility] [id number] Ordering Provider: ILIANA GOODEN Report Released Date/Time: Jan 03, 2025 09:00 AM Reporting Lab: [place] [facility] [address] [place] [address] Performing Lab: [place] [facility] [address] [place] [address] [id number] STRAIN OF C.DIFF Presumptive Negativ e Presumptive Negative C DIFF EPI PCR Negative Negative Jan 03, 2025 02:29 PM [facility] FECAL LEUKOCYTES (PB) FECES Specimen Type: FE NICHOLAS Comment: OVA AND PARASITES, CONCENTRATE AND PERMANENT SMEAR EXAMINATION FOR OVA AND PARASITES SOURCE : [id number] RESULT/COMMENT: It is controversial whether identification of [...] STAIN For additional information, please refer to https://education.[employer]/faq/ICT203 (This link is being provided for informational/ educational purposes only.) Test Performed by [facility], [facility], [address] [place] [address] Edi Bansal M.D., Ph.D., Director of Laboratories , [facility] [id number] Ordering Provider: ILIANA GOODEN Report Released Date/Time: Jan 03, 2025 09:00 AM Reporting Lab: [place] [facility] [address] [place] [address] Performing Lab: [place] [facility] [address] [place] [address] FECAL LEUKOCYTES (PB) POSITIVE Dec 30, 2024 09:46 AM [facility] POC UA (STL-PB-MA) URINE Specimen Type: URINE No comment entered. Ordering Provider: ILIANA GOODEN Report Released Date/Time: Dec 30, 2024 09:53 AM Reporting Lab: [facility] [address] [facility] [address] Performing Lab: [facility] [address] [facility] [address] PROTEIN POC UA 30 mg/dL Negative BLOOD [...] Pain Height Weight Body Mass Index Source Jan 14, 2025 09:05 AM 97.9 F 53 /min 111/72 mm[Hg] 18 /min 96 % 2 [facility] Social History: Smoking Status (Most current) and Tobacco Use (All prior to encounter date) This section includes the most current, and the historical, smoking and tobacco- related health factors from the [place] facility where the Encounter took place. Current Smoking Status This section includes the most current smoking, or tobacco-related health factor, from the [place] facility where the Encounter took place. Date/Time Current Smoking Status Comment Facil ity Jan 15, 2024 09:00 AM VA-TOBACCO FORMER USER [facility] Tobacco Use History This section includes a history of the smoking, or tobacco-related health factors, that were collected on or before the date of the Encounter. The data comes from the [place] facility where the Encounter took place. Date/Time Smoking Status/Tobacco Use Comment F acility Jan 15, 2024 09:00 AM VA-TOBACCO QUIT 15 YRS OR MORE [facility] Apr 30, 2022 01:00 PM VA-TOBACCO FORMER USER [facility] Apr 30, 2022 01:00 PM VA-TOBACCO QUIT 15 YRS OR MORE [facility] Mar 13, 2021 11:00 AM VA-TOBACCO FORMER USER [facility] Mar 13, 2021 11:00 AM VA-TOBACCO QUIT 15 YRS OR MORE [facility] Mar 24, 2018 11:33 AM QUIT TOBACCO >7 YEARS AGO [facility] Feb 11, 2018 02:19 PM QUIT TOBACCO >7 YEARS AGO [facility] Apr 07, 2008 09:34 AM QUIT TOBACCO >7 YEARS AGO [facility] Dec 23, 2007 03:21 PM QUIT TOBACCO >7 YEARS AGO [facility] Advance Directives: All historical and current Section Date Range: From patient's date of to the date document was created. This section includes ALL of a patient's completed or amended [place] Advance and Rescinded Directives. The entries below indicate that a directive exists for the patient, but an actual copy is not included with this document. The data comes from all [place] facilities. Date Advance Directives Provider Source Mar 17, 2017 ADVANCE DIRECTIVE ACOSTASEJAL SELLERS [facility] Radiology Reports: +/- 30 days of [...] the Encounter. The data comes from all [place] treatment facilities. Date/Time Radiology Report Provider Source Jan 14, 2025 08:48 AM OBSTRUCTIVE SERIES : MARIO MCLAUGHLIN [id number] -[id number] M Exm Date: JAN 14, 2025@08:48 Req Phys: LUPE FRANKS E III Pat Loc: PB-SATINDER PACT ECHO CHRIS (Req'g Lo Img Loc: PB-XRAY [facility] Service: [place] [address] (Case [id number] COMPLETE) OBSTRUCTIVE SERIES (RAD Detailed) CPT:35401 Reason for Study: diarrhea Clinical History: diarrhea x 4 weeks Report Status: Verified Date Reported: JAN 14, 2025 Date Verified: JAN 14, 2025 Oyster Opener E-Sig: Report: Multiple views of the abdomen [...] No acute process Primary Interpreting Staff: TARIQ PIERSON, RADIOLOGIST (Oyster Opener, no e-sig) /TARIQ Crawford [facility] Pathology Reports: +/- 30 days of [...] the Encounter. The data comes from all [facility] facilities. Date/Time Pathology Report Provider Source Jan 03, 2025 02:29 PM LR MICROBIOLOGY RE PORT: Accession [UID]: [id number] [[id number]] Received: Jan 03, 2025@14:29 Collection sample: STOOL Collection date: Jan 03, 2025 14:29 Site/Specimen: FECES Provider: ILIANA GOODEN Test(s) ordered: C&S STOOL..................... completed: Jan 08, 2025 10:27 * BACTERIOLOGY FINAL REPORT => Jan 08, 2025 11:12 TECH CODE: [id number] Bacteriology Remark(s): 01/06/25 [facility] Culture shows LIGHT GROWTH NORMAL ENTERIC VIKKI. There will be no work up. 01/07/25 [facility] CULTURE IN PROGRESS. 01/08/25 NO Aeromonas, Campylobacter, E.coli 0157, Plesiomonas, Salmonella, Shigella, or Yersinia isolated. CULTURE GREW USUAL ENTERIC VIKKI- NO ENTERIC PATHOGENS ISOLATED. CULTURE COMPLETE. =--=--=--=--=--=--=--=--=--=--= --=--=--=--=--=--=--=--=--=--=- -=--=--=--=--=-- Performing Laboratory: Bacteriology Report Performed By: [facility] CLIA# [id number] [address] [facility] [address] [place] [address] LISA GARCIA [facility] Encounter Notes: All associated encounter notes This section contains the clinical notes associated to the Encounter. Date/Time Encounter Note(s) Provider Source Jan 14, 2025 09:06 AM NURSING PROGRESS N OTE: LOCAL TITLE: NURSING NOTE PB STANDARD TITLE: NURSING PROGRESS NOTE DATE OF NOTE: JAN 14, 2025@09:06 ENTRY DATE: JAN 14, 2025@09:06:36 AUTHOR: GIOVANNY BERUMEN COSIGNER: URGENCY: STATUS: COMPLETED This is a 74 year old MALE with known Allergies as noted: Patient has answered NKA On the following Active Medications: Active Outpatient Medications (including Supplies): Active Outpatient Medications Status 1) ATORVASTATIN CALCIUM 20MG TAB TAKE ONE TABLET BY MOUTH EVERY ACTIVE EVENING Indication: FOR HIGH CHOLESTEROL 2) CETIRIZINE HCL 10MG TAB TAKE ONE TABLET BY MOUTH ONCE A DAY ACTIVE Indication: FOR ALLERGY SYMPTOMS 3) CITALOPRAM HYDROBROMIDE 20MG TAB TAKE ONE TABLET BY MOUTH ACTIVE EVERY MORNING Indication: FOR ANXIETY 4) DONEPEZIL HCL 10MG TAB TAKE ONE TABLET BY MOUTH AT BEDTIME ACTIVE (JUST BEFORE BEDTIME) Indication: FOR DEMENTIA 5) FINASTERIDE 5MG TAB TAKE ONE TABLET BY MOUTH ONCE A DAY ACTIVE SWALLOW WHOLE, DO NOT CRUSH, SPLIT, OR CHEW. Indication: FOR BENIGN PROSTATIC HYPERPLASIA 6) MEMANTINE HCL 10MG TAB TAKE ONE TABLET BY MOUTH EVERY ACTIVE (S) MORNING AND TAKE ONE TABLET EVERY EVENING 7) MONTELUKAST NA 10MG TAB TAKE ONE TABLET BY MOUTH EVERY ACTIVE EVENING 8) SILDENAFIL CITRATE 100MG TAB TAKE ONE TABLET BY MOUTH EVERY ACTIVE WEEK NEEDED FOR ERECTILE DYSFUNCTION (TAKE 60 MINUTES PRIOR TO SEXUAL ACTIVITY) - LIMIT 4 DOSES PER 30 DAYS 9) TAMSULOSIN HCL 0.4MG CAP TAKE ONE CAPSULE BY MOUTH EVERY ACTIVE EVENING APPROXIMATELY 30 MINUTES AFTER THE SAME MEAL EACH DAY (FOR PROSTATE) Active Non-VA Medications Status 1) Non-VA CHOLECALCIF 50MCG (D3-2,000UNIT) TAB 50MCG BY MOUTH ACTIVE ONCE A DAY 10 Total Medications C/C: Diarrhea x 4 weeks S: presents to the clinic as a walk-in. represents with complaints of continued diarrhea for approx. the last 4 weeks. [place] reports he has approx. 4 brown liquid stools per day and they occur after eating. reports occasional abdominal cramping. has been taking LA model with minimal relief. denies fever, [place] has completed fecal testing with positive leukocytes noted. Gus negative. Parasite test in not resulted yet. was also given a 5 day supply of cipro which he completed with no improvement. O/A: [place] ambulated to exam room with steady gait and no assistance. [place] alert and oriented x4 with unlabored breathing. Abdomen is soft nontender with hypoactive bowels sounds. Vital Signs: WNL Weight: 221.9 pounds P: Reviewed with Provider. Escalated to Provider visit. Provider assessed at chairside. Provider ordered Obstructive series, Xray obtained and reviewed by Provider. Immediate need called and form given to [place] Along with written script for Flagyl. Educated on the BRAT diet and hydration. advised to complete all medication even if symptoms improve. Advised OK to use OTC antidiarrheal. [place] to alert PACT team in one week to discuss if symptoms improved with Flagyl, voiced understanding and all questions and concerns addressed at this time. RTC: Advised [place] to return to clinic as needed or report to ER if symptoms worsen. Per A Directive 1605.06, wristband documentation: Patient wristband was removed and destroyed by (staff name) Giovanny Berumen and placed in the designated [employer] bin. /es/ Giovanny Berumen RN BSN [facility] Signed: 01/14/2025 09:49 Receipt Acknowledged By: * AWAITING SIGNATURE * LUPE FRANKS III, ANDREA D [facility]
--- OUTSIDE RECORDS SUMMARY | 2025-02-10 06:59 | XMS_ITS | Encounter Summary ---
Author Name [facility] [place] Organization [place] Address [address] [place] [address] Care Team Providers Care Endocrinology Nurse Name Role Phone GIACOMOILIANA MAGAÑA Primary Care [...] PART A Jul 24, 2016 PART A [id number] MARIO KIRAN PATIENT MEDICARE (WNR) MEDICARE (M) PART A Jul 24, 2016 PART A [id number] MARYCLARKEMARIO PATIENT Selected Encounter This section includes the information on record at [place] for the Encounter. Date/Time Encounter Type Encounter Description Reason Pro vider Source Feb 10, 2025 11:59 AM Outpatient Encounter COMMUNITY CARE CONSULT IHE Encounter Template Text not used by [facility] Plan of Treatment: Future Appointments (+ 6 months) and Future Tests (+/- 45 days) The Plan of Treatment section includes future care activities for the patient from all [place] [facility]. This section includes future appointments and future orders which are active, pending or scheduled. Future Appointments This section includes appointments that were scheduled to occur 6 months from the date of the Encounter, up to a maximum of 20 appointments. The data comes from all [facility]. Appointment Date/Time Appointment Type Appointme nt Facility Name Feb 17, 2025 01:30 PM AMBULATORY - MEDICINE [facility] Feb 25, 2025 11:30 AM AMBULATORY - NONE [place] [facility] [facility] Mar 02, 2025 01:30 PM AMBULATORY - MEDICINE [place] [facility] Mar 03, 2025 11:30 AM AMBULATORY - MEDICINE [place] [facility] Active, Pending, and Scheduled Orders This section includes a listing of several types of active, pending, and scheduled orders, including clinic medications orders, diagnostic test orders, procedure orders and consult orders; where the start date of the order is 45 days before the date of the Encounter or 45 days after the date of the Encounter. The data comes from all [facility]. Test Date/Time Test Type Test Details Facility Name Dec 27, 2024 01:54 PM Consult Order COMMUNITY CARE-NEUROLOGY 657A4 Cons Skinning Machine [facility]eder[facility] Dec 30, 2024 12:00 AM Laboratory - Chemi stry Order POC UA (STL-PB-MA) URINE SP [facility] Jan 03, 2025 12:36 PM Consult Order [facility]-OPTOMETRY ROUTINE 657A4 Cons Skinning Machine Feeder[facility] Jan 28, 2025 12:34 PM Consult Order [facility]-GI GENERAL 657A4 Cons Skinning Machine [facility]eder[facility] Feb 17, 2025 01:34 PM Procedure Order CP EKG PB CP MUSE EKG POP 657A4 Proc Skinning Machine Feeder[facility] Feb 17, 2025 01:54 PM Consult Order [facility]-EMERGENCY ROOM 657A4 Cons Skinning Machine Feeder[facility] Feb 25, 2025 12:00 AM Imaging - CT Scan Order CT ABD W&W/O -CT PELVIS W/CONTRAST -P [facility] Lab Results: +/- 30 days of the encounter This section includes the Chemistry and Hematology Lab Results on record with [place] for the patient. Radiology Reports and Pathology Reports are provided separately, in subsequent sections. Lab Results This section contains the Chemistry/Hematology Results that were resulted 30 days before or 30 daysafter the date of the Encounter. Date/Time Source Result Type Result - Unit Interpretation Reference Range Specimen Type Comment Feb 11, 2025 11:14 AM [facility] COMPREHENSIVE METABOLIC PANEL PLASMA Specimen Type: PLASMA No comment entered. Ordering Provider: LUPE FRANKS III Report Released Date/Time: Feb 10, 2025 11:38 AM Reporting Lab: [place] [facility] [address] [facility] [address] Performing Lab: [place] [facility] [address] [facility] [address] CREATININE 1.06 mg/dL 0.7-1.3 UREA NITROGEN 9 [...] 2020) 74 Jan 14, 2025 09:01 AM [facility] NGGADZSTZ-ABEGY-7,3-GALACTOSE IGE SERUM Speci men Type: SERUM Comment: REFERENCE RANGE: <0.10 kU/L Results above 0.1 kU/L indicate an allergen-specific IgE sensitization to bpfmjtsrn-w-8,3-galactose, and such patients are at risk for [...] method. Additional information can be found at http://www.ivWatch Test performed by [facility] [address] [place] [address] Main Galley Scullion: Atiya Marie MD,PHD,CY Test Reported by [facility], [employer] [facility], [id number] [place] [address] Edi Bansal M.D., Ph.D., Director of Laboratories , CLIA [id number] Ordering Provider: LUPE FRANKS III Report Released Date/Time: Jan 14, 2025 08:46 AM Reporting Lab: [place] [facility] [address] [facility] [address] Performing Lab: [place] [id number] [facility] FYIUNVTCI-KXLXY-6,3-GALACTOSE IGE <0.10 kU/L SEE BELOW Jan 14, 2025 09:01 AM [facility] COMPREHENSIVE METABOLIC PANEL PLASMA Specimen Type: PLASMA No comment entered. Ordering Provider: LUPE FRANKS III Report Released Date/Time: Jan 14, 2025 08:46 AM Reporting Lab: [place] [facility] [address] [place] [address] Performing Lab: [place] [facility] [address] [facility] [address] CREATININE 1.04 mg/dL 0.7-1.3 UREA NITROGEN 18 [...] 2020) 76 Jan 14, 2025 09:01 AM [facility] CBC BLOOD Specimen Type: BLOOD No comment entered. Ordering Provider: LUPE FRANKS III Report Released Date/Time: Jan 14, 2025 08:46 AM Reporting Lab: [place] [facility] [address] [place] [address] Performing Lab: [place] [facility] [address] [place] [address] WBC 5.7 10*3/uL 3.6-11.2 RBC 5.00 10*6/uL [...] GRANS, AUTO ABS 0.01 10*3/uL 0. 00-0.05 Social History: Smoking Status (Most current) and Tobacco Use (All prior to encounter date) This section includes the most current, and the historical, smoking and tobacco- related health factors from the [place] facility where the Encounter took place. Current Smoking Status This section includes the most current smoking, or tobacco-related health factor, from the [place] facility where the Encounter took place. Date/Time Current Smoking Status Comment Alem willis Apr 15, 2008 09:49 AM LIFETIME NON-USER OF TOBACCO [facility] Advance Directives: All historical and current Section Date Range: From patient's date of to the date document was created. This section includes ALL of a patient's completed or amended [place] Advance and Rescinded Directives. The entries below indicate that a directive exists for the patient, but an actual copy is not included with this document. The data comes from all [place] facilities. Date Advance Directives Provider Source Mar 17, 2017 ADVANCE DIRECTIVE SEJAL ACOSTA [facility] Radiology Reports: +/- 30 days of [...] the Encounter. The data comes from all [place] treatment facilities. Date/Time Radiology Report Provider Source Jan 14, 2025 08:48 AM OBSTRUCTIVE SERIES : MARIO KIRAN [id number] -1950 M Exm Date: JAN 14, 2025@08:48 Req Phys: LUPE FRANKS E III Pat Loc: PB-SATINDER PACT ECHO CHRIS (Req'g Lo Img Loc: PB-XRAY [place] Service: [place] [address] (Case [id number] COMPLETE) OBSTRUCTIVE SERIES (RAD Detailed) CPT:35727 Reason for Study: diarrhea Clinical History: diarrhea x 4 weeks Report Status: Verified Date Reported: JAN 14, 2025 Date Verified: JAN 14, 2025 Log Turner E-Sig: Report: Multiple views of the abdomen [...] process Primary Interpreting Staff: TARIQ PIERSON RADIOLOGIST (Log Turner, no e-sig) /TARIQ Crawford [facility] Encounter Notes: All associated encounter notes This section contains the clinical notes associated to the Encounter. Date/Time Encounter Note(s) Provider Source Feb 10, 2025 11:59 AM LETTERS: LOCAL TITLE: COMMUNITY CARE-REFERRAL PB (AUTO-PRINT) STANDARD TITLE: LETTERS DATE OF NOTE: FEB 10, 2025@11:59:36 ENTRY DATE: FEB 10, 2025@11:59:36 AUTHOR: SENA BURGOS COSIGNER: URGENCY: STATUS: COMPLETED Mario Kiran [address] [place], [place] [address] Dear MARIO KIRAN, Your VA provider has referred you to a provider within the community for care. Your medical care for GI GENERAL has been authorized with the Community Care Provider listed below. DO NOT REPORT TO THE [place] [facility] Provider info: An appointment has been scheduled for you on: Mar 03, 2025 11:30 AM Office Name: [facility] Address: [address] [place] [address] Address: [place] [address] Auth #: [id number] Referral Issue Date: 02/01/25 Expiration Date: 03/03/26 If you are unable to keep this appointment or the appointment is no longer needed, please contact the community provider above for notification/rescheduling and then call the [facility] [place] Community Care Office at [phone] Ext [phone]. If you need additional care/services not mentioned above, please contact your primary care provider for a new referral. Co-Payments: If you are required to pay a VA co-payment, you will be billed by the VA for each authorized visit that you attend. However, you are NOT REQUIRED to make co-payments to a Community Provider. Prescriptions: Your community provider may write a prescription related to the authorized care. If there is an immediate need for your prescriptions from your community care visit, you may be able to get up to a 14-day fill of your prescription at your own expense for the cost of the medication, and may seek reimbursement from the VA. If you require more than a 14-day supply or if the prescribed medication is not immediately needed, your community provider will send a prescription to a VA pharmacy so that the VA can provide you with your routine medication. In-network locations can be found at https://www.va.gov/find-loc ations/ Medical Devices: Your community provider may recommend that medical devices, adapted equipment, or other items be provided for the treatment or rehabilitation of your medical condition. Veterans are generally required to obtain these items through the Prosthetics and Sensory Aids Service (PSAS) in your referring facility. Emergency/Inpatient Services: You, your community provider, or your family must provide notification within 72hr or ER visit and/or admission by [phone]. Thank you for the opportunity to serve you and for your service to our great nation! NETTIE Ceronhing [facility] Care in the Community [address] [facility] [place] [address] SENA BURGOS [facility]
--- OUTSIDE RECORDS SUMMARY | 2025-02-10 10:56 | XMS_ITS ---
Author Name [facility] [place] Address [address] [place] [address] Care Team Providers Care Composer Teaching Artist Name Role Phone ILIANA GOODEN Primary Care [...] PART A Jul 24, 2016 PART A [id number] 15A LISSETTEMARIO PATIENT MEDICARE (WNR) MEDICARE (M) PART A Jul 24, 2016 PART A [id number] [phone] MARIO MCLAUGHLIN PATIENT Selected Encounter This section includes the information on record at [place] for the Encounter. Date/Time Encounter Type Encounter Description Reason Pro vider Source Feb 10, 2025 03:56 PM Outpatient Encounter ADMIN PAT ACTIVTIES (MASNONCT) IHE Encounter Template Text not used by [place] Plan of Treatment: Future Appointments (+ 6 months) and Future Tests (+/- 45 days) The Plan of Treatment section includes future care activities for the patient from all [place] [facility]. This section includes future appointments and future orders which are active, pending or scheduled. Future Appointments This section includes appointments that were scheduled to occur 6 months from the date of the Encounter, up to a maximum of 20 appointments. The data comes from all [facility]. Appointment Date/Time Appointment Type Appointme nt Facility Name Feb 17, 2025 01:30 PM AMBULATORY - MEDICINE [facility] Feb 25, 2025 11:30 AM AMBULATORY - NONE [facility] [facility] Mar 02, 2025 01:30 PM AMBULATORY - MEDICINE [place] [facility] Mar 03, 2025 11:30 AM [facility] Active, Pending, and Scheduled Orders This section includes a listing of several types of active, pending, and scheduled orders, including clinic medications orders, diagnostic test orders, procedure orders and consult orders; where the start date of the order is 45 days before the date of the Encounter or 45 days after the date of theEncounter. The data comes from all [facility]. Test Date/Time Test Type Test Details Facility Name Dec 27, 2024 01:54 PM Consult Order COMMUNITY CARE-NEUROLOGY [id number] Cons Assistant Unit [facility] Dec 30, 2024 12:00 AM Laboratory - Chemi stry Order POC UA (STL-PB-MA) URINE SP [facility] Jan 03, 2025 12:36 PM Consult Order COMMUNITY [facility]-OPTOMETRY ROUTINE [id number] Cons Assistant Unit [facility] Jan 28, 2025 12:34 PM Consult Order COMMUNITY [facility]-GI GENERAL [id number] Cons Assistant Unit [facility] Feb 17, 2025 01:34 PM Procedure Order CP EKG PB CP MUSE EKG POP 657A4 Proc Assistant Unit [facility] Feb 17, 2025 01:54 PM Consult Order COMMUNITY [facility]-EMERGENCY ROOM 657A4 Cons Assistant Unit [facility] Feb 25, 2025 12:00 AM Imaging - CT Scan Order CT ABD W&W/O -CT PELVIS W/CONTRAST -P [facility] Lab Results: +/- 30 days of the encounter This section includes the Chemistry and Hematology Lab Results on record with [place] for the patient. Radiology Reports and Pathology Reports are provided separately, in subsequent sections. Lab Results This section contains the Chemistry/Hematology Results that were resulted 30 days before or 30 daysafter the date of the Encounter. Date/Time Source Result Type Result - Unit Interpretation Reference Range Specimen Type Comment Feb 11, 2025 11:14 AM [facility] COMPREHENSIVE METABOLIC PANEL PLASMA Specimen Type: PLASMA No comment entered. Ordering Provider: LUPE FRANKS III Report Released Date/Time: Feb 10, 2025 11:38 AM Reporting Lab: [place] [facility] [address] [facility] [place] [facility] [address] Performing Lab: [place] [facility] [address] [facility] [address] CREATININE 1.06 mg/dL 0.7-1.3 UREA NITROGEN 9 [...] 2020) 74 Jan 14, 2025 09:01 AM [facility] HFMINXLGP-OHYML-6,3-GALACTOSE IGE SERUM Speci men Type: SERUM Comment: REFERENCE RANGE: <0.10 kU/L Results above 0.1 kU/L indicate an allergen-specific IgE sensitization to behobwcyw-f-2,3-galactose, and such patients are at risk for [...] method. Additional information can be found at http://www.[employer] Test performed by [facility] [address] [place] [address] Paper And Prints Restorer: Atiya Marie MD,PHD,CY Test Reported by [facility], [facility], [id number] [place] [address] Edi Bansal M.D., Ph.D., Director of Laboratories , [facility] [id number] Ordering Provider: LUPE FRANKS III Report Released Date/Time: Jan 14, 2025 08:46 AM Reporting Lab: [place] [facility] [address] [place] [facility] [address] Performing Lab: [place] [id number] [facility] XPINTIVNP-HTEIB-2,3-GALACTOSE IGE <0.10 kU/L SEE BELOW Jan 14, 2025 09:01 AM [facility] COMPREHENSIVE METABOLIC PANEL PLASMA Specimen Type: PLASMA No comment entered. Ordering Provider: LUPE FRANKS III Report Released Date/Time: Jan 14, 2025 08:46 AM Reporting Lab: [place] [facility] [address] [facility] [place] [facility] [address] Performing Lab: [place] [facility] [address] [facility] [address] CREATININE 1.04 mg/dL 0.7-1.3 UREA NITROGEN 18 [...] 2020) 76 Jan 14, 2025 09:01 AM [facility] CBC BLOOD Specimen Type: BLOOD No comment entered. Ordering Provider: LUPE FRANKS III Report Released Date/Time: Jan 14, 2025 08:46 AM Reporting Lab: [place] [facility] [address] [facility] [place] [facility] [address] Performing Lab: [place] [facility] [address] [facility] [address] WBC 5.7 10*3/uL 3.6-11.2 RBC 5.00 10*6/uL [...] and tobacco- related health factors from the [place] facility where the Encounter took place. Current Smoking Status This section includes the most current smoking, or tobacco-related health factor, from the [place] facility where the Encounter took place. Date/Time Current Smoking Status Comment Facil ity Apr 15, 2008 09:49 AM LIFETIME NON-USER OF TOBACCO [facility] Advance Directives: All historical and current Section Date Range: From patient's date of to the date document was created. This section includes ALL of a patient's completed or amended [place] Advance and Rescinded Directives. The entries below indicate that a directive exists for the patient, but an actual copy is not included with this document. The data comes from all [place] facilities. Date Advance Directives Provider Source Mar 17, 2017 ADVANCE DIRECTIVE ACOSTASEJAL SELLERS [facility] Radiology Reports: +/- 30 days [...] the Encounter. The data comes from all [place] treatment facilities. Date/Time Radiology Report Provider Source Jan 14, 2025 08:48 AM OBSTRUCTIVE SERIES : MARIO MCLAUGHLIN [id number] -1950 M Exm Date: JAN 14, 2025@08:48 Req Phys: LUPE FRANKS E III Pat Loc: PB-SATINDER PACT ECHO CHRIS (Req'g Lo Img Loc: PB-XRAY [place] [facility] Service: [place] [address] (Case [id number] COMPLETE) OBSTRUCTIVE SERIES (RAD Detailed) CPT:80214 Reason for Study: diarrhea Clinical History: diarrhea x 4 weeks Report Status: Verified Date Reported: JAN 14, 2025 Date Verified: JAN 14, 2025 Turn Machine Operator E-Sig: Report: Multiple views of the abdomen [...] process Primary Interpreting Staff: TARIQ PIERSON RADIOLOGIST (Turn Machine Operator, no e-sig) /TARIQ [place] [facility] [place] [facility] Encounter Notes: All associated encounter notes This section contains the clinical notes associated to the Encounter. Date/Time Encounter Note(s) Provider Source Feb 10, 2025 03:56 PM ADMINISTRATIVE NOT E: LOCAL TITLE: ADMINISTRATIVE NOTE PB STANDARD TITLE: ADMINISTRATIVE NOTE DATE OF NOTE: FEB 10, 2025@15:56 ENTRY DATE: FEB 10, 2025@15:56:42 AUTHOR: AYAZ GOMEZ EXP COSIGNER: URGENCY: STATUS: COMPLETED This A[facility] contacted the concerning his scheduled appointment with [facility], originally scheduled February 14, 2025. This A[facility] advised [facility] has had a family emergency and will be out of the clinic for an unknown amount of time, this AMSA advised I would like to call back to reschedule the appointment once I know what our coverage is going to be for [facility] for the next several weeks. advised he would like to come into the clinic tomorrow to fill out a change of Provider form. Order discontinued. /es/ AYAZ GOMEZ AMSA Signed: 02/10/2025 15:57 AYAZ GOMEZ [facility]
--- OUTSIDE RECORDS SUMMARY | 2025-02-17 09:31 | XMS_ITS | Continuity of Care Document ---
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 OR BLOOD BY CREATININE- BASED FORMULA (CKD-EPI 2020) 76 01/14 Specimen Type: PLASMA No comment entered. Ordering Provider: MOLLY FRANKS R E III Report Released Date/Time: Jan 14, 2025 08:46 AM Reporting Lab: [place] [facility] [address] [place] [address] Performing Lab: [place] [facility] [address] [place] [address] [facility] CBC LEUKOCYTES [#/VOLUME] IN BLOOD BY AUTOMATED COUNT 5.7 10*3/uL 3.6 - 11.2 01/14 Specimen Type: BLOOD No comment entered. Ordering Provider: MOLLY FRANKS R E III Report Released Date/Time: Jan 14, 2025 08:46 AM Reporting Lab: [place] [facility] [address] [place] [address] Performing Lab: [place] [facility] [address] [place] [address] [facility] CBC ERYTHROCYTE S [#/VOLUME] IN BLOOD BY AUTOMATED COUNT 5.00 10*6/uL 4.10 - 5.70 01/14 Specimen Type: BLOOD No comment entered. Ordering Provider: MOLLY FRANKS R E III Report Released Date/Time: Jan 14, 2025 08:46 AM Reporting Lab: [place] [facility] [address] [place] [address] Performing Lab: [place] [facility] [address] [place] [address] [facility] CBC HEMOGLOBIN [MASS/VOLUM E] IN BLOOD 13.9 g/dL 13.1 - 16.8 01/14 Specimen Type: BLOOD No comment entered. Ordering Provider: MOLLY FRANKS R E III Report Released Date/Time: Jan 14, 2025 08:46 AM Reporting Lab: [place] [facility] [address] [place] [address] Performing Lab: [place] [facility] [address] [place] [address] [facility] CBC HEMATOCRIT [VOLUME FRACTION] OF BLOOD 41.8 38.2 - 48.4 01/14 Specimen Type: BLOOD No comment entered. Ordering Provider: MOLLY FRANKS R E III Report Released Date/Time: Jan 14, 2025 08:46 AM Reporting Lab: [place] [facility] [address] [place] [facility] Performing Lab: [place] [facility] [address] [place] [address] [facility] CBC MCV [ENTITIC VOLUME] BY AUTOMATED COUNT 83.6 fL 80.0 - 100.0 01/14 Specimen Type: BLOOD No comment entered. Ordering Provider: MOLLY FRANKS R E III Report Released Date/Time: Jan 14, 2025 08:46 AM Reporting Lab: [place] [facility] [address] [place] [address] Performing Lab: [place] [facility] [address] [place] [address] [facility] CBC MCH [ENTITIC MASS] BY AUTOMATED COUNT 27.8 pg 27.0 - 34.0 01/14 Specimen Type: BLOOD No comment entered. Ordering Provider: MOLLY FRANKS R E III Report Released Date/Time: Jan 14, 2025 08:46 AM Reporting Lab: [place] [facility] [address] [place] [address] Performing Lab: [place] [facility] [address] [place] [address] [facility] CBC MCHC [MASS/VOLUM E] BY AUTOMATED COUNT 33.3 g/dL 33.0 - 36.0 01/14 Specimen Type: BLOOD No comment entered. Ordering Provider: MOLLY FRANKS R E III Report Released Date/Time: Jan 14, 2025 08:46 AM Reporting Lab: [place] [facility] [address] [place] [address] Performing Lab: [place] [facility] [address] [place] [address] [facility] CBC PLATELETS [#/VOLUME] IN BLOOD BY AUTOMATED COUNT 186 10*3/uL 150 - 400 01/14 Specimen Type: BLOOD No comment entered. Ordering Provider: MOLLY FRANKS R E III Report Released Date/Time: Jan 14, 2025 08:46 AM Reporting Lab: [place] [facility] [address] [place] [address] Performing Lab: [place] [facility] [address] [place] [id number] [facility] CBC PLATELET MEAN VOLUME [ENTITIC VOLUME] IN BLOOD BY AUTOMATED COUNT 10.0 fL 7.5 - 11.2 01/14 Specimen Type: BLOOD No comment entered. Ordering Provider: MOLLY FRANKS R E III Report Released Date/Time: Jan 14, 2025 08:46 AM Reporting Lab: [place] [facility] [address] [place] [address] Performing Lab: [place] [facility] [address] [place] [facility] [facility] CBC ERYTHROCYTE DISTRIBUTIO N WIDTH [RATIO] BY AUTOMATED COUNT 13.2 11.8 - 15.1 01/14 Specimen Type: BLOOD No comment entered. Ordering Provider: MOLLY FRANKS R E III Report Released Date/Time: Jan 14, 2025 08:46 AM Reporting Lab: [place] [facility] [address] [place] [facility] Performing Lab: [place] [facility] [address] [place] [address] [facility] CBC LYMPHOCYTES /100 LEUKOCYTES IN BLOOD BY AUTOMATED COUNT 25.7 01/14 Specimen Type: BLOOD No comment entered. Ordering Provider: MOLLY FRANKS R E III Report Released Date/Time: Jan 14, 2025 08:46 AM Reporting Lab: [place] [facility] [address] [place] [address] Performing Lab: [place] [facility] [address] [place] [address] [facility] [place] [facility] CBC MONOCYTES/1 00 LEUKOCYTES IN BLOOD BY AUTOMATED COUNT 12.6 01/14 Specimen Type: BLOOD No comment entered. Ordering Provider: MOLLY FRANKS R E III Report Released Date/Time: Jan 14, 2025 08:46 AM Reporting Lab: [place] [facility] [address] [place] [address] Performing Lab: [place] [facility] [address] [place] [address] [place] [facility] CBC NEUTROPHILS /100 LEUKOCYTES IN BLOOD BY AUTOMATED COUNT 60.3 01/14 Specimen Type: BLOOD No comment entered. Ordering Provider: MOLLY FRANKS R E III Report Released Date/Time: Jan 14, 2025 08:46 AM Reporting Lab: [place] [facility] [address] [place] [address] Performing Lab: [place] [facility] [address] [place] [address] [place] [facility] CBC EOSINOPHILS /100 LEUKOCYTES IN BLOOD BY AUTOMATED COUNT 0.9 01/14 Specimen Type: BLOOD No comment entered. Ordering Provider: MOLLY FRANKS R E III Report Released Date/Time: Jan 14, 2025 08:46 AM Reporting Lab: [place] [facility] [address] [place] [address] Performing Lab: [place] [facility] [address] [place] [address] [place] [facility] CBC BASOPHILS/1 00 LEUKOCYTES IN BLOOD BY AUTOMATED COUNT 0.3 01/14 Specimen Type: BLOOD No comment entered. Ordering Provider: MOLLY FRANKS R E III Report Released Date/Time: Jan 14, 2025 08:46 AM Reporting Lab: [place] [facility] [address] [place] [facility] Performing Lab: [place] [facility] [address] [place] [address] [facility] CBC LYMPHOCYTES [#/VOLUME] IN BLOOD BY AUTOMATED COUNT 1.47 10*3/uL 0.77 - 4.50 01/14 Specimen Type: BLOOD No comment entered. Ordering Provider: MOLLY FRANKS R E III Report Released Date/Time: Jan 14, 2025 08:46 AM Reporting Lab: [place] [facility] [address] [place] [address] [place] [address] Performing Lab: [place] [facility] [address] [place] [address] [facility] CBC MONOCYTES [#/VOLUME] IN BLOOD BY AUTOMATED COUNT 0.72 10*3/uL 0.19 - 0.8 01/14 Specimen Type: BLOOD No comment entered. Ordering Provider: MOLLY FRANKS R E III Report Released Date/Time: Jan 14, 2025 08:46 AM Reporting Lab: [place] [facility] [address] [place] [address] Performing Lab: [place] [facility] [address] [place] [address] [facility] CBC NEUTROPHILS [#/VOLUME] IN BLOOD BY AUTOMATED COUNT 3.46 10*3/uL 2.10 - 8.00 01/14 Specimen Type: BLOOD No comment entered. Ordering Provider: MOLLY FRANKS R E III Report Released Date/Time: Jan 14, 2025 08:46 AM Reporting Lab: [place] [facility] [address] [place] [address] Performing Lab: [place] [facility] [address] [place] [address] [facility] CBC EOSINOPHILS [#/VOLUME] IN BLOOD BY AUTOMATED COUNT 0.05 10*3/uL 0.00 - 0.60 01/14 Specimen Type: BLOOD No comment entered. Ordering Provider: MOLLY FRANKS R E III Report Released Date/Time: Jan 14, 2025 08:46 AM Reporting Lab: [place] [facility] [address] [place] [facility] Performing Lab: [place] [facility] [address] [place] [id number] [facility] CBC BASOPHILS [#/VOLUME] IN BLOOD BY AUTOMATED COUNT 0.02 10*3/uL 0.00 - 0.20 01/14 Specimen Type: BLOOD No comment entered. Ordering Provider: MOLLY FRANKS R E III Report Released Date/Time: Jan 14, 2025 08:46 AM Reporting Lab: [place] [facility] [address] [place] [address] Performing Lab: [place] [facility] [address] [place] [address] [facility] CBC IMMATURE GRANULOCYTE S/100 LEUKOCYTES IN BLOOD BY AUTOMATED COUNT 0.2 01/14 Specimen Type: BLOOD No comment entered. Ordering Provider: MOLLY FRANKS R E III Report Released Date/Time: Jan 14, 2025 08:46 AM Reporting Lab: [place] [facility] [address] [place] [address] Performing Lab: [place] [facility] [address] [place] [address] [facility] CBC IMMATURE GRANULOCYTE S [#/VOLUME] IN BLOOD BY AUTOMATED COUNT 0.01 10*3/uL 0.00 - 0.05 01/14 Specimen Type: BLOOD No comment entered. Ordering Provider: MOLYL FRANKS R E III Report Released Date/Time: Jan 14, 2025 08:46 AM Reporting Lab: [place] [facility] [address] [place] [address] Performing Lab: [place] [facility] [address] [place] [address] [facility] OVA & PARASITE, STOOL (PB) OVA AND PARASITES IDENTIFIED IN STOOL BY CONCENTRATI ON comment 01/03 Specimen Type: FECES Comment: OVA AND PARASITES, CONCENTRATE AND PERMANENT SMEAR EXAMINATION FOR OVA AND PARASITES SOURCE : [id number] RESULT/COMM ENT: It is controversi al whether identificat ion of Blastocysti s in the stool requires treatment. In a symptomatic patient, isolation of cysts in stool specimens should trigger a thorough evaluation for other causes of the patient's gastrointes tinal tract complaints, given the possibility for co-infectio n with other pathogens. ----- 1. Few Blastocysti s hominis Reference Range: No Ova and Parasites seen Routine Ova and Parasite Exam may not detect some parasites that occasionall y cause diarrheal illness. Cryptospori dium Antigen and/or Cyclospora and Isospora Exam may be ordered to detect these parasites. One negative sample does not necessarily rule out the presence of a parasitic infection. Assay performed by wet mount after concentrati on. PARASITE EXAM, TRICHROME STAIN For additional information , please refer to https://GoLive! Mobile/faq/F [email or web address] (This link is being provided for information al/ educational purposes only.) Test Per[facility] by [facility], [employer] [facility], [address] [place] [address] Edi Bansal M.D., Ph.D., Director of Laboratorie s , [place] [id number] Ordering Provider: COURTNEY GOODEN Report Released Date/Time: Jan 03, 2025 09:00 AM Reporting Lab: [facility] [address] [facility] [address] Performing Lab: [place] [id number] [facility] C DIFF EPI PCR PNL CLOSTRIDIOI MARK DIFFICILE [id number] STRAIN DNA [PRESENCE] IN STOOL BY RIGOBERTO WITH PROBE DETECTION Presumpt poli Negative 01/03 Specimen Type: FECES Comment: OVA AND PARASITES, CONCENTRATE AND PERMANENT SMEAR EXAMINATION FOR OVA AND PARASITES SOURCE : [id number] RESULT/COMM ENT: It is controversi al whether identificat ion of Blastocysti s in the stool requires treatment. In a symptomatic patient, isolation of cysts in stool specimens should trigger a thorough evaluation for other causes of the patient's gastrointes tinal tract complaints, given the possibility for co-infectio n with other pathogens. ----- 1. Few Blastocysti s hominis Reference Range: No Ova and Parasites seen Routine Ova and Parasite Exam may not detect some parasites that occasionall y cause diarrheal illness. Cryptospori dium Antigen and/or Cyclospora and Isospora Exam may be ordered to detect these parasites. One negative sample does not necessarily rule out the presence of a parasitic infection. Assay performed by wet mount after concentrati on. PARASITE EXAM, TRICHROME STAIN For additional information , please refer to https://GoLive! Mobile/faq/F [email or web address] (This link is being provided for information al/ educational purposes only.) Test Performed by [facility], [employer] [facility], [address] [place] [address] Edi Bansal M.D., Ph.D., Director of Laboratorie s , [place] [id number] Ordering Provider: COURTNEY GOODEN Report Released Date/Time: Jan 03, 2025 09:00 AM Reporting Lab: [facility] [address] [place] [id number] Performing Lab: [facility] [address] [facility] [address] [facility] C DIFF EPI PCR PNL CLOSTRIDIOI MARK DIFFICILE TOXIN GENES [PRESENCE] IN STOOL BY RIGOBERTO WITH PROBE DETECTION Negative 01/03 Specimen Type: FECES Comment: OVA AND PARASITES, CONCENTRATE AND PERMANENT SMEAR EXAMINATION FOR OVA AND PARASITES SOURCE : [id number] RESULT/COMM ENT: It is controversi al whether identificat ion of Blastocysti s in the stool requires treatment. In a symptomatic patient, isolation of cysts in stool specimens should trigger a thorough evaluation for other causes of the patient's gastrointes tinal tract complaints, given the possibility for co-infectio n with other pathogens. ----- 1. Few Blastocysti s hominis Reference Range: No Ova and Parasites seen Routine Ova and Parasite Exam may not detect some parasites that occasionall y cause diarrheal illness. Cryptospori dium Antigen and/or Cyclospora and Isospora Exam may be ordered to detect these parasites. One negative sample does not necessarily rule out the presence of a parasitic infection. Assay performed by wet mount after concentrati on. PARASITE EXAM, TRICHROME STAIN For additional information , please refer to https://GoLive! Mobile/faq/F [email or web address] (This link is being provided for information al/ educational purposes only.) Test Performed by [facility] [employer] [facility], [employer], [address] [place] [address] Edi Bansal M.D., Ph.D., Director of Laboratorie s , CLIA [id number] Ordering Provider: COURTNEY GOODEN Report Released Date/Time: Jan 03, 2025 09:00 AM Reporting Lab: [place] [facility] [address] [facility] [address] [place] [facility] [address] Performing Lab: [facility] [address] [facility] [place] [facility] [address] [facility] FECAL LEUKOCYTE S (PB) HEMOGLOBIN. GASTROINTES TINAL.LOWER [PRESENCE] IN STOOL BY IMMUNOASSAY --2ND SPECIMEN POSITIVE 01/03 Specimen Type: FECES Comment: OVA AND PARASITES, CONCENTRATE AND PERMANENT SMEAR EXAMINATION FOR OVA AND PARASITES SOURCE : [id number] RESULT/COMM ENT: It is controversi al whether identificat ion of Blastocysti s in the stool requires treatment. In a symptomatic patient, isolation of cysts in stool specimens should trigger a thorough evaluation for other causes of the patient's gastrointes tinal tract complaints, given the possibility for co-infectio n with other pathogens. ----- 1. Few Blastocysti s hominis Reference Range: No Ova and Parasites seen Routine Ova and Parasite Exam may not detect some parasites that occasionall y cause diarrheal illness. Cryptospori dium Antigen and/or Cyclospora and Isospora Exam may be ordered to detect these parasites. One negative sample does not necessarily rule out the presence of a parasitic infection. Assay performed by wet mount after concentrati on. PARASITE EXAM, TRICHROME STAIN For additional information , please refer to [email or web address] cation.Idea Device/faq/F [email or web address] (This link is being provided for information al/ educational purposes only.) Test Performed by [facility], [employer] [facility], [address] [place] [address] Edi Bansal M.D., Ph.D., Director of Laboratorie s , CLIA [id number] Ordering Provider: COURTNEY GOODEN Report Released Date/Time: Jan 03, 2025 09:00 AM Reporting Lab: [place] [facility] [address] [place] [address] Performing Lab: [place] [facility] [address] [place] [address] [facility] POC UA (STL-PB-M A) PROTEIN [MASS/VOLUM E] IN URINE BY TEST STRIP 30 mg/dL 12/30 Specimen Type: URINE No comment entered. Ordering Provider: COURTNEY GOODEN Report Released Date/Time: Dec 30, 2024 09:53 AM Reporting Lab: [facility] [address] [facility] [address] Performing Lab: [facility] [address] [facility] [address] [facility] [address] [facility] POC UA (STL-PB-M A) HEMOGLOBIN [MASS/VOLUM E] IN URINE BY TEST STRIP Negative 12/30 Specimen Type: URINE No comment entered. Ordering Provider: COURTNEY GOODEN Report Released Date/Time: Dec 30, 2024 09:53 AM Reporting Lab: [facility] [address] [facility] [address] Performing Lab: [facility] [address] [facility] [address] [place] [facility] POC UA (STL-PB-M A) LEUKOCYTES [PRESENCE] IN URINE Negative 12/30 Specimen Type: URINE No comment entered. Ordering Provider: COURTNEY GOODEN MMY Report Released Date/Time: Dec 30, 2024 09:53 AM Reporting Lab: [place] [facility] [address] [facility] [address] [facility] [address] Performing Lab: [place] [facility] [address] [facility] [address] [facility] POC UA (STL-PB-M A) COLOR OF URINE Mary 12/30 Specimen Type: URINE No comment entered. Ordering Provider: COURTNEY GOODEN [facility] Report Released Date/Time: Dec 30, 2024 09:53 AM Reporting Lab: [place] [facility] [address] [facility] [address] [facility] [address] Performing Lab: [place] [facility] [address] [facility] [address] [facility] POC UA (STL-PB-M A) SPECIFIC GRAVITY OF URINE >=1.030 1.005 - 1.030 12/30 Specimen Type: URINE No comment entered. Ordering Provider: COURTNEY GOODEN MMY Report Released Date/Time: Dec 30, 2024 09:53 AM Reporting Lab: [place] [facility] [address] [facility] [address] Performing Lab: [place] [facility] [address] [facility] [address] [facility] POC UA (STL-PB-M A) UROBILINOGE N [UNITS/VOLU ME] IN URINE 1.0 {Surendra 'U}/dL 0.1 - 1.0 12/30 Specimen Type: URINE No comment entered. Ordering Provider: COURTNEY GOODEN MMY Report Released Date/Time: Dec 30, 2024 09:53 AM Reporting Lab: [place] [facility] [address] [facility] [address] Performing Lab: [place] [facility] [address] [facility] [address] [place] [facility] POC UA (STL-PB-M A) BILIRUBIN.T OTAL [PRESENCE] IN URINE Negative 12/30 Specimen Type: URINE No comment entered. Ordering Provider: COURTNEY GOODEN MMY Report Released Date/Time: Dec 30, 2024 09:53 AM Reporting Lab: [place] [facility] [address] [facility] [address] Performing Lab: [place] [facility] [address] [facility] [address] [place] [facility] POC UA (STL-PB-M A) KETONES [MASS/VOLUM E] IN URINE BY TEST STRIP Tracemg/ dL 12/30 Specimen Type: URINE No comment entered. Ordering Provider: COURTNEY GOODEN MMY Report Released Date/Time: Dec 30, 2024 09:53 AM Reporting Lab: [place] [facility] [address] [facility] [address] Performing Lab: [place] [facility] [address] [facility] [address] [facility] POC UA (STL-PB-M A) GLUCOSE [MASS/VOLUM E] IN URINE BY TEST STRIP Negative mg/dL 12/30 Specimen Type: URINE No comment entered. Ordering Provider: COURTNEY GOODEN MMY Report Released Date/Time: Dec 30, 2024 09:53 AM Reporting Lab: [place] [facility] [address] [facility] [address] Performing Lab: [place] [facility] [address] [facility] [address] [place] [facility] POC UA (STL-PB-M A) PH OF URINE 6.0 5.0 - 8.0 12/30 Specimen Type: URINE No comment entered. Ordering Provider: COURTNEY GOODEN MMY Report Released Date/Time: Dec 30, 2024 09:53 AM Reporting Lab: [place] [facility] [address] [facility] [address] Performing Lab: [place] [facility] [address] [facility] [address] [place] [facility] POC UA (STL-PB-M A) NITRITE [PRESENCE] IN URINE BY TEST STRIP Negative 12/30 Specimen Type: URINE No comment entered. Ordering Provider: COURTNEY GOODEN MMY Report Released Date/Time: Dec 30, 2024 09:53 AM Reporting Lab: [facility] [address] [facility] [address] Performing Lab: [facility] [address] [facility] [address] [facility] POC UA (STL-PB-M A) CLARITY OF URINE Clear 12/30 Specimen Type: URINE No comment entered. Ordering Provider: COURTNEY GOODEN MMY Report Released Date/Time: Dec 30, 2024 09:53 AM Reporting Lab: [facility] [address] [facility] [address] Performing Lab: [facility] [address] [facility] [address] [facility] VITAMIN D, 25-HYDROX Y 25-HYDROXYV ITAMIN D3 [MASS/VOLUM E] IN SERUM OR PLASMA 35.8 ng/mL 30 - 96 12/28 Specimen Type: SERUM No comment entered. Ordering Provider: COURTNEY GOODEN MMY Report Released Date/Time: Dec 29, 2023 12:57 PM Reporting Lab: [place] [facility] [address] [place] [address] Performing Lab: [facility] [facility] [address] [place] [address] [facility] HGA1C HEMOGLOBIN A1C/HEMOGLO BIN.TOTAL IN BLOOD 5.8 4.0 - 6.0 12/28 Specimen Type: BLOOD No comment entered. Ordering Provider: COURTNEY GOODEN MMY Report Released Date/Time: Dec 29, 2023 12:57 PM Reporting Lab: [place] [facility] [address] [place] [address] Performing Lab: [place] [facility] [address] [place] [address] [facility] Vital Signs Combined list of inpatient and outpatient Vital Signs from Department of Defense and Veterans Affairs, ranging from 12 months to all on record, depending upon the facility. Vital Sign Value Date Comments Source SYSTOLIC BLOOD PRESSURE 122 02/17/2025 14:15:01 [place] [facility] DIASTOLIC BLOOD PRESSURE 83 02/17/2025 14:15:01 [place] [facility] PULSE OXIMETRY 98 % 02/17/2025 14:15:01 [facility] [place] [facility] TEMPERATURE 98 02/17/2025 14:15:01 [facility] [place] [facility] PULSE 61 02/17/2025 14:15:01 [place] [facility] RESPIRATION 18 02/17/2025 14:15:01 [facility] [place] [facility] SYSTOLIC BLOOD PRESSURE 120 01/31/2025 09:33:00 [place] [facility] DIASTOLIC BLOOD PRESSURE 76 01/31/2025 09:33:00 [place] [facility] PULSE OXIMETRY 93 % 01/31/2025 09:33:00 [facility] [place] [facility] WEIGHT 224.6 01/31/2025 09:33:00 [place] [facility] BMI 31 kg/m2 01/31/2025 09:33:00 [place] [facility] TEMPERATURE 98.2 01/31/2025 09:33:00 [place] [facility] PULSE 56 01/31/2025 09:33:00 [place] [facility] RESPIRATION 18 01/31/2025 09:33:00 [place] [facility] SYSTOLIC BLOOD PRESSURE 111 01/14/2025 09:05:03 [place] [facility] DIASTOLIC BLOOD PRESSURE 72 01/14/2025 09:05:03 [place] [facility] PULSE OXIMETRY 96 % 01/14/2025 09:05:03 [facility] PAIN 2 01/14/2025 09:05:03 [place] [facility] TEMPERATURE 97.9 01/14/2025 09:05:03 [place] [facility] PULSE 53 01/14/2025 09:05:03 [place] [facility] RESPIRATION 18 01/14/2025 09:05:03 [place] [facility] SYSTOLIC BLOOD PRESSURE 125 12/30/2024 08:27:00 [place] [facility] DIASTOLIC BLOOD PRESSURE 82 12/30/2024 08:27:00 [place] [facility] PULSE OXIMETRY 94 % 12/30/2024 08:27:00 [facility] [place] [facility] WEIGHT 228.6 12/30/2024 08:27:00 [place] [facility] BMI 31 kg/m2 12/30/2024 08:27:00 [place] [facility] PAIN 0 12/30/2024 08:27:00 [place] [facility] HEIGHT 72.0 12/30/2024 08:27:00 [place] [facility] TEMPERATURE 98.3 12/30/2024 08:27:00 [place] [facility] PULSE 74 12/30/2024 08:27:00 [place] [facility] RESPIRATION 18 12/30/2024 08:27:00 [place] [facility] SYSTOLIC BLOOD PRESSURE 155 12/27/2024 10:45:43 [place] [facility] DIASTOLIC BLOOD PRESSURE 87 12/27/2024 10:45:43 [place] [facility] PULSE OXIMETRY 97 % 12/27/2024 10:45:43 [facility] [place] [facility] WEIGHT 235.9 12/27/2024 10:45:43 [place] [facility] BMI 32 kg/m2 12/27/2024 10:45:43 [place] [facility] PAIN 0 12/27/2024 10:45:43 [place] [facility] TEMPERATURE 97.3 12/27/2024 10:45:43 [place] [facility] PULSE 50 12/27/2024 10:45:43 [place] [facility] RESPIRATION 20 12/27/2024 10:45:43 [place] [facility] Encounters Combined list of: 1) Encounters from Department of [facility] Affairs facilities going backup to the last 18 months, not all VA inpatient encounters are included; 2) Encounters from the Department of Defense facilities going backup to 280 months. Location Location Details Encounter Type Encounter Number Reason For Visit Attending Provider ADM Date DC Date Status Disposition Source [facility] Outpatient Encounter [id number] 09/10 [facility] [place] [facility] OFF/OP EST OCTOBER X REQ PHY/QHP [id number] Diagnos is: ICD-10- CM H61.21 Impacte d cerumen , right ear TAJ SOMMER CHIO A 09/25 [facility]OP EST MAY X REQ PHY/QHP [id number] Diagnos is: ICD-10- CM H61.21 Impacte d cerumen , right ear TAJ SOMMER A 10/02 [facility] OFFICE O/P EST LOW 20 MIN [id number] Diagnos is: ICD-10- CM H61.21 Impacte d cerumen , right ear PEPE SORIA 10/02 [facility] Outpatient Encounter [id number] [place] 10/06 [facility] FAC[facility] FEE [id number] Diagnos is: ICD-10- CM H93.13 Tinnitu s, bilater al GRAVES,MAIA CLAU A 10/14 [facility] [place] [facility] WILD TEST PURE TONE [id number] Diagnos is: ICD-10- CM H93.13 Tinnitu s, bilater al GRAVES,MAIA CLAU A 10/14 [place] [facility] Outpatient Encounter [id number] 10/21 [facility]OP EST MAY X REQ PHY/QHP [id number] Diagnos is: ICD-10- CM R42 Dizzine ss and giddine ss TAJ SOMMER CHIO A 10/23 [facility] Outpatient Encounter [id number] 10/26 [facility] Outpatient Encounter [id number] 11/06 [facility] Outpatient Encounter [id number] 11/09 [facility] TE[facility]ALTH FACILITY FEE [id number] Diagnos is: ICD-10- CM Z46.1 Encount er for fitting and adjustm ent of hearing aid MAIA WILLIAM A 11/23 [facility] [place] [facility] CONFORMITY EVALUATION [id number] [id number] Diagnos is: ICD-10- CM Z46.1 Encount er for fitting and adjustm ent of hearing aid MAIA WILLIAM A 11/23 [place] [facility] [place] [facility] NRPSYC TST EVAL PHYS/[place] [id number] Diagnos is: ICD-10- CM 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 Outpatient Encounter [id number] 12/15 [facility] TE[facility] FAC[facility] FEE [id number] Diagnos is: ICD-10- CM Z46.1 Encount er for fitting and adjustm ent of hearing aid MAIA WILLIAM A 12/28 [facility]MOD IFYING [id number] [id number] Diagnos is: ICD-10- CM Z46.1 Encount er for fitting and adjustm ent of hearing aid MAIA WILLIAM 12/28 [place] [facility] Outpatient Encounter [id number] 12/31 [facility]AC[facility] FEE [id number] Diagnos is: ICD-10- CM 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 Naik Jostin 02/15 [facility] Outpatient Encounter [id number] 03/23 [facility] Outpatient Encounter [id number] [id number] 03/26 [facility] OFF/OP EST OCTOBER X REQ PHY/QHP [id number] Diagnos is: ICD-10- CM Z23 Encount er for immuniz BONNIE Ivy 03/31 [facility] Outpatient Encounter [id number] [id number] 04/08 [facility] Outpatient Encounter [id number] [id number] 04/19 [facility] Outpatient Encounter [id number] [id number] 05/03 [facility] Outpatient Encounter [id number] [id number] 05/21 [facility] TELEHEALTH FACILITY FEE [id number] Diagnos is: ICD-10- CM M79.674 Pain in right toe(s) Rea NICOLE M 05/31 [facility] OFFICE O/P EST LOW 20 MIN [id number] [id number] Diagnos is: ICD-10- CM M79.674 Pain in right toe(s) Rea NICOLE M 05/31 [facility] Outpatient Encounter [id number] [id number] 06/09 [facility] Outpatient Encounter [id number] 06/10 [facility] [place] [facility] Outpatient Encounter [id number] [id number] 06/10 [place] [facility] Outpatient Encounter [id number] [id number] 06/14 [facility] OFF/OP EST OCTOBER X REQ PHY/QHP [id number] Diagnos is: ICD-10- CM M79.674 Pain in right toe(s) CUSTRED,TO RRI J 06/14 [facility] Outpatient Encounter [id number] 06/30 [facility] Outpatient Encounter [id number] [id number] 07/07 [facility] Outpatient Encounter [id number] [id number] 07/19 [facility] Outpatient Encounter [id number] [id number] 07/20 [facility] Outpatient Encounter [id number] 07/22 [facility] OFF/OP EST MAY X REQ PHY/QHP [id number] Diagnos is: ICD-10- CM R07.9 Chest pain, unspeci fied CUSTRED,TO RRI J 09/20 [facility] Encounter [id number] 09/20 [facility] OFFICE O/P EST MOD 30 MIN [id number] Diagnos is: ICD-10- CM R07.9 Chest pain, unspeci fied Narcisa GOODEN 10/04 [facility] Outpatient Encounter [id number] [id number] 10/14 [facility] Outpatient Encounter [id number] 10/19 [facility] [place] [facility] Outpatient Encounter [id number] 11/01 [place] [facility] [place] [facility] Outpatient Encounter [id number] [id number] 11/02 [place] [facility] [place] [facility] Outpatient Encounter [id number] [id number] 11/10 [place] [facility] Outpatient Encounter [id number] [id number] 12/27 [facility] Outpatient Encounter [id number] [id number] 12/27 [facility] Outpatient Encounter [id number] 12/27 [facility] [place] [facility] PSYTX W PT 30 MINUTES [id number] [id number] Diagnos is: ICD-10- CM F41.9 Anxiety disorde r, unspeci fied DAYO REECE 12/27 [place] [facility] [id number] Diagnos is: ICD-10- CM F41.9 Anxiety disorde r, unspeci fied DAYO REECE D 12/27 [facility] Outpatient Encounter [id number] [id number] DAYO REECE D 12/27 [facility] Encounter [id number] 12/27 [facility] Outpatient Encounter [id number] 12/30 [facility] OFFICE O/P EST MOD 30 MIN [id number] Diagnos is: ICD-10- CM F41.9 Anxiety disorde r, unspeci fied Narcisa GOODEN 12/30 [facility] [place] [facility] Outpatient Encounter [id number] 12/30 [place] [facility] Outpatient Encounter [id number] 12/31 [facility] Outpatient Encounter [id number] 12/31 [facility] OFF/OP EST MAY X REQ PHY/QHP [id number] Diagnos is: ICD-10- CM R19.7 Diarrhe a, unspeci fied BONNIE GRIER 01/03 [facility] OFF/OP EST MAY X REQ PHY/QHP [id number] [id number] Diagnos is: ICD-10- CM R19.7 Diarrhe a, unspeci fied KAMINSKI,AN BOBBI D 01/14 [facility] OFFICE O/P EST LOW 20 MIN [id number] Diagnos is: ICD-10- CM R19.7 Diarrhe a, unspeci fied FRANKS,MARCIA ER E III 01/14 [facility] Outpatient Encounter [id number] 01/20 [facility] OFF/OP EST MAY X REQ PHY/QHP [id number] Diagnos is: ICD-10- CM R19.7 Diarrhe a, unspeci fied MARVELBONNIE 01/31 [facility] OFF/OP EST MAY X REQ PHY/QHP [id number] Diagnos is: ICD-10- CM R19.7 Diarrhe a, unspeci fied BONNIE GRIER R 02[facility]03 [facility] REQ PHY/QHP [id number] Diagnos is: ICD-10- CM R19.7 Diarrhe a, unspeci fied MARVELBONNIE R 02/07 [facility] Outpatient Encounter [id number] 02/08 [facility] Encounter [id number] 02/09 [facility] Outpatient Encounter [id number] 02/10 [facility] Out[facility] Encounter [id number] 02/10 [facility] Social History Combined list of available smoking, tobacco, and other social history from Department of Defense and Veterans Affairs facilities. Social History Type Response Date Comment Sourc e Tobacco smoking status NHIS VA-TOBACCO QUIT 15 YRS OR MORE 01/15/2024 [facility] History of tobacco use NE-TOBACCO FORMER USER 01/15/2024 [facility] History of tobacco use VA-TOBACCO FORMER USER [facility]20[facility] History of tobacco use NE-TOBACCO FORMER USER 03/13/2021 [facility] History of tobacco use QUIT TOBACCO >7 Y EARS AGO 03/24/2018 [facility] History of tobacco use QUIT TOBACCO >7 Y EARS AGO 02/11/2018 [facility] History of tobacco use LIFETIME NON-USER OF TOBACCO 04/15/2008 [facility] History of tobacco use QUIT TOBACCO >7 Y EARS AGO 04/07/2008 [facility] History of tobacco use QUIT TOBACCO >7 Y EARS AGO 12/23/2007 [facility] History of tobacco use QUIT TOBACCO >7 Y EARS AGO 11/23/2007 [facility] History of tobacco use QUIT TOBACCO >7 Y EARS AGO 10/22/2007 [facility] Plan of Care List of future care activities from Department of [facility] facilities. Additional future care activities may be listed in the Assessment and Plan section. Date/Time Care Activity Care Activity Detail Facili ty 02/17/2025 AMBULATORY - MEDICINE AMBULATORY - MEDICI NE [facility] Advance Directives List of completed, amended, or rescinded Advance Directives on record at Department of [facility] facilities. An actual copy of the Directive is not included. Date Advance Directive Provider Source 03/17/2017 ADVANCE DIRECTIVE SEJAL [facility]CO[facility]
--- OUTSIDE RECORDS SUMMARY | 2025-02-17 14:33 | XMS_ITS | Encounter Summary ---
Author Name [facility] [place] Organization [facility] [place] Address [address] [place] [address] Care Team Providers Care Glass Sagger Name Role Phone ILIANA GOODEN Primary Care [...] PART A Jul 24, 2016 PART A [id number] MORENITAMARIO BEGUM PATIENT MEDICARE (WNR) MEDICARE (M) PART A Jul 24, 2016 PART A [id number] [phone] MARIO MCLAUGHLIN PATIENT Selected Encounter This section includes the information on record at [place] for the Encounter. Date/Time Encounter Type Encounter Description Reason Pro vider Source IHE Encounter Template Text not used by [facility] Advance Directives: All historical and current Section Date Range: From patient's date of to the date document was created. This section includes ALL of a patient's completed or amended VA Advance and Rescinded Directives. The entries below indicate that a directive exists for the patient, but an actual copy is not included with this document. The data comes from all [place] facilities. Date Advance Directives Provider Source Mar 17, 2017 ADVANCE DIRECTIVE SEJAL ACOSTA [facility]
--- OUTSIDE RECORDS SUMMARY | 2025-02-17 14:33 | XMS_ITS | Patient Health Record ---
Author Organization [facility] Address [address] [place] [address] Care Team Providers Care House Wirer Helper Name Role Phone Martha DELGADO Primary Care Provider Gibson Mcqueen Unavailable [phone] Allergies No Known Allergies Reason For Referral No Information Medications Medication SIG (Take, Route, Frequency, Duration) Notes Start Date End Date Status Sildenafil Citrate 100 MG Tablet 1 tablet Orally q week 4 doses per month Active Tamsulosin HCl 0.4 MG Capsule 1 capsule Orally Once a day Active Donepezil HCl 10 MG Tablet 1 tablet Orally Once a day Active Montelukast Sodium 10 MG Tablet 1 tablet Orally Once a day Active Clobetasol Propionate skin cream Active Vitamin D3 Active Social History Tobacco Use: Social History Observation Description Date Details (start date - stop date) Never Smoker NA - NA Social History Drugs/Alcohol: Social Info Question Answer Notes Alcohol Screen (Audit-C) Did you have a drink containing alcohol in the past year? No Points 0 Interpretation Negative Drugs Have you used drugs other than those for medical reasons in the past 12 months? No Tobacco Use: Social Info Question Answer Notes xTobacco Use/Smoking Are you a nonsmoker Additional Details Category Social Info Options Details Drugs/Alcohol: Do you smoke marijuana? De nies Do you drink alcohol? No Problems Problem Type SNOMED Code ICD Code Onset Dates Problem Status W/U Status Risk Notes Problem Elevated PSA (418962950) Elevated prostate specific antigen [PSA] (R97.20) Active confirmed Problem Family history of prostate cancer (985819510) Family history of prostate cancer (Z80.42) Active confirmed Problem Erectile dysfunction (disorder) (161775196) ED (erectile dysfunction) (N52.9) Active confirmed Problem Benign prostatic hypertrophy with outflow obstruction (614579205) BPH loc w urin obs/LUTS (N40.1) Active confirmed Encounters Encounter Location Date Provider Diagnosis [facility] [address] [place] [address] 02/10/2025 Gibson Jeffery Plan Of Treatment Pending Test Test Name Order Date UA Without Micro-Auto, Machine - [id number] 11/25/2022 UA Without Micro-Auto, Machine - [id number] 0 12/18/2022 PSA Diagnostic--[id number] 11/25/2022 Next Appt Details Provider Name:Gibson croft, 03/03/2025 11:30:00 AM, [address], [place], [address], Insurance Providers Payer Name Payer Address Payer Phone Subscriber Number Group Number Insured Name Patient Relationship to Insured Coverage Start Date Coverage End Date [employer] [address] [place] [phone] [id number] Bobby Kiran Self - patient is the insured Medical (General) History Medical History History ICD Code chronic bladder infections BPH with LUTs elevated PSA Surgical History Surgery Date(Month/Year) shoulder surgery eyelid surgery foot surgery Hospitalization History Reason Date(Month/Year) surgeries
--- OUTSIDE RECORDS SUMMARY | 2025-02-17 14:33 | XMS_ITS | Patient Health Record ---
Author Organization [facility] Address [address] [place] [address] Care Team Providers Care Veneer Jointer Helper Name Role Phone Terrebonne Delmar Primary Care Provider NAVI Cates Unavailable [phone] DavidKamaljit hernandez Unavailable [phone] Allergies No Known Allergies Results Component Value Reference Range Notes Urinalysis, Routine Reviewed date:07/22/2024 10:00:35 AM Interpretation: Performing Lab: Notes/Report: Urine-Color yellow Appearance clear Glucose - Bilirubin - Ketones - Specific [place] 1.015 Occult Blood - pH 6.0 Urine Protein - Urobilinogen,Semi-Qn - Nitrite, Urine - WBC Esterase - Reason For Referral No Information Medications Medication SIG (Take, Route, Frequency, Duration) Notes Start Date End Date Status Montelukast Sodium 10 MG 1 tablet Orally Once a day Active Tamsulosin HCl 0.4 MG 1 capsule Orally Once a day Active Donepezil HCl 10 MG 1 tablet Orally Once a day Not-Taking Clobetasol Propionate skin cream *Pick strength-form from Medispan for eRX* Not-Taking Vitamin D3 *Pick strength-form from Medispan for eRX* Not-Taking Sildenafil Citrate 100 MG 1 tablet Orally q week 4 doses per month Not-Taking Social History Tobacco Use: Social History Observation Description Date Details (start date - stop date) Former Smoker NA - NA Tobacco Control (Standard) Question Answer Notes Tobacco use: Former smoker How long has it been since you last smoked? Grea ter than 10 years Problems Problem Type SNOMED Code ICD Code Onset Dates Problem Status W/U Status Risk Notes Problem Elevated PSA (111106871) Elevated prostate specific antigen [PSA] (R97.20) Active confirmed Problem Erectile dysfunction (disorder) (808317772) ED (erectile dysfunction) (N52.9) Active confirmed Problem Family history of prostate cancer (749320778) Family history of prostate cancer (Z80.42) Active confirmed Problem Benign prostatic hypertrophy with outflow obstruction (321833272) BPH loc w urin obs/LUTS (N40.1) Active confirmed Vital Signs Heart Rate 64 /min 07/22/2024 Height-cm 182.88 cm 07/22/2024 Blood pressure diastolic 85 mm Hg 07/22/2024 Weight-kg 104.33 kg 07/22/2024 Height 72 in 07/22/2024 Blood pressure systolic 135 mm Hg 07/22/2024 Weight 230 lbs 07/22/2024 BMI 31.19 kg/m2 07/22/2024 Encounters Encounter Location Date Provider Diagnosis [employer] [address] [facility] [place] [address] 07/22/2024 Kamaljit Tilley Elevated prostate specific antigen [PSA] R97.20 ; BPH loc w urin obs/LUTS N40.1 ; ED (erectile dysfunction) N52.9 and Family history of prostate cancer Z80.42 [employer] [address] [facility] [place] [address] 05/03/2024 NAVI GRIMM Elevated prostate specific antigen [PSA] R97.20 Assessments Encounter Date Diagnosis (ICD Code) Assessment Notes Treatment Notes Treatment Clinical Notes Section Notes 05/03/2024 Elevated prostate specific antigen [PSA] (ICD-10 - R97.20) 07/22/2024 Elevated prostate specific antigen [PSA] (ICD-10 - R97.20) 73 y/o M with elevated PSA, family h/o prostate cancer, BPH w/LUTS, and ED. Prostate MRI in December 2022 revealed PIRADS 2 findings with 55gm volume. PSA 4.93 at last visit and at 4.7 now. We discussed the option of continuing 6 months, but will transition for patient to followup in 1 year with new PSA and noninvasive urodynamics with IPSS. For now, and through shared decision making we are in agreement with no further workup or intervention at this time with care plan, aside from what was mentioned. Patient has no other voiced concerns or questions. Patient satisfied with plan. Plan: - Continue Flomax - Continue Viagra PRN for ED - RTC in 1 year with new PSA - RTC or call sooner with any concerns I saw this patient today following the plan of care established by Dr. Grimm. Supervision in the clinic, during the encounter was performed by the Doctor. 07/22/2024 BPH loc w urin obs/LUTS (ICD-10 - N40.1) 73 y/o M with elevated PSA, family h/o prostate cancer, BPH w/LUTS, and ED. Prostate MRI in December 2022 revealed PIRADS 2 findings with 55gm volume. PSA 4.93 at last visit and at 4.7 now. We discussed the option of continuing 6 months, but will transition for patient to followup in 1 year with new PSA and noninvasive urodynamics with IPSS. For now, and through shared decision making we are in agreement with no further workup or intervention at this time with care plan, aside from what was mentioned. Patient has no other voiced concerns or questions. Patient satisfied with plan. Plan: - Continue Flomax - Continue Viagra PRN for ED - RTC in 1 year with new PSA - RTC or call sooner with any concerns I saw this patient today following the plan of care established by Dr. Grimm. Supervision in the clinic, during the encounter was performed by the Doctor. 07/22/2024 ED (erectile dysfunction) (ICD-10 - N52.9) 73 y/o M with elevated PSA, family h/o prostate cancer, BPH w/LUTS, and ED. Prostate MRI in December 2022 revealed PIRADS 2 findings with 55gm volume. PSA 4.93 at last visit and at 4.7 now. We discussed the option of continuing 6 months, but will transition for patient to followup in 1 year with new PSA and noninvasive urodynamics with IPSS. For now, and through shared decision making we are in agreement with no further workup or intervention at this time with care plan, aside from what was mentioned. Patient has no other voiced concerns or questions. Patient satisfied with plan. Plan: - Continue Flomax - Continue Viagra PRN for ED - RTC in 1 year with new PSA - RTC or call sooner with any concerns I saw this patient today following the plan of care established by Dr. Grimm. Supervision in the clinic, during the encounter was performed by the Doctor. 07/22/2024 Family history of prostate cancer (ICD-10 - Z80.42) 73 y/o M with elevated PSA, family h/o prostate cancer, BPH w/LUTS, and ED. Prostate MRI in December 2022 revealed PIRADS 2 findings with 55gm volume. PSA 4.93 at last visit and at 4.7 now. We discussed the option of continuing 6 months, but will transition for patient to followup in 1 year with new PSA and noninvasive urodynamics with IPSS. For now, and through shared decision making we are in agreement with no further workup or intervention at this time with care plan, aside from what was mentioned. Patient has no other voiced concerns or questions. Patient satisfied with plan. Plan: - Continue Flomax - Continue Viagra PRN for ED - RTC in 1 year with new PSA - RTC or call sooner with any concerns I saw this patient today following the plan of care established by Dr. Grimm. Supervision in the clinic, during the encounter was performed by the Doctor. Plan Of Treatment Pending Test Test Name Order Date UA Without Micro-Auto [id number] 11/25/2022 UA Without Micro-Auto [id number] 12/18/2022 PSA Diagnostic--[id number] 11/25/2022 PSA, TOTAL (5363) 08/05/2023 PSA-Diagnostic 05/03/2024 Future Test Test Name Order Date PSA, total (cpt 41794) 09/28/2023 Next Appt Details Provider Name:Kamaljit Tilley, 07/19/2025 10:40:00 AM, [address] [place], [address], Insurance Providers Payer Name Payer Address Payer Phone Subscriber Number Group Number Insured Name Patient Relationship to Insured Coverage Start Date Coverage End Date VAC[employer]UM [address] [place] [id number] Bobby Kiran Self - patient is the insured Medical (General) History Medical History History ICD Code chronic bladder infections BPH with LUTs elevated PSA Surgical History Surgery Date(Month/Year) shoulder surgery eyelid surgery foot surgery Hospitalization History Reason Date(Month/Year) surgeries
[2025-02-17 14:38] VITALS: BP 121/74; PULSE 58; RESP 17; TEMP 36.7; O2SAT 96; BMI 27.5
--- NOTE | 2025-02-17 14:41 | ECG_ITS ---
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 Measurements Intervals [place] Rate: 56 P: 67 NM: 210 QRS: -37 QRSD: 96 T: -3 QT: 417 QTc: 405 Interpretive Statements SINUS BRADYCARDIA WITH FIRST DEGREE AV BLOCK INFERIOR MYOCARDIAL INFARCTION , PROBABLY OLD [40+ ms Q WAVE AND/OR ST/T ABNORMALITY IN II/aVF] No previous ECG available for comparison Electronically Signed On 02-18-2025 22:41:43 CDT by Parish Paulino M.D. [id number]
[2025-02-17 16:42] VITALS: BP 145/73; PULSE 61; RESP 16; O2SAT 98
--- NOTE | 2025-02-17 16:44 | XRR_ITS ---
PROCEDURE INFORMATION: Exam: XR Abdomen Exam date and time: 02/17/2025 4:55 PM Age: 74 years old Clinical indication: Abdominal pain; Generalized; Additional info: Abdominal pain and chest pain TECHNIQUE: Imaging protocol: Radiologic exam of the abdomen. Views: 2 Views. Upright and supine views. COMPARISON: No relevant prior studies available. FINDINGS: Gastrointestinal tract: Mild stool burden. No bowel dilation. Intraperitoneal space: Normal. No free air. Bones/joints: Unremarkable for age. XR/XR acute abdomen series [id number] IMPRESSION: No acute findings.
--- NOTE | 2025-02-17 16:45 | ED_ITS ---
HPI - Chest Pain 2 General: Chief Complaint: Chest Pain Stated Complaint: chest pain Time Seen by Provider: 02/17/25 16:39 History of Present Illness: 74-year-old man with a history of insomn ia and BPH who presents emergency room with chest and abdominal pain. Started about an hour ago but has since resolved. Send pain in his left upper quadrant that radiated up into his chest. No fevers. No cough. He says he is had diarrhea for several weeks now. He tells me at some point someone told him that he had had a heart attack based on what they saw on his EKG. Related Data Home Medications ?Medication ?Instructions ?Recorded ?Confirmed montelukast 10 mg tablet 10 mg PO DAILY PRN 08/24/20 08/18/24 trazodone 100 mg tablet 100 mg PO DAILY 06/01/21 Previous Rx's ?Medication ?Instructions ?Recorded tamsulosin 0.4 mg capsule 0.4 mg PO .AT BEDTIME #90 ca ps 09/12/20 erythromycin 5 mg/gram (0.5 %) eye 0.5 inch ophthalmic (eye) QID 7 02/22/23 ointment (3.5 gram tube) days #3.5 grams Allergies Allergy/AdvReac Type Severity Reaction Status Date / Time No Known Allergies Allergy Verified 08/18/24 15:16 Review of Systems 2 Narrative: Constitutional symptoms: Negative except as documented in HPI. Skin symptoms: Negative except as documented in HPI. Eye symptoms: Negative except as documented in HPI. ENMT symptoms: Negative except as documented in HPI. Respiratory symptoms: Negative except as documented in HPI. Cardiovascular symptoms: Negative except as documented in HPI. Gastrointestinal symptoms: Negative except as documented in HPI. Genitourinary symptoms: Negative except as documented in HPI. Musculoskeletal symptoms: Negative except as documented in HPI. Neurologic symptoms: Negative except as documented in HPI. Psychiatric symptoms: Negative except as documented in HPI. Endocrine symptoms: Negative except as documented in HPI. PFSH ED 2 PFSH: Medical History (Updated 02/17/25 @ 17:53 by Stephany Bacon MD) Persistent insomnia Erectile dysfunction BPH loc w urin obs/LUTS Surgical History History of eyelid surgery History of shoulder surgery rt History of colonoscopy Social History Smoking and tobacco/nicotine status: unknown if used tobacco/nicotine Alcohol intake: never Marital status: Single Current occupational status: employed Physical Exam 2 Narrative: EXAM NARRATIVE: General: Alert, no acute distress. Skin: Warm, dry. Head: Normocephalic, atraumatic. Neck: Supple, trachea midline. Eye: Extraocular movements are intact. Ears, nose, mouth and throat: mucosa moist. Cardiovascular: Regular, Normal peripheral perfusion. Respiratory: Lungs are clear to auscultation, respirations are non-labored, breath sounds are equal, Symmetrical chest wall expansion. Gastrointestinal: Soft, Nontender, Non distended Musculoskeletal: Normal ROM, no deformity. Neurological: Alert and oriented, No focal neurological deficit observed. Psychiatric: Cooperative, appropriate mood & affect. Course 2 Vital Signs: Vital signs: Vital Signs Temperature 98.0 F 02/17/25 14:38 Pulse Rate 55 L 02/17/25 17:30 Respiratory Rate 22 H 02/17/25 17:30 Blood Pressure 129/72 02/17/25 17:30 Pulse Oximetry 95 02/17/25 17:30 Oxygen Delivery Me thod Room Air 02/17/25 17:30 MDM - Chest Pain Medical Decision Making Differential diagnosis for patient with chest pain includes but is not limited to and based on the above HPI, review of systems and physical exam: Pneumonia. unstable angina. angina. Acute coronary syndrome / HI. Pulmonary embolism. Costochondritis / musculoskeletal. Pleurisy. Pericarditis. Esophageal spasm. Pancreatis. Cholecystitis. Orders placed to evaluate differential diagnosis based on the above differential, HPI and physical exam EKG: Time 1433. Rate 56. Sinus bradycardia, nonspecific ST-T changes, no ectopy, first-degree AV block, This was reviewed and interpreted by myself the ER physician at 1438 Acute abdominal series: chest x-ray: No acute process. No obvious infiltrates. No pneumothorax. No cardiomegaly. This was reviewed and interpreted by myself the emergency room physician Abdomen x-ray: Nonspecific bowel gas pattern. No evidence of free air or obstruction. This was reviewed and interpreted by myself the emergency room physician. I also reviewed the radiology report. Lab Review: Laboratory results were reviewed and interpreted by myself the emergency room physician. No leukocytosis. No anemia. No renal failure. Lipase is negative. Troponin is negative. I reviewed the patient's medical record. Reexamination: No further pain while he has been here. Patient remained stable. No increased work of breathing. No altered mental status. No focal motor deficits. Assessment and plan: Abdominal pain Chest pain - Discharged home - Discussed plan with patient. Answered any questions. - Evaluation and treatment of this problem were appropriate in the emergency setting. Lab Data 02/17/25 16:54 02/17/25 16:54 Radiology Impressions Chest/Abdomen X-ray 02/17/25 16:44 IMPRESSION: No acute findings. Laboratory Results WBC 3.92 10^3/uL (3.29-11.43) 02/17/25 16:54 RBC 4.62 10^6/uL (3.85-5.65) 02/17/25 16:54 Hgb 13.00 g/dL (11.27-16.99) 02/17/25 16:54 Hct 39.7 % (37-53) 02/17/25 16:54 MCV 85.9 fl (82-101) 02/17/25 16:54 MCH 28.1 pg (27-33) 02/17/25 16:54 MCHC 32.7 g/dL (30-55) 02/17/25 16:54 RDW 13.4 % (12.1-15.1) 02/17/25 16:54 Plt Count 146 10^3/cmm (157-399) L 02/17/25 16:54 MPV 9.8 fL (7.4-10.4) 02/17/25 16:54 Neut % (Auto) 42.6 % 02/17/25 16:54 Lymph % (Auto) 39.5 % 02/17/25 16:54 Rich % (Auto) 15.8 % 02/17/25 16:54 Eos % (Auto) 1.8 % 02/17/25 16:54 Baso % (Auto) 0.3 % 02/17/25 16:54 Neut # (Auto) 1.67 10^3/uL (1.8-7.7) L 02/17/25 16:54 Lymph # (Auto) 1.6 10^3/uL (0.8-4.8) 02/17/25 16:54 Rich # (Auto) 0.6 10^3/uL (0.2-0.9) 02/17/25 16:54 Eos # (Auto) 0.1 10^3/uL (0.0-0.8) 02/17/25 16:54 Baso # (Auto) 0.0 10^3/uL (0.0-0.1) 02/17/25 16:54 Nucleated RBC % (auto) 0 % 02/17/25 16:54 Nucleated RBCs # 0.0 /100WBC 02/17/25 16:54 Sodium 139 mmol/L (136-145) 02/17/25 16:54 Potassium 3.6 mmol/L (3.5-5.1) 02/17/25 16:54 Chloride 102 mmol/L (98-107) 02/17/25 16:54 Carbon Dioxide 23 mmol/L (22-29) 02/17/25 16:54 Anion Gap 17.6 (5-19) 02/17/25 16:54 BUN 12 mg/dL (8-23) 02/17/25 16:54 Creatinine 1.0 mg/dL (0.7-1.2) 02/17/25 16:54 GFR Calculation Not Reportable 02/17/25 16:54 Glucose 193 mg/dL (65-115) H 02/17/25 16:54 Calculated Osmolality 293 mOsm/kg (285-295) 02/17/25 16:54 Calcium 8.6 mg/dL (8.5-10.5) 02/17/25 16:54 Total Bilirubin 0.6 mg/dL (0.15-1.2) 02/17/25 16:54 AST 15 U/L (0-40) 02/17/25 16:54 ALT 12 U/L (0-41) 02/17/25 16:54 Alkaline Phosphatase 105 U/L (40-130) 02/17/25 16:54 Troponin T Baseline 7 ng/L (0-15) 02/17/25 16:54 Total Protein 6.4 g/dL (6.6-8.7) L 02/17/25 16:54 Albumin 3.5 g/dL (3.5-5.2) 02/17/25 16:54 Globulin 2.9 g/dL (1.3-4.6) 02/17/25 16:54 Lipase 12 U/L (13-60) L 02/17/25 16:54 All radiology interpretation(s) finalized by discharge Discharge Plan Discharge Patient Disposition: Home Clinical Impression: Non-cardiac chest pain, Abdominal pain Condition: Stable Prescriptions: No Action povidone-iodine [Betadine Swabsticks] 10 % swab 1 applic topical ONCE Qty: 150 0RF lidocaine (PF) 10 mg/mL (1 %) solution 10 mg SUBCUT ONCE Qty: 3 0RF montelukast 10 mg tablet 10 mg PO DAILY PRN trazodone 100 mg tablet 100 mg PO DAILY erythromycin 5 mg/gram (0.5 %) ointment 0.5 inch ophthalmic (eye) QID 7 Days Qty: 3.5 0RF tamsulosin 0.4 mg capsule 0.4 mg PO .AT BEDTIME Qty: 90 3RF Discharge Orders: Discharge ED (Routine); Ordered 02/17/25 Ordered By: Stephany Bacon Referrals: Jenny Kasper MD [Primary Care Provider, Family Practice] Discharge Diet: Usual diet Discharge Activity: Increase activity as tolerated Patient Instructions: Abdominal Pain (ED), Noncardiac Chest Pain (ED), Opioid Safety, Pain Management, Patient Portal & Juli Instructions Activity Restrictions/Additional Instructions: Thank you for choosing [facility] for your healthcare needs today. You have been screened and evaluated and felt safe for discharge. Health conditions do change or evolve sometimes and as such it is important that you follow up with your Primary Doctor to be re checked, 3-5 days is a general good time frame for follow up. You are always welcome to return to the ED for re assessment if your symptoms are worsening or you have new concerns Print Language: Martiniquais Coding Level of Care Code ED Surgeon/President for Rojas German
[2025-02-17 17:00] VITALS: BP 145/73; PULSE 43; RESP 18; O2SAT 94
[2025-02-17 17:13] LABS: Hematocrit 39.7 % (37-53); Hemoglobin 13.00 g/dL (11.27-16.99); Mean Corpuscular HGB Conc 32.7 g/dL (30-55); Mean Corpuscular Hemoglobin 28.1 pg (27-33); Mean Corpuscular Volume 85.9 fl (82-101); Nucleated Red Blood Cells % 0 %; Platelet Count 146 10^3/cmm (157-399); Red Blood Count 4.62 10^6/uL (3.85-5.65); White Blood Count 3.92 10^3/uL (3.29-11.43)
[2025-02-17 17:27] LABS: Troponin(5th) Baseline 7 ng/L (0-15)
[2025-02-17 17:30] VITALS: BP 129/72; PULSE 55; RESP 22; O2SAT 95
[2025-02-17 17:40] LABS: Alanine Aminotransferase 12 U/L (0-41); Albumin Level 3.5 g/dL (3.5-5.2); Alkaline Phosphatase 105 U/L (40-130); Blood Urea Nitrogen 12 mg/dL (8-23); Calcium 8.6 mg/dL (8.5-10.5); Carbon Dioxide 23 mmol/L (22-29); Chloride 102 mmol/L (98-107); Creatinine Clr Calc Pharmacy 77.6005; Globulin 2.9 g/dL (1.3-4.6); Glucose 193 mg/dL (65-115); Lipase 12 U/L (13-60); Osmolality Calculated 293 mOsm/kg (285-295); Sodium 139 mmol/L (136-145); Total Protein 6.4 g/dL (6.6-8.7)
[2025-02-17 17:47] LABS: Anion Gap 17.6 (5-19); Aspartate Amino Transferase 15 U/L (0-40); Potassium 3.6 mmol/L (3.5-5.1)
[2025-02-17 18:20] VITALS: BP 155/72; PULSE 55; O2SAT 95
== END 2025-02-17 18:20 | disposition home or self-care (01) ==
PROVIDERS: Emergency Provider Emergency Medicine; PCP Family Medicine
DX: R07.89 Other chest pain (principal); R10.9 Unspecified abdominal pain
CPT/HCPCS: 36415; 74022; 80053; 83690; 84484; 85025; 93005; 99285

== ENCOUNTER 2025-04-28 15:38 | Emergency (ER) | payer OTHER, SELFPAY ==
--- OUTSIDE RECORDS SUMMARY | 2025-02-28 04:30 | XMS_ITS ---
Author Organization [facility] Address [address] [place] [address] Care Team Providers Care Rehab Technician Name Role Phone Hever ADHIKARI MD, [place] Primary Care Provider Un available Cesia Parra Unavailable [phone] DANNY, [place] Unavailable Unavailable Rasheed Chan Unavailable [phone] REASON FOR VISIT Acute diarrhea Encounters Encounter Location Date Provider Diagnosis [facility] [address] [place] [address] 02/28/2025 Rasheed Chan Plan Of Treatment Next Appt Details Provider Name:Cesia calzada, 05/24/2025 11:00:00 AM, [address] [place], [address], Progress Notes * Bobby KIRAN LDOB:[birth year] (74 yo M)Acc No.[id number]:02/28/2025 History and Physical Patient: Bobby Saucedo Provider: Jostin Chan MD :1950 A ge:74 Y S ex:Male Date:02/28/2025 Address:[address] [place] [id number] Pcp:Lencho Garay Check Out:10:33 AM GRAVEL HAULER Subjective: * Chief Complaints: * A cute diarrhea Billing Information: * Procedure Codes: * Electronic signature of Deysi Chan MD on 04/28/2025 at 03:44 PM GRAVEL HAULER Sign off status: Pending * Provider: Jostin Chan MD Date: 0 02/28/2025 Generated for Josr hopper/Hunter/Stella on: 1 06/28/2024 03:44 PM GRAVEL HAULER
--- OUTSIDE RECORDS SUMMARY | 2025-03-03 05:30 | XMS_ITS ---
Author Organization [facility] Address [address] [place] [address] Care Team Providers Care Qa Lead Name Role Phone Hever ADHIKARI MD, [place] Primary Care Provider Un available Cesia Parra Unavailable [phone] Martha DELGADO Unavailable Unavailable Gibson Jeffery Unavailable [phone] REASON FOR VISIT Diarrhea Encounters Encounter Location Date Provider Diagnosis [facility] [address] [place] [address] 03/03/2025 Gibson Jeffery Plan Of Treatment Next Appt Details Provider Name:Cesia calzada, 05/24/2025 11:00:00 AM, [address], [place], [address], Progress Notes * Bobby KIRAN LDOB:[birth year] (74 yo M)Acc No.[id number]:03/03/2025 Progress Notes Patient: Christina joeBobby canales Provider: SONAL Villalobos :1950 A ge:74 Y S ex:Male Date:03/03/2025 Address:[address] [place] [phone] Pcp:Lencho Garay Subjective: * Chief Complaints: * D iarrhea Billing Information: * Procedure Codes: * Electronic signature of INGA Nguyen on 04/28/2025 at 03:44 PM [employer] Sign off status: Pending * Provider: Quin Jeffery APRN HOLISTIC NUTRITIONIST-BC Date: 0 03/03/2025 Generated for Josr hopper/Hunter/Stella on: 1 06/28/2024 03:44 PM [employer]
[2025-04-28 15:42] VITALS: BP 158/62; PULSE 65; RESP 17; TEMP 36.8; O2SAT 97; BMI 31.1
--- OUTSIDE RECORDS SUMMARY | 2025-04-28 15:44 | XMS_ITS | Patient Health Record ---
Author Organization [facility] Address [address] [place] [address] Care Team Providers Care Jira Developer Name Role Phone Brisbane Delmar Primary Care Provider NAVI Cates Unavailable [phone] DavidKamaljit hernandez Unavailable [phone] Allergies No Known Allergies Results Component Value Reference Range Notes Urinalysis, Routine Reviewed date:07/22/2024 10:00:35 AM Interpretation: Performing Lab: Notes/Report: Urine-Color yellow Appearance clear Glucose - Bilirubin - Ketones - Specific [place] 1.015 Occult Blood - pH 6.0 Urine [...] W/U Status Risk Notes Problem Elevated PSA (339961346) Elevated prostate specific antigen [PSA] (R97.20) Active confirmed Problem Erectile dysfunction (disorder) (232734706) ED (erectile dysfunction) (N52.9) Active confirmed Problem Family history of prostate cancer (349195059) Family history of prostate cancer (Z80.42) Active confirmed Problem Benign prostatic hypertrophy with outflow obstruction (679345393) BPH loc w urin obs/LUTS (N40.1) Active confirmed Vital Signs Heart Rate 64 /min 07/22/2024 Blood pressure diastolic 85 mm Hg 07/22/2024 Height-cm 182.88 cm 07/22/2024 Weight-kg 104.33 kg 07/22/2024 Height 72 in 07/22/2024 Blood pressure systolic 135 mm Hg 07/22/2024 Weight 230 lbs 07/22/2024 BMI 31.19 kg/m2 07/22/2024 Encounters Encounter Location Date Provider Diagnosis [facility] [address] [place] [address] 07/22/2024 Kamaljit Tilley Elevated prostate specific antigen [PSA] R97.20 ; BPH loc w urin obs/LUTS N40.1 ; ED (erectile dysfunction) N52.9 and Family history of prostate cancer Z80.[address] [facility] [address] [place] [address] 05/03/2024 NAVI GRIMM Elevated prostate specific antigen [...] Test Name Order Date UA Without Micro-Auto [id number] 12/18/2022 UA Without Micro-Auto [id number] 11/25/2022 PSA Diagnostic--[id number] 11/25/2022 PSA, TOTAL (5363) 08/05/2023 PSA-Diagnostic 05/03/2024 Future Test Test Name Order Date PSA, total (cpt 21589) 09/28/2023 Next Appt Details Provider Name:Kamaljit Tilley, 07/19/2025 10:40:00 AM, [address] [place], [address], Insurance Providers Payer Name Payer Address Payer Phone Subscriber Number Group Number Insured Name Patient Relationship to Insured Coverage Start Date Coverage End Date [employer] [address] [place] [id number] Bobby Kiran Self - patient is the insured Medical (General) History Medical History History ICD Code chronic bladder infections BPH with LUTs elevated PSA Surgical History Surgery Date(Month/Year) shoulder surgery eyelid surgery foot surgery Hospitalization History Reason Date(Month/Year) surgeries
--- NOTE | 2025-04-28 15:46 | CTR_ITS ---
PROCEDURE INFORMATION: Exam: CT Head Without Contrast Exam date and time: 04/28/2025 3:54 PM Age: 74 years old Clinical indication: Injury or trauma; Fall; Concussion/head injury; Additional info: Fall, head injury TECHNIQUE: Imaging protocol: Computed tomography of the head without contrast. Radiation optimization: All CT scans at this facility use at least one of these dose optimization techniques: automated exposure control; mA and/or kV adjustment per patient size (includes targeted exams where dose is matched to clinical indication); or iterative reconstruction. COMPARISON: MR head wo/w con [id number] 03/21/2021 8:24 AM RADIATION DOSE METRICS: Total DLP (mGy-cm): 1169.7 FINDINGS: Brain: 15 mm chronic lacunar infarct has developed in the left basal ganglia since the prior exam. No other new parenchymal abnormality. No mass effect or midline shift. No intracranial hemorrhage. Moderate cerebral and cerebellar volume loss. Cerebral ventricles: No ventriculomegaly. Paranasal sinuses: Visualized sinuses are unremarkable. No fluid levels. Mastoid air cells: Visualized mastoid air cells are well aerated. Bones: Arterial calcifications in the internal carotids and intracranial vertebrals. Soft tissues: Unremarkable. CT/CT head wo con* [id number] IMPRESSION: No acute intracranial abnormality.
--- NOTE | 2025-04-28 15:46 | XRR_ITS ---
PROCEDURE INFORMATION: Exam: XR Left Shoulder Exam date and time: 04/28/2025 4:04 PM Age: 74 years old Clinical indication: Injury or trauma; Fall; Blunt trauma (contusions or hematomas); Shoulder; Left TECHNIQUE: Imaging protocol: Radiologic exam of the left shoulder. Views: 2 or more views. COMPARISON: No relevant prior studies available. FINDINGS: Bones/joints: No acute fracture or dislocation. Mild degenerative changes in the glenohumeral joint Soft tissues: Normal. XR/XR shoulder LT min 2V* [id number] IMPRESSION: No acute fracture or dislocation. .
--- NOTE | 2025-04-28 16:07 | W.ED.EXTPRO ---
HPI - Extremity Problem General: Chief complaint: Extremity Injury, Upper Stated complaint: lt shoulder inj Time Seen by Provider: 04/28/25 15:45 History of Present Illness: 74-year-old man with a history of insomnia and BPH who presents emergency room with shoulder pain over his 4 moore while he was deer hunting. He says he hit his head but did not lose consciousness and is not on anticoagulation. He is having pain in his left shoulder. He can move it some but has pain with this. No obvious deformities. He says he had rotator cuff problems before. No chest pain. No abdominal pain. No other extremity injuries. No lacerations. No bruising. Related Data Home Medications ?Medication ?Instructions ?Recorded ?Confirmed montelukast 10 mg tablet 10 mg PO DAILY PRN 08/24/20 08/18/24 trazodone 100 mg tablet 100 mg PO DAILY 06/01/21 08/18/24 Previous Rx's ?Medication ?Instructions ?Recorded tamsulosin 0.4 mg capsule 0.4 mg PO .AT BEDTIME #90 caps 09/12/20 erythromycin 5 mg/gram (0.5 %) eye 0.5 inch ophthalmic (eye) QID 7 02/22/23 ointment (3.5 gram tube) days #3.5 grams hydrocodone 5 mg-acetaminophen 325 1 tab PO Q6H PRN pain #20 tabs 04/28/25 mg tablet polyethylene glycol 3350 17 17 g PO DAILY #510 grams 04/28/25 gram/dose oral powder (Miralax) Allergies Allergy/AdvReac Type Severity Reaction Status Date / Time No Known Allergies Allergy Verified 08/18/24 15:16 Review of Systems Narrative: Constitutional symptoms: Negative except as documented in HPI. Skin symptoms: Negative except as documented in HPI. Eye symptoms: Negative except as documented in HPI. ENMT symptoms: Negative except as documented in HPI. Respiratory symptoms: Negative except as documented in HPI. Cardiovascular symptoms: Negative except as documented in HPI. Gastrointestinal symptoms: Negative except as documented in HPI. Genitourinary symptoms: Negative except as documented in HPI. Musculoskeletal symptoms: Negative except as documented in HPI. Neurologic symptoms: Negative except as documented in HPI. Psychiatric symptoms: Negative except as documented in HPI. Endocrine symptoms: Negative except as documented in HPI. PFS ED PFSH: Medical History (Updated 04/28/25 @ 16:40 by Stephany Bacon MD) Persistent insomnia Erectile dysfunction BPH loc w urin obs/LUTS Surgical History History of eyelid surgery History of shoulder surgery rt History of colonoscopy Social History Smoking and tobacco/nicotine status: unknown if used tobacco/nicotine Alcohol intake: never Marital status: Single Current occupational status: employed Physical Exam Narrative: EXAM NARRATIVE: General: Alert, no acute distress. Skin: Warm, dry. Head: Normocephalic, atraumatic. Neck: Supple, trachea midline. Eye: Extraocular movements are intact. Ears, nose, mouth and throat: mucosa moist. Cardiovascular: Regular, Normal peripheral perfusion. Respiratory: Lungs are clear to auscultation, respirations are non-labored, breath sounds are equal, Symmetrical chest wall expansion. Gastrointestinal: Soft, Nontender, Non distended Musculoskeletal: Limited range of motion of the left arm secondary to pain. No deformity. Neurological: Alert and oriented, No focal neurological deficit observed. Psychiatric: Cooperative, appropriate mood & affect. Course Vital Signs: Vital signs: Vital Signs Temperature 98.3 F 04/28/25 15:42 Pulse Rate 65 04/28/25 15:42 Respiratory Rate 17 04/28/25 15:42 Blood Pressure 158/62 04/28/25 15:42 Pulse Oximetry 97 04/28/25 15:42 Oxygen Delivery Me thod Room Air 04/28/25 15:42 MDM - Extremity (Nontraumatic) Medical Decision Making Medical decision making: Patient's reason for coming to the emergency room: Shoulder pain Social determinants retired and I reviewed the patient's medical record. I last saw him here in the emergency room in January for chest pain. I reviewed the patient's current home meds Patient is not on any narcotics at home. Reviewed the prescription monitoring program Medical decision making: Differential diagnosis including but not limited to and based on the above HPI, review of systems and physical exam: In this patient with a musculoskeletal extremity traumatic injury and x-ray is being ordered to rule out fractures and dislocations. Orders placed to evaluate differential diagnosis based on the above differential, HPI and physical exam X-ray of the left shoulder shows no acute process. This was reviewed and interpreted by myself the emergency room physician. I also reviewed the radiology report. Assessment of risk: Level of risk: Low risk Reexamination: Patient remained stable. No increased work of breathing. No altered mental status. No focal motor deficits. Assessment and plan: Rotator cuff injury ?[place] in the emergency room - Discharged home - Discussed plan with patient. Answered any questions. - Evaluation and treatment of this problem were appropriate in the emergency setting. Lab Data Radiology Impressions Head CT 04/28/25 15:46 IMPRESSION: No acute intracranial abnormality. Shoulder X-Ray 04/28/25 15:46 IMPRESSION: No acute fracture or dislocation. . All radiology interpretation(s) finalized by discharge Discharge Plan Discharge Patient Disposition: Home Clinical Impression: Injury of left rotator cuff Condition: Stable Prescriptions: New hydrocodone-acetaminophen 5-325 mg tablet 1 tab PO Q6H PRN (Reason: pain) Qty: 20 0RF polyethylene glycol 3350 [Miralax] 17 gram/dose powder 17 g PO DAILY Qty: 510 0RF Rx Instructions: Take 1 scoop daily while taking pain medications. No Action povidone-iodine [Betadine Swabsticks] 10 % swab 1 applic topical ONCE Qty: 150 0RF lidocaine (PF) 10 mg/mL (1 %) solution 10 mg SUBCUT ONCE Qty: 3 0RF montelukast 10 mg tablet 10 mg PO DAILY PRN trazodone 100 mg tablet 100 mg PO DAILY erythromycin 5 mg/gram (0.5 %) ointment 0.5 inch ophthalmic (eye) QID 7 Days Qty: 3.5 0RF tamsulosin 0.4 mg capsule 0.4 mg PO .AT BEDTIME Qty: 90 3RF Discharge Orders: Discharge ED (Routine); Ordered 04/28/25 Ordered By: Stephany Bacon Referrals: Maximilian Leo MD [Physician, Orthopedics] - 4-7 days Referral Note: Please call for follow-up with Dr. Leo orthopedic surgeon of your choice if pain persists Wilda Barron MD [Primary Care Provider, Family Practice] Discharge Diet: Usual diet Discharge Activity: Increase activity as tolerated Patient Instructions: Rotator Cuff Injury (ED), Shoulder Immobilizer (ED), Opioid Safety, Pain Management, Patient Portal & Juli Instructions Activity Restrictions/Additional Instructions: Thank you for choosing [facility] for your healthcare needs today. You have been screened and evaluated and felt safe for discharge. Health conditions do change or evolve sometimes and as such it is important that you follow up with your Primary Doctor to be re checked, 3-5 days is a general good time frame for follow up. You are always welcome to return to the ED for re assessment if your symptoms are worsening or you have new concerns Print Language: Guinean Coding Level of Care Code ED Basket Operator for Rojas German
[2025-04-28] MEDS: HYDROcodone-acetaminophen 10-325 mg Tablet 1 TAB PO (16:34)
== END 2025-04-28 16:53 | disposition home or self-care (01) ==
PROVIDERS: Emergency Provider Emergency Medicine; PCP Family Medicine
DX: S46.002A Unspecified injury of muscle(s) and tendon(s) of the rotator cuff of left shoulder, initial encounter (principal); X58.XXXA Exposure to other specified factors, initial encounter
CPT/HCPCS: 70450; 73030; 99284; J9999

== ENCOUNTER → 2025-05-06 07:46 | Outpatient (BNVA) | payer OTHER, SELFPAY | PROVIDERS: PCP Family Medicine; Visit Provider Orthopaedic Surgery | DX: M25.512 Pain in left shoulder (principal); S46.002A Unspecified injury of muscle(s) and tendon(s) of the rotator cuff of left shoulder, initial encounter; V86.99XA Unspecified occupant of other special all-terrain or other off-road motor vehicle injured in nontraffic accident, initial encounter; M19.012 Primary osteoarthritis, left shoulder | CPT/HCPCS: 99204 ==

== ENCOUNTER 2025-05-16 13:57 | Outpatient (CLI) | payer OTHER, SELFPAY ==
--- NOTE | 2025-05-16 14:30 | MRR_ITS ---
PROCEDURE INFORMATION: Exam: MR Left Upper Extremity Joint Without Contrast; Shoulder Exam date and time: 05/16/2025 2:35 PM Age: 74 years old Clinical indication: Pain; Shoulder; Left; Injury x 3 weeks, possible rotator cuff tear, limited range of motion; Additional info: Left shoulder pain, possible rotator cuff tear. No history of recent trauma or surgery is otherwise provided. TECHNIQUE: Imaging protocol: Magnetic resonance imaging of the left upper extremity without contrast. Exam focused on the shoulder. 181image(s) are provided. COMPARISON: Shoulder radiograph report of 04/28/2025. MRI shoulder report of 09/12/2020. FINDINGS: Bones/joints: There is some motion artifact present. No diffuse acute abnormal marrow signal intensity is appreciated. There are some subchondral cystic appearing changes present. There is hypertrophic degeneration, signal about the acromioclavicular junction in the interval along with subtle stranding along the coracoclavicular ligamentous components which otherwise appear to be grossly intact. This can also be seen with processes including sprain, contusion related sequela. There is some trace joint fluid overall present. There is glenohumeral joint space narrowing and spurring with the associated degeneration. There is some subacromial narrowing and spurring present. No other significant interval changes are appreciated. Glenoid labrum: There is labral irregularity overall present indicative of tearing both anteriorly and posteriorly on these non arthrogram views with some similar appearance and underlying glenoid subchondral cystic related changes. Supraspinatus tendon: Supraspinatus demonstrates tendinopathy with the some distal articular partial-thickness tearing. There is some localized fluid signal suggestive of localized distal insertional focal full-thickness tearing. Infraspinatus tendon: Infraspinatus demonstrates some distal tendinopathy, articular surface partial-thickness fraying. Subscapularis tendon: Subscapularis demonstrates some distal tendinopathy. Teres minor tendon: Teres minor appears grossly intact. Tendon of biceps brachii: The long head biceps course is demonstrated of the bicipital groove. There is some irregularity suggestive of tendinopathy, subtle interstitial tearing superiorly along with some positional artifact. Glenohumeral ligaments: There is some thickening of the joint capsule and ligamentous components with the anterior superior predominance suggestive of sprain related sequela. Soft tissues: No significant subcutaneous fluid collections are appreciated. There do appear to be some areas of subcutaneous edematous stranding. There is some stranding suggestive of associated muscular strain for example about the associated deltoid margin superiorly as well as suspected of the trapezius clavicle level insertion. MR/MR shoulder LT wo con* [id number] IMPRESSION: 1. There is hypertrophic degeneration with subacromial narrowing and spurring. This contributes to indentation of the myotendinous junction of the supraspinatus predominantly. 2. There is some marrow edematous and adjacent fluid signal most pronounced of the distal clavicle, acromioclavicular junction and could be seen with processes including contusion and sprain related sequela without significant interval separation currently appreciated. In addition, there is fluid stranding of the coracoclavicular ligamentous components suggestive of sprain with otherwise grossly intact appearance. If there are associated symptoms, consider pre and post stress imaging plain film views. 3. There is some muscular strain type signal demonstrated adjacent to the acromioclavicular margins including of the deltoid as well as trapezius. 4. There is some irregularity of the glenoid labrum overall present suggestive of degeneration, tearing. 5. No complete rotator cuff tearing, retraction changes are currently appreciated with some tendinopathy predominant changes.
== END 2025-05-16 13:58 | disposition home or self-care (01) ==
LOC: RAD 13:57
PROVIDERS: PCP Family Medicine; Visit Provider Orthopaedic Surgery
DX: M25.512 Pain in left shoulder (principal)
CPT/HCPCS: 73221

== ENCOUNTER → 2025-05-23 09:50 | Outpatient (BNVA) | payer OTHER, SELFPAY | PROVIDERS: PCP Family Medicine; Visit Provider Orthopaedic Surgery | DX: S46.812A Strain of other muscles, fascia and tendons at shoulder and upper arm level, left arm, initial encounter (principal); M19.012 Primary osteoarthritis, left shoulder; X58.XXXA Exposure to other specified factors, initial encounter | CPT/HCPCS: 99213 ==